=== PATIENT | male | born 1935 | race Caucasian/White ===

== ENCOUNTER 2019-04-28 13:01 | Emergency (ER) | payer OTHER, MEDICARE | END 2019-04-28 15:03 | disposition home or self-care (01) | LOC: FER 13:01 ==

== ENCOUNTER 2019-04-29 14:42 | Inpatient (IN) | payer OTHER, MEDICARE ==
--- NOTE | 2019-04-29 15:05 | PDOC ---
History of Present Illness - General Chief Complaint: Pain Stated Complaint: LEFT BACK PAIN POSSIBLE KIDNEY STONE Time Seen by Provider: 04/29/19 14:56 History Source: Patient, Family - History of Present Illness Travel History: Yes Initial Comments: 04/29/19 16:42 The patient is an 83 year old male with a significant PMH of CAD (s/p CABG x3), HTN, CVA, hyperlipidemia, dementia, and chronic back pain who presents to the emergency department with left flank pain and hematuria x 2 days, associated with nausea. Pain described as sharp and stabbing, associated with some left groin pain; worse with movement. Pt was seen yesterday in the [facility] ED with bilateral flank pain and 2 episodes of hematuria, a/w nausea. His symptoms improved, and he was dcd with urology followup. However last night he continued to have flank pain, worse on the left. Appt is later next week to see Dr Roy, but called today due to pain and referred to the ED for further evaluation. Denies fever, chills, vomiting, diarrhea and constipation. No bloody stools. Denies dysuria, frequency, urgency. +hematuria. Allergies: Penicillins Past surgical history: CABG Social history: Former smoker. No reported alcohol or drug use. PCP: Dr. Brendan Brantley 04/29/19 16:52 Past History - Past Medical History Allergies/Adverse Reactions: Allergies Allergy/AdvReac Type Severity Reaction Status Date / Time Penicillins Allergy Unknown Swelling Verified 04/29/19 14:50 Home Medications: Ambulatory Orders Amlodipine Besylate 10 mg PO DAILY 04/29/19 Aspirin [Aspirin EC] 81 mg PO DAILY 04/29/19 Atorvastatin Ca [Lipitor] 80 mg PO HS 04/29/19 Donepezil HCl 1 tab PO HS 04/29/19 Memantine HCl 10 mg PO BID 04/29/19 Metformin HCl [Glucophage] 500 mg PO DAILY 04/29/19 Sertraline HCl 50 mg PO TID 04/29/19 Vitamin B Complex [B Complex] 1 each PO DAILY 04/29/19 Anemia: No Asthma: No Cancer: Yes (PROSTATE) Cardiac Disorders: Yes (CABG x 3, CAD) CVA: Yes COPD: No CHF: No Dementia: Yes Diabetes: No GI Disorders: No Disorders: No HTN: Yes Hypercholesterolemia: Yes Liver Disease: No Psychiatric Problems: Yes (DEPRESSION) Seizures: No Thyroid Disease: No - Surgical History Abdominal Surgery: No Appendectomy: No Cardiac Surgery: (TRIPLE BYPASS) Cholecystectomy: No Lung Surgery: No Neurologic Surgery: No Orthopedic Surgery: No - Immunization History Td Vaccination: Yes TDAP Vaccination: No Immunization Up to Date: (UNSURE) - Suicide/Smoking/Psychosocial Hx Smoking Status: Yes Smoking History: Former smoker Have you smoked in the past 12 months: Yes Number of Cigarettes Smoked Daily: 0 If you are a former smoker, when did you quit?: JUN 2016 'Breaking Loose' booklet given: 06/22/15 Hx Alcohol Use: No Drug/Substance Use Hx: No Substance Use Type: None Hx Substance Use Treatment: No Review of Systems - Review of Systems Able to Perform ROS?: Yes Comments:: 04/29/19 15:02 Constitutional: no fevers or chills. +decreased appetite HEENT: no headache or dizziness. No congestion. CVS: no cp or syncope. Resp: no sob. No cough. Gastrointestinal: +flank and abdominal pain. +nausea. no vomiting or diarrhea. Genitourinary: +hematuria. +frequency. no dysuria, urgency MUSCULOSKELETAL: No joint pain and swelling. No neck pain. +back pain. SKIN: no redness or skin changes, no discharge, no rash. No wounds. Hematologic: no easy bruising/bleeding. NEUROLOGIC: No headache, dizziness, LOC or altered mental status. No weakness, numbness or tingling. Psych: no anxiety or depression Allergic/Immunologic: pcn allergy All other systems reviewed and negative, or as documented in HPI. 04/29/19 15:05 04/29/19 15:34 04/29/19 16:53 *Physical Exam - Physical Exam Comments: 04/29/19 15:03 General: Well appearing, awake and alert, NAD. HEENT: NCAT, PERRL, EOMI, clear conjunctiva, anicteric, moist mucus membranes, clear oropharynx, no oral lesions.. Neck: neck supple, FROM Resp: CTAB, normal and even respirations, no respiratory distress CVS: RRR, no murmurs, 2+ peripheral pulses throughout, no peripheral edema Abdomen: soft, nondistended, no peritoneal signs. +left flank TTP. : normal external genitalia, no lesions, normal testicular lie, +bilateral scrotal tenderness. No inguinal hernia. no scrotal sac erythema or discoloration Back: normal inspection; +left CVAT. MSK: no edema, ADEN x4, ROM intact. No clubbing or cyanosis. normal bulk and tone. Neuro: alert, no focal neuro deficits. 5/5 plantar and dorsiflexion. SILT in all extremities. Psych: calm and cooperative Skin: warm and well perfused, cap refill <2 sec, normal color 04/29/19 15:35 04/29/19 16:45 04/29/19 17:01 ED Treatment Course - LABORATORY CBC & Chemistry Diagram: 04/29/19 15:27 04/29/19 15:27 - RADIOLOGY Radiology Studies Ordered: Category Date Time Status SPIRAL- RENAL-STONE CT [CT] Stat CT Scan 04/29/19 14:54 Ordered Medical Decision Making - Medical Decision Making 04/29/19 15:02 See HPI for details. Prior notes reviewed, including admissions, discharges and consultations. Vital signs reviewed, soft BP Vital Signs Temp Pulse Resp BP Pulse Ox 97.5 F L 64 18 98/56 L 99 04/29/19 14:50 04/29/19 14:50 04/29/19 14:50 04/29/19 14:50 04/29/19 14:50 DDX. Renal colic, obstructed stone, biliary colic, metabolic/electrolyte derangements. GERD, PUD, esophageal spasm, pancreatitis, hepatitis, constipation , colitis, gastroenteritis, cholecystitis, UTI, pyelonephritis, ileus, SBO, medication side effect, hernia, appendicitis, diverticulitis, mesenteric ischemia. msk strain, mesenteric adenitis, psoas abscess. AAA. laboratory results and imaging reviewed, basic labs and lytes notable for +mild leukocytosis of 11K and HECTOR, Cr 1.9, when baseline is normal UA_neg for infection preliminary. f/u cultures and diff pending urine culture from yesterday as well CT sathish: left prox ureteral stone measuring 5mm, with associated hydro. renal cysts, nephrolithiasis unobstructing also seen, these unlikely to be the culprit. no other acute pathology noted scrotal sono with b/l varicoceles, no e/o hydrocele/torsion or testicular/ scrotal pathology ED course -interventions: analgesia, IVF, reassess - BP soft, 90/60s - has not eaten much today, so will hydrate. 04/29/19 16:31 - given additional zofran for nausea, getting hydration, pain improved with tylenol - repeat VS normalizing, mentating. no fever, nontoxic appearing - Urology cs with Dr Rangel online tutor, discussed care and admission for symptomatic ureteral stone with obstruction and HECTOR - Dr Brantley on vacation, unable to reach 04/29/19 17:01 - also spoke with Dr Malin- updated on case, give pt nontoxic/septic appearing, with unremarkable UA except for the HECTOR/mild leukocytosis from obstructed ureteral stone, stays at [facility] unless clinical course changes or needs operative management. IV abx x1 dose, IV ceftriaxone appropriate Admit for obstructed ureteral stone, hydronephrosis/ with HECTOR. Discussed results and management plan with pt and family member at bedside, agree with impression, treatment indications, recommendations and plan. s/o to Dr Godinez regarding admission at 04/29/19 17:04 *DC/Admit/Observation/Transfer Diagnosis at time of Disposition: Ureteral stone with hydronephrosis, HECTOR (acute kidney injury) - Discharge Dispostion Condition at time of disposition: Guarded Decision to Admit order: Yes Decision to Admit order Date/Time: 04/29/19 16:43 Decision to Admit Order Category Date Time Status Decision to Admit to Hospital Routine Admission 04/29/19 16:28 Ordered - Referrals Referrals: Brendan Brantley MD [Primary Care Provider] - - Patient Instructions - Post Discharge Activity
[2019-04-29] MEDS ORDERED: SODIUM CHLORIDE 0.9% 500 ML INFUS.BAG IV ONE (15:33)
[2019-04-29] MEDS ORDERED: ACETAMINOPHEN 1000 MG/100 ML VIAL (NON FORMULARY) IVPB ONE (15:33)
[2019-04-29] MEDS ORDERED: ACETAMINOPHEN INJECTION 100 ML IVPB ONE (15:38)
[2019-04-29 15:43] LABS: BASO % 2.2 % (0-2.0); EOS % 0.7 % (0-4.5); HEMATOCRIT 36.9 % (35.4-49); HEMOGLOBIN 12.2 GM/dl (11.7-16.9); LYMPH % 13.9 % (8-40); MCH 29.4 pg (25.7-33.7); MEAN CELL VOLUME 89.1 fl (80-96); MEAN PLT VOLUME 8.3 fl (7.5-11.1); MONO % 13.9 % (3.8-10.2); NEUT % 69.3 % (42.8-82.8); PLATELET COUNT 227 K/MM3 (134-434); RBC 4.15 M/mm3 (4.00-5.60); RDW 14.5 % (11.9-15.9); WHITE BLOOD COUNT 11.3 K/mm3 (4.0-10.8)
[2019-04-29 16:04] LABS: ALBUMIN 3.6 g/dl (3.4-5.0); BILIRUBIN,TOTAL 0.8 mg/dl (0.2-1); CREATININE 1.9 mg/dl (0.55-1.3); POTASSIUM 3.9 mmol/L (3.5-5.1)
[2019-04-29] MEDS ORDERED: ONDANSETRON 4 MG/2 ML VIAL IVPUSH ONE (16:42)
[2019-04-29] MEDS ORDERED: ONDANSETRON 4 MG/2 ML VIAL ONE (16:43)
[2019-04-29] MEDS ORDERED: CEFTRIAXONE 1,000 MG in DEXTROSE 5%-WATER - 50 ML IVPB ONE (17:04)
--- NOTE | 2019-04-29 17:27 | HP ---
Admitting History and Physical - Primary Care Physician PCP: Brendan Brantley - Admission Chief Complaint: flank pain History of Present Illness: 83 year old male with a significant PMH of CAD (s/p CABG x3 about 20 years ago) , HTN, CVA, hyperlipidemia, dementia, and chronic back pain who presents to the emergency department with left flank pain and hematuria x 2 days, associated with nausea. Pain described as sharp and stabbing, associated with some left groin pain; worse with movement. Pt was seen yesterday in the [facility] ED with bilateral flank pain and 2 episodes of hematuria, a/w nausea. His symptoms improved, and he was dcd with urology followup. However last night he continued to have flank pain, worse on the left. Appt is later next week to see Dr Roy, but called today due to pain and referred to the ED for further evaluation. 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), Dementia (mild) Cardiovascular: Yes: CAD, HTN, Hyperlipdemia Renal/: Yes: BPH, Other (prostate cancer 20 years ago) - Past Surgical History Past Surgical History: Yes: CABG (x 3) - Smoking History Smoking history: Former smoker Have you smoked in the past 12 months: No Aproximately how many cigarettes per day: 0 If you are a former smoker, when did you quit?: JUN 2016 - Alcohol/Substance Use Hx Alcohol Use: No - Social History Usual Living Arrangement: Yes: With Spouse ADL: Independent Occupation: retired History of Recent Travel: No Home Medications - Allergies Allergies/Adverse Reactions: Allergies Allergy/AdvReac Type Severity Reaction Status Date / Time Penicillins Allergy Unknown Swelling Verified 04/29/19 14:50 - Home Medications Home Medications: Ambulatory Orders Amlodipine Besylate 10 mg PO DAILY 04/29/19 Aspirin [Aspirin EC] 81 mg PO DAILY 04/29/19 Atorvastatin Ca [Lipitor] 80 mg PO HS 04/29/19 Donepezil HCl 1 tab PO HS 04/29/19 Memantine HCl 10 mg PO BID 04/29/19 Metformin HCl [Glucophage] 500 mg PO DAILY 04/29/19 Sertraline HCl 50 mg PO TID 04/29/19 Vitamin B Complex [B Complex] 1 each PO DAILY 04/29/19 Review of Systems - Review of Systems Constitutional: reports: Loss of Appetite (x 3 days) Eyes: reports: No Symptoms HENT: reports: No Symptoms Neck: reports: No Symptoms Cardiovascular: reports: No Symptoms Respiratory: reports: No Symptoms Gastrointestinal: reports: Nausea Genitourinary: reports: Flank Pain (left greater than right), Frequency Musculoskeletal: reports: Back Pain (lumbar area BL) Integumentary: reports: No Symptoms Neurological: reports: No Symptoms Endocrine: reports: No Symptoms Hematology/Lymphatic: reports: No Symptoms Psychiatric: reports: No Symptoms Physical Examination Vital Signs: Vital Signs Temperature 97.9 F 04/29/19 16:47 Pulse Rate 57 L 04/29/19 16:47 Respiratory Rate 16 04/29/19 16:47 Blood Pressure 121/65 04/29/19 16:47 O2 Sat by Pulse Oximetry (%) 99 04/29/19 16:47 Constitutional: Yes: Well Nourished, No Distress, Calm Eyes: Yes: WNL, Conjunctiva Clear, EOM Intact HENT: Yes: WNL, Atraumatic, Normocephalic Neck: Yes: WNL, Supple, Trachea Midline Cardiovascular: Yes: WNL, Regular Rate and Rhythm Respiratory: Yes: WNL, Regular, CTA Bilaterally Gastrointestinal: Yes: WNL, Normal Bowel Sounds, Soft, Tenderness (to LLQ) ...Rectal Exam: Yes: Deferred Renal/: Yes: CVA Tenderness - Left, CVA Tenderness - Right (L>R) Breast(s): Yes: WNL Musculoskeletal: Yes: Back Pain (lumbar BL) Extremities: Yes: WNL Edema: No Peripheral Pulses WNL: Yes Integumentary: Yes: Other (sternotomy scar) Neurological: Yes: WNL, Alert, Oriented ...Motor Strength: LLE (weakness, ambulated with walker), RLE Psychiatric: Yes: WNL, Alert, Oriented Labs: CBC, BMP 04/29/19 15:27 04/29/19 15:27 Imaging - Results Chest X-ray: Report Reviewed (no effusion or infiltartes, sternal wires), Image Reviewed Cat Scan: Report Reviewed (Left nonobstructing nephrolithiasis with a proximal ureter stone measuring 5 cm There is perinephric stranding. No other stones are seen. Gallstones with no CT evidence to suggest acute cholecystitis) EKG: Image Reviewed (HR 53, Qtc 459. No ST abnormalities) Problem List - Problems (1) CVA (cerebrovascular accident) Assessment/Plan: old CVA, residual LE weakness Fall precautions in place Use assistive devices-walker Code(s): I63.9 - CEREBRAL INFARCTION, UNSPECIFIED (2) BPH (benign prostatic hyperplasia) Code(s): N40.0 - BENIGN PROSTATIC HYPERPLASIA WITHOUT LOWER URINRY TRACT SYMP (3) S/P CABG x 3 Code(s): Z95.1 - PRESENCE OF AORTOCORONARY BYPASS GRAFT (4) Prostate CA Code(s): C61 - MALIGNANT NEOPLASM OF PROSTATE (5) Prophylactic measure Assessment/Plan: FEN IVF @ 100cc/hr monitor electrolytes diabetic diet DVT heparin sq Dispo admit to med surg floor full code discharge planning Code(s): Z29.9 - ENCOUNTER FOR PROPHYLACTIC MEASURES, UNSPECIFIED (6) HECTOR (acute kidney injury) Assessment/Plan: fluid bolus given in ED c/w IV hydration monitor Cr if creatinine continue to rise consider renal consult in am avoid nephrotoxic agents Code(s): N17.9 - ACUTE KIDNEY FAILURE, UNSPECIFIED (7) Ureteral stone with hydronephrosis Assessment/Plan: contacted by ED c/w IV hydration ceftriaxone given in ED as per strict I/Os Tylenol for mild to moderate pain, will try to avoid opiates given dementia. Can given Ofrimev if PO tylenol is not sufficient monitor temp and Wbc UA negative, Ucx pending Code(s): N13.2 - HYDRONEPHROSIS WITH RENAL AND URETERAL CALCULOUS OBSTRUCTION (8) CAD (coronary atherosclerotic disease) Assessment/Plan: low fat/cholesterol diet c/w asa Code(s): I25.10 - ATHSCL HEART DISEASE OF [place] CORONARY ARTERY W/O ANG PCTRS Qualifiers: Coronary Disease-Associated Artery/Lesion type: [place] artery [place] vs. transplanted heart: [place] heart Associated angina: angina presence unspecified Qualified Code(s): I25.10 - Atherosclerotic heart disease of [place] coronary artery without angina pectoris (9) Dementia Assessment/Plan: c/w home doses of namenda frequent re-orientation Code(s): F03.90 - UNSPECIFIED DEMENTIA WITHOUT BEHAVIORAL DISTURBANCE (10) HLD (hyperlipidemia) Assessment/Plan: c/w atorvastatin low fat/cholesterol diet Code(s): E78.5 - HYPERLIPIDEMIA, UNSPECIFIED Qualifiers: Hyperlipidemia type: other hyperlipidemia Qualified Code(s): E78.49 - Other hyperlipidemia; E78.4 - Other hyperlipidemia (11) Hypertension Assessment/Plan: c/w amlodopine with hold parameters Code(s): I10 - ESSENTIAL (PRIMARY) HYPERTENSION Qualifiers: Hypertension type: essential hypertension Qualified Code(s): I10 - Essential (primary) hypertension (12) Diabetes Assessment/Plan: c/w metformin BGM ac/HS with novolog sliding scale diabetic diet Code(s): E11.9 - TYPE 2 DIABETES MELLITUS WITHOUT COMPLICATIONS Visit type - Emergency Visit Emergency Visit: Yes ED Registration Date: 04/29/19 Care time: The patient presented to the Emergency Department on the above date and was hospitalized for further evaluation of their emergent condition. - New Patient This patient is new to me today: Yes Date on this admission: 04/29/19 - Critical Care Critical Care patient: No
[2019-04-29] MEDS ORDERED: cefTRIAXone SODIUM 1 GM VIAL ONE (17:35)
[2019-04-29] MEDS ORDERED: DONEPEZIL HCL 5 MG TABLET (FP) PO SCH (22:00)
[2019-04-29] MEDS ORDERED: SODIUM CHLORIDE 1,000 ML IV SCH (22:15)
[2019-04-29] MEDS: MEMANTINE HCL 10 MG TABLET (FP) PO SCH (22:22)
[2019-04-29] MEDS: INSULIN SLIDING SCALE (NOVOLOG) 1 VIAL SQ SCH (22:22)
[2019-04-29] MEDS: ATORVASTATIN CA 80 MG TABLET (FP) PO SCH (22:22)
[2019-04-29 22:39] VITALS: BMI 25.8
[2019-04-29] MEDS: ACETAMINOPHEN 325 MG TABLET (FP) PO PRN (22:45)
[2019-04-30] MEDS: morphine CARPU-JECT 2 MG/1 ML DISP.SYRIN IVPUSH PRN ×2 (03:00→08:42)
[2019-04-30] MEDS: ACETAMINOPHEN 325 MG TABLET (FP) PO PRN ×2 (05:15→15:39)
[2019-04-30] MEDS ORDERED: SERTRALINE HCL 50 MG TABLET (FP) PO SCH (06:00)
[2019-04-30] MEDS: INSULIN SLIDING SCALE (NOVOLOG) 1 VIAL SQ SCH ×3 (06:38→17:31)
[2019-04-30] MEDS ORDERED: metFORMIN HCL 500 MG TABLET (FP) PO SCH (07:00)
--- NOTE | 2019-04-30 09:23 | PN ---
Physical Exam: SUBJECTIVE: Patient seen and examined. OBJECTIVE: Vital Signs Period Temp Pulse Resp BP Sys/[place] Pulse Ox Last 24 Hr 97.5 F-99.7 F 57-64 16-19 98-149/49-65 93-99 GENERAL: The patient is awake, alert, and fully oriented, in no acute distress. HEAD: Normal with no signs of trauma. EYES: PERRL, extraocular movements intact, sclera anicteric, conjunctiva clear. No ptosis. ENT: Ears normal, nares patent, oropharynx clear without exudates, moist mucous membranes. NECK: Trachea midline, full range of motion, supple. LUNGS: Breath sounds equal, clear to auscultation bilaterally, no wheezes, no crackles, no accessory muscle use. HEART: Regular rate and rhythm, S1, S2 without murmur, rub or gallop. ABDOMEN: Soft, nontender, nondistended, normoactive bowel sounds, no guarding, no rebound, no hepatosplenomegaly, no masses. EXTREMITIES: 2+ pulses, warm, well-perfused, no edema. NEUROLOGICAL: Cranial nerves II through XII grossly intact. Normal speech, gait not observed. PSYCH: Normal mood, normal affect. SKIN: Warm, dry, normal turgor, no rashes or lesions noted Laboratory Results - last 24 hr 04/29/19 04/29/19 04/29/19 15:15 15:27 15:27 WBC 11.3 H RBC 4.15 Hgb 12.2 Hct 36.9 MCV 89.1 MCH 29.4 MCHC 33.0 RDW 14.5 Plt Count 227 MPV 8.3 Absolute Neuts (auto) 7.8 Neutrophils % 69.3 Lymphocytes % 13.9 D Monocytes % 13.9 H Eosinophils % 0.7 D Basophils % 2.2 H D Sodium 138 Potassium 3.9 Chloride 104 Carbon Dioxide 29 Anion Gap 5 L BUN 32.0 H Creatinine 1.9 H Est GFR (CKD-EPI)AfAm 37.48 Est GFR (CKD-EPI)NonAf 32.34 POC Glucometer Random Glucose 96 Calcium 9.0 Total Bilirubin 0.8 AST 17 ALT 17 Alkaline Phosphatase 67 Total Protein 7.0 Albumin 3.6 Urine Color Yellow Urine Appearance Clear Urine pH 5.0 Urine Protein Negative Urine Glucose (UA) Negative Urine Ketones Negative Urine Blood Negative Urine Nitrite Negative Urine Bilirubin Negative Urine Urobilinogen 0.2 Ur Leukocyte Esterase Negative 04/29/19 04/30/19 22:20 06:33 WBC RBC Hgb Hct MCV MCH MCHC RDW Plt Count MPV Absolute Neuts (auto) Neutrophils % Lymphocytes % Monocytes % Eosinophils % Basophils % Sodium Potassium Chloride Carbon Dioxide Anion Gap BUN Creatinine Est GFR (CKD-EPI)AfAm Est GFR (CKD-EPI)NonAf POC Glucometer 183 154 Random Glucose Calcium Total Bilirubin AST ALT Alkaline Phosphatase Total Protein Albumin Urine Color Urine Appearance Urine pH Urine Protein Urine Glucose (UA) Urine Ketones Urine Blood Urine Nitrite Urine Bilirubin Urine Urobilinogen Ur Leukocyte Esterase Active Medications Generic Name Dose Route Start Last Admin Trade Name Freq PRN Reason Stop Dose Admin Acetaminophen 650 mg 04/29/19 22:22 04/30/19 05:15 Tylenol - PO 650 mg Q6H PRN Administration Fever Or Pain Amlodipine Besylate 10 mg 04/30/19 10:00 Norvasc - PO DAILY RUTH Aspirin 81 mg 04/30/19 10:00 Ecotrin - PO DAILY RUTH Atorvastatin Calcium 80 mg 04/29/19 22:00 04/29/19 22:22 Lipitor - PO 80 mg HS RUTH Administration Donepezil HCl 5 mg 04/29/19 22:00 04/29/19 22:22 Aricept - PO 5 mg HS RUTH Administration Sodium Chloride 1,000 mls @ 100 mls/hr 04/29/19 22:15 04/29/19 22:48 Normal Saline - IV 100 mls/hr ASDIR RUTH Administration Insulin Aspart 1 vial 04/29/19 22:00 04/30/19 06:38 Novolog Vial Sliding Scale - SQ 4 units ACHS RUTH Administration Protocol Memantine 10 mg 04/29/19 22:00 04/29/19 22:22 Namenda - PO 10 mg BID RUTH Administration Metformin HCl 500 mg 04/30/19 07:00 04/30/19 06:34 Glucophage - PO 500 mg ACBK RUTH Administration Morphine Sulfate 2 mg 04/30/19 02:49 04/30/19 08:42 Morphine Injection - IVPUSH 2 mg Q4H PRN Administration PAIN LEVEL 6-10 Multivitamins 1 each 04/30/19 10:00 Total B With C - PO DAILY RUTH Sertraline HCl 50 mg 04/30/19 06:00 Zoloft - PO TID RUTH ASSESSMENT/PLAN
[2019-04-30] MEDS ORDERED: VITAMIN B COMPLEX W/C COMBO TABLET (FP) PO SCH (10:00)
[2019-04-30] MEDS ORDERED: VITAMIN B COMPLEX PO SCH (10:00)
--- NOTE | 2019-04-30 10:09 | EKG ---
Test Reason : Blood Pressure : / mmHG Vent. Rate : 053 BPM Atrial Rate : 053 BPM P-R Int : 158 ms QRS Dur : 082 ms QT Int : 490 ms P-R-T Axes : 054 045 060 degrees QTc Int : 459 ms SINUS BRADYCARDIA OTHERWISE NORMAL ECG WHEN COMPARED WITH ECG OF 14-DEC-2017 17:10, PREMATURE VENTRICULAR COMPLEXES ARE NO LONGER PRESENT Confirmed by IVAN ESPITIA MD ([id number]) on 04/30/2019 10:09:07 AM Referred By: DR ESCALONA Confirmed By:IVAN ESPITIA MD
[2019-04-30] MEDS: ASPIRIN COATED 81 MG TABLET.EC PO SCH (10:30)
[2019-04-30] MEDS: amLODIPine BESYLATE 10 MG TABLET (FP) PO SCH (10:30)
[2019-04-30] MEDS: MEMANTINE HCL 10 MG TABLET (FP) PO SCH ×2 (10:30→21:16)
[2019-04-30 10:49] LABS: BASO % 0.3 % (0-2.0); EOS % 0.1 % (0-4.5); HEMATOCRIT 35.9 % (35.4-49); HEMOGLOBIN 11.9 GM/dl (11.7-16.9); MCH 29.9 pg (25.7-33.7); MCHC 33.1 g/dl (32.0-35.9); MEAN CELL VOLUME 90.3 fl (80-96); MEAN PLT VOLUME 8.6 fl (7.5-11.1); MONO % 9.1 % (3.8-10.2); NEUT % 83.5 % (42.8-82.8); PLATELET COUNT 190 K/MM3 (134-434); RBC 3.98 M/mm3 (4.00-5.60); RDW 14.4 % (11.9-15.9); WHITE BLOOD COUNT 13.3 K/mm3 (4.0-10.8)
[2019-04-30 11:05] LABS: ALBUMIN 2.9 g/dl (3.4-5.0); CALCIUM 8.4 mg/dl (8.5-10); CREATININE 1.4 mg/dl (0.55-1.3); MAGNESIUM 1.8 mg/dL (1.8-2.4); PHOSPHOROUS 3.1 mg/dl (2.5-4.9); POTASSIUM 3.8 mmol/L (3.5-5.1); TOT PROT 6.2 g/dl (6.4-8.2)
[2019-04-30] MEDS ORDERED: NALOXONE HCL 0.4 MG/ML VIAL IVPUSH ONE ×2 (11:45→12:03)
[2019-04-30] MEDS: SERTRALINE HCL 50 MG TABLET (FP) PO SCH (12:17)
--- NOTE | 2019-04-30 13:29 | RAPID ---
Physical Examination Vital Signs: Entered patient's room for routine exam. Found patient lethargic, somnolent. A& Ox 1. Slow verbal responses. Complained of pain, pointing to lower mid abdomen. present, states patient is not at baseline mentation. Received 2mg morphine at 3:00am, 2mg morphine at 8:42am VS: T 97.9; BP 155/56 p 60 RR 13 Physical exam General/Neuro: A&Ox1; lethargic; pinpoint 1mm pupils CV: S1, S2 Lungs: shallow, slow breathing, poor inspiratory effort Abdomen: diffuse abdominal tenderness; no CVA tenderness Ext: no edema ECG: sinus linda @ 53bm, no significant change from yesterday Assessment & Plan Possible opiate or related narcotic overdose Hypoxic respiratory failure --placed on NRB and sat improved to 100% --first dose narcan given with slight improvement in mental status, A&Ox 3 but still lethargic, slow verbal responses, and pupils remained miotic; second dose narcan given; --IV fluids running --sent for stat CT imaging Labs: CBC, BMP 04/30/19 10:19 04/30/19 10:19
--- NOTE | 2019-04-30 13:34 | PN ---
Physical Exam: SUBJECTIVE: Patient seen and examined. Still sleepy but easily arousable. Denies pain at this time. OBJECTIVE: GENERAL: The patient is awake, sleepy but arousable. Oriented x 3. EYES: PERRL, 2mm; extraocular movements intact, sclera anicteric, conjunctiva clear. No ptosis. LUNGS: CTA HEART: Regular rate and rhythm, S1, S2 ABDOMEN: Soft, diffuse abdominal tenderness EXTREMITIES: 2+ pulses, warm, well-perfused, no edema. Laboratory Results - last 24 hr 04/29/19 04/29/19 04/29/19 15:15 15:27 15:27 WBC 11.3 H RBC 4.15 Hgb 12.2 Hct 36.9 MCV 89.1 MCH 29.4 MCHC 33.0 RDW 14.5 Plt Count 227 MPV 8.3 Absolute Neuts (auto) 7.8 Neutrophils % 69.3 Lymphocytes % 13.9 D Monocytes % 13.9 H Eosinophils % 0.7 D Basophils % 2.2 H D Sodium 138 Potassium 3.9 Chloride 104 Carbon Dioxide 29 Anion Gap 5 L BUN 32.0 H Creatinine 1.9 H Est GFR (CKD-EPI)AfAm 37.48 Est GFR (CKD-EPI)NonAf 32.34 POC Glucometer Random Glucose 96 Calcium 9.0 Phosphorus Magnesium Total Bilirubin 0.8 AST 17 ALT 17 Alkaline Phosphatase 67 Total Protein 7.0 Albumin 3.6 Urine Color Yellow Urine Appearance Clear Urine pH 5.0 Urine Protein Negative Urine Glucose (UA) Negative Urine Ketones Negative Urine Blood Negative Urine Nitrite Negative Urine Bilirubin Negative Urine Urobilinogen 0.2 Ur Leukocyte Esterase Negative 04/29/19 04/30/19 04/30/19 22:20 06:33 10:19 WBC 13.3 H RBC 3.98 L Hgb 11.9 Hct 35.9 MCV 90.3 MCH 29.9 MCHC 33.1 RDW 14.4 Plt Count 190 MPV 8.6 Absolute Neuts (auto) 11.2 Neutrophils % 83.5 H D Lymphocytes % 7.0 L D Monocytes % 9.1 Eosinophils % 0.1 D Basophils % 0.3 Sodium Potassium Chloride Carbon Dioxide Anion Gap BUN Creatinine Est GFR (CKD-EPI)AfAm Est GFR (CKD-EPI)NonAf POC Glucometer 183 154 Random Glucose Calcium Phosphorus Magnesium Total Bilirubin AST ALT Alkaline Phosphatase Total Protein Albumin Urine Color Urine Appearance Urine pH Urine Protein Urine Glucose (UA) Urine Ketones Urine Blood Urine Nitrite Urine Bilirubin Urine Urobilinogen Ur Leukocyte Esterase 04/30/19 04/30/19 10:19 11:30 WBC RBC Hgb Hct MCV MCH MCHC RDW Plt Count MPV Absolute Neuts (auto) Neutrophils % Lymphocytes % Monocytes % Eosinophils % Basophils % Sodium 137 Potassium 3.8 Chloride 106 Carbon Dioxide 26 Anion Gap 5 L BUN 24.0 H Creatinine 1.4 H Est GFR (CKD-EPI)AfAm 54.22 Est GFR (CKD-EPI)NonAf 46.79 POC Glucometer 136 Random Glucose 154 H Calcium 8.4 L Phosphorus 3.1 Magnesium 1.8 Total Bilirubin 1.0 AST 15 ALT 16 Alkaline Phosphatase 62 Total Protein 6.2 L Albumin 2.9 L Urine Color Urine Appearance Urine pH Urine Protein Urine Glucose (UA) Urine Ketones Urine Blood Urine Nitrite Urine Bilirubin Urine Urobilinogen Ur Leukocyte Esterase Active Medications Generic Name Dose Route Start Last Admin Trade Name Freq PRN Reason Stop Dose Admin Acetaminophen 650 mg 04/29/19 22:22 04/30/19 05:15 Tylenol - PO 650 mg Q6H PRN Administration Fever Or Pain Amlodipine Besylate 10 mg 04/30/19 10:00 04/30/19 10:30 Norvasc - PO 10 mg DAILY RUTH Administration Aspirin 81 mg 04/30/19 10:00 04/30/19 10:30 Ecotrin - PO 81 mg DAILY RUTH Administration Atorvastatin Calcium 80 mg 04/29/19 22:00 04/29/19 22:22 Lipitor - PO 80 mg HS RUTH Administration Donepezil HCl 5 mg 04/29/19 22:00 04/29/19 22:22 Aricept - PO 5 mg HS RUTH Administration Sodium Chloride 1,000 mls @ 100 mls/hr 04/29/19 22:15 04/29/19 22:48 Normal Saline - IV 100 mls/hr ASDIR RUTH Administration Metronidazole 500 mg in 100 mls @ 100 mls/hr 04/30/19 13:00 04/30/19 13:21 Flagyl 500mg Premixed Ivpb - IVPB 100 mls/hr Q8H-IV RUTH Administration Insulin Aspart 1 vial 04/29/19 22:00 04/30/19 11:31 Novolog Vial Sliding Scale - SQ Not Given ACHS RUTH Protocol Memantine 10 mg 04/29/19 22:00 04/30/19 10:30 Namenda - PO 10 mg BID RUTH Administration Sertraline HCl 50 mg 04/30/19 12:15 04/30/19 12:17 Zoloft - PO Not Given DAILY [facility] PCP: Dr. Brantley Imaging 04/30 CT head: no acute pathology 04/30 CT chest, abd, pelvis: small bilateral pleural effusions L>R; 3mm left UVJ calculus with moderate hydronephrosis ASSESSMENT/PLAN: 83 year-old male with a PMH significant for HTN, HLD, CAD s/p 3vCABG, CVA 2015, Type II NIDDM, prostate cancer, and dementia. Admitted for partially obstructing ureter stone and HECTOR. Hospital course complicated this morning by altered mental status possibly due to opiod overdose. Partially obstructing ureter stone Left hydronephrosis --3mm left UVJ calculus with moderate hydro --afebrile, WBC trending up; UA negative; cultures pending; observe off antibiotics --IV fluids running --strain urine --strict I&Os --urology following Acute kidney injury --Cr 1.9 on admission, 1.4 today, 1.0 baseline --continue to trend Hypertension --BP stable --continue amlodipine Hyperlipidemia --continue Lipitor Coronary artery disease s/p 3vCABG --continue ASA, statin CVA --continue ASA, statin Prostate cancer --stable Dementia --continue Namenda, Aricept Type II NIDDM --stop metformin --Novolog sliding scale coverage Metabolic encephalopathy --likely secondary to effects of opioids --narcan x 2 with improvement in mental status --CT head unremarkable FEN Fluids: NS@75mL/hr Electrolytes: replete as indicated Nutrition: low sodium DVT prophylaxis: SCDs, oob, ambulation; no chemical prophylaxis due to possible surgical intervention Physical therapy Dispo: continues to require inpatient care. Full code. Transfer to [facility] as there are no OR services at [facility] over the weekend. Visit type - Emergency Visit Emergency Visit: Yes ED Registration Date: 04/29/19 Care time: The patient presented to the Emergency Department on the above date and was hospitalized for further evaluation of their emergent condition. - New Patient This patient is new to me today: Yes Date on this admission: 04/30/19 - Critical Care Critical Care patient: No
--- NOTE | 2019-04-30 14:24 | EKG ---
Test Reason : Blood Pressure : / mmHG Vent. Rate : 057 BPM Atrial Rate : 057 BPM P-R Int : 146 ms QRS Dur : 076 ms QT Int : 454 ms P-R-T Axes : 043 034 048 degrees QTc Int : 441 ms SINUS BRADYCARDIA WITH FREQUENT PREMATURE VENTRICULAR COMPLEXES IN A PATTERN OF BIGEMINY NONSPECIFIC ST ABNORMALITY ABNORMAL ECG WHEN COMPARED WITH ECG OF 29-APR-2019 16:54, PREMATURE VENTRICULAR COMPLEXES ARE NOW PRESENT Confirmed by IVAN ESPITIA MD ([id number]) on 04/30/2019 2:23:29 PM Referred By: LEOBARDO BLANCA Confirmed By:IVAN ESPITIA MD
[2019-04-30] MEDS ORDERED: CEFTRIAXONE 1 GM in DEXTROSE 5%-WATER - 100 ML IVPB SCH (15:30)
[2019-04-30] MEDS: SODIUM CHLORIDE 1,000 ML IV SCH (15:38)
[2019-04-30] MEDS ORDERED: ACETAMINOPHEN 1000 MG/100 ML VIAL (NON FORMULARY) IVPB ONE (16:11)
--- NOTE | 2019-04-30 18:09 | CON.GU ---
Consult Consult Specialty:: Referred by:: Buddy Reason for Consultation:: left ureteral stone - History of Present Illness Chief Complaint: left ureteral stone History of Present Illness: 83 year old male with his first kidney stone. He was admitted yesterday and CAT scan showed a 3-5mm upper left ureteral stone with hydro. A repeat CT today showed a 3mm stone at the distal left ureter. He denies any current pain. No fever., urine is clean. no evidence of sepsis. 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 No: Renal Calculi - Past Surgical History Past Surgical History: Yes: CABG (x 3) - Alcohol/Substance Use Hx Alcohol Use: No - Smoking History Smoking history: Former smoker Have you smoked in the past 12 months: No Aproximately how many cigarettes per day: 0 If you are a former smoker, when did you quit?: JUN 2016 - Social History ADL: Independent Occupation: retired History of Recent Travel: No Home Medications - Allergies Allergies/Adverse Reactions: Allergies Allergy/AdvReac Type Severity Reaction Status Date / Time Penicillins Allergy Unknown Swelling Verified 04/29/19 14:50 - Home Medications Home Medications: Ambulatory Orders Amlodipine Besylate 10 mg PO DAILY 04/29/19 Aspirin [Aspirin EC] 81 mg PO DAILY 04/29/19 Atorvastatin Ca [Lipitor] 80 mg PO HS 04/29/19 Donepezil HCl 1 tab PO HS 04/29/19 Memantine HCl 10 mg PO BID 04/29/19 Metformin HCl [Glucophage] 500 mg PO DAILY 04/29/19 Sertraline HCl 50 mg PO TID 04/29/19 Vitamin B Complex [B Complex] 1 each PO DAILY 04/29/19 Review of Systems - Review of Systems Genitourinary: reports: Flank Pain Physical Exam- Vital Signs: Vital Signs Temperature 97.9 F 04/30/19 12:47 Pulse Rate 50 L 04/30/19 12:47 Respiratory Rate 16 04/30/19 12:47 Blood Pressure 159/48 L 04/30/19 12:47 O2 Sat by Pulse Oximetry (%) 100 04/30/19 12:47 Renal/: Yes: CVA Tenderness - Left. No: CVA Tenderness - Right, Young Present Labs: CBC, BMP 04/30/19 10:19 04/30/19 10:19 Imaging - Results Cat Scan: Report Reviewed Problem List - Problems (1) Ureteral stone with hydronephrosis Assessment/Plan: left ureteral stone which is progressing with medical expulsive therapy. It is of a size and position that should pass. continue fluids and flomax and strain all urine Code(s): N13.2 - HYDRONEPHROSIS WITH RENAL AND URETERAL CALCULOUS OBSTRUCTION
[2019-04-30] MEDS: ACETAMINOPHEN 1000 MG/100 ML VIAL (NON FORMULARY) IVPB SCH (21:15)
[2019-04-30] MEDS: ATORVASTATIN CA 80 MG TABLET (FP) PO SCH (21:16)
[2019-05-01] MEDS: INSULIN SLIDING SCALE (NOVOLOG) 1 VIAL SQ SCH ×5 (00:23→21:26)
[2019-05-01] MEDS: ACETAMINOPHEN 1000 MG/100 ML VIAL (NON FORMULARY) IVPB SCH ×3 (03:20→15:30)
[2019-05-01] MEDS ORDERED: traMADol HCL 50 MG TABLET PO ONE (06:42)
[2019-05-01] MEDS ORDERED: ONDANSETRON 4 MG TABLET PO ONE (06:42)
[2019-05-01] MEDS: TAMSULOSIN HCL 0.4 MG CAP PO SCH (08:30)
[2019-05-01 08:35] LABS: BASO % 0.3 % (0-2.0); EOS % 1.4 % (0-4.5); HEMATOCRIT 34.6 % (35.4-49); HEMOGLOBIN 11.5 GM/dl (11.7-16.9); LYMPH % 11.8 % (8-40); MCH 29.9 pg (25.7-33.7); MCHC 33.1 g/dl (32.0-35.9); MEAN CELL VOLUME 90.4 fl (80-96); MEAN PLT VOLUME 8.7 fl (7.5-11.1); MONO % 9.5 % (3.8-10.2); PLATELET COUNT 170 K/MM3 (134-434); RBC 3.83 M/mm3 (4.00-5.60); RDW 14.3 % (11.9-15.9); WHITE BLOOD COUNT 9.5 K/mm3 (4.0-10.8)
--- NOTE | 2019-05-01 09:34 | PN ---
Physical Exam: SUBJECTIVE: Patient seen and examined, pt received IV tylenol for pain, pt tired , c/o pain, but improving. seen by Urology started on flomax WBC wnl today OBJECTIVE: Vital Signs Period Temp Pulse Resp BP Sys/Guadalupe Pulse Ox Last 24 Hr 97.4 F-98.4 F 32-62 16-19 142-172/47-69 88-100 GENERAL: The patient is awake, alert, and fully oriented, in no acute distress. HEAD: Normal with no signs of trauma. EYES: PERRL, extraocular movements intact, sclera anicteric, conjunctiva clear. No ptosis. ENT: Ears normal, nares patent, oropharynx clear without exudates, moist mucous membranes. NECK: Trachea midline, full range of motion, supple. LUNGS: Breath sounds equal, clear to auscultation bilaterally, no wheezes, no crackles, no accessory muscle use. HEART: Regular rate and rhythm, S1, S2 without murmur, rub or gallop. ABDOMEN: Soft, nontender, nondistended, normoactive bowel sounds, no guarding, no rebound, no hepatosplenomegaly, no masses. EXTREMITIES: 2+ pulses, warm, well-perfused, no edema. NEUROLOGICAL: Cranial nerves II through XII grossly intact. Normal speech, gait not observed. PSYCH: Normal mood, normal affect. SKIN: Warm, dry, normal turgor, no rashes or lesions noted Laboratory Results - last 24 hr 04/30/19 04/30/19 04/30/19 10:19 10:19 11:30 WBC 13.3 H RBC 3.98 L Hgb 11.9 Hct 35.9 MCV 90.3 MCH 29.9 MCHC 33.1 RDW 14.4 Plt Count 190 MPV 8.6 Absolute Neuts (auto) 11.2 Neutrophils % 83.5 H D Lymphocytes % 7.0 L D Monocytes % 9.1 Eosinophils % 0.1 D Basophils % 0.3 Sodium 137 Potassium 3.8 Chloride 106 Carbon Dioxide 26 Anion Gap 5 L BUN 24.0 H Creatinine 1.4 H Est GFR (CKD-EPI)AfAm 54.22 Est GFR (CKD-EPI)NonAf 46.79 POC Glucometer 136 Random Glucose 154 H Lactic Acid Calcium 8.4 L Phosphorus 3.1 Magnesium 1.8 Total Bilirubin 1.0 AST 15 ALT 16 Alkaline Phosphatase 62 Total Protein 6.2 L Albumin 2.9 L 04/30/19 04/30/19 04/30/19 13:21 17:02 22:23 WBC RBC Hgb Hct MCV MCH MCHC RDW Plt Count MPV Absolute Neuts (auto) Neutrophils % Lymphocytes % Monocytes % Eosinophils % Basophils % Sodium Potassium Chloride Carbon Dioxide Anion Gap BUN Creatinine Est GFR (CKD-EPI)AfAm Est GFR (CKD-EPI)NonAf POC Glucometer 116 107 Random Glucose Lactic Acid 0.6 Calcium Phosphorus Magnesium Total Bilirubin AST ALT Alkaline Phosphatase Total Protein Albumin 05/01/19 05/01/19 05/01/19 06:50 07:44 07:44 WBC 9.5 RBC 3.83 L Hgb 11.5 L Hct 34.6 L MCV 90.4 MCH 29.9 MCHC 33.1 RDW 14.3 Plt Count 170 MPV 8.7 Absolute Neuts (auto) 7.4 Neutrophils % 77.0 Lymphocytes % 11.8 D Monocytes % 9.5 Eosinophils % 1.4 D Basophils % 0.3 Sodium Potassium Chloride Carbon Dioxide Anion Gap BUN Creatinine Est GFR (CKD-EPI)AfAm Est GFR (CKD-EPI)NonAf POC Glucometer 108 Random Glucose Lactic Acid Calcium Phosphorus Magnesium 1.9 Total Bilirubin AST ALT Alkaline Phosphatase Total Protein Albumin Active Medications Generic Name Dose Route Start Last Admin Trade Name Freq PRN Reason Stop Dose Admin Acetaminophen 1,000 mg 04/30/19 21:00 05/01/19 03:20 Ofirmev Injection - IVPB 05/01/19 15:01 1,000 mg Q6H RUTH Administration Amlodipine Besylate 10 mg 04/30/19 10:00 04/30/19 10:30 Norvasc - PO 10 mg DAILY RUTH Administration Aspirin 81 mg 04/30/19 10:00 04/30/19 10:30 Ecotrin - PO 81 mg DAILY RUTH Administration Atorvastatin Calcium 80 mg 04/29/19 22:00 04/30/19 21:16 Lipitor - PO 80 mg HS RUTH Administration Donepezil HCl 5 mg 04/29/19 22:00 04/29/19 22:22 Aricept - PO 5 mg HS RUTH Administration Sodium Chloride 1,000 mls @ 75 mls/hr 04/30/19 15:07 04/30/19 15:38 Normal Saline - IV 75 mls/hr ASDIR RUTH Administration Insulin Aspart 1 vial 04/29/19 22:00 05/01/19 06:53 Novolog Vial Sliding Scale - SQ Not Given ACHS [facility] Protocol Memantine 10 mg 04/29/19 22:00 04/30/19 21:16 Namenda - PO 10 mg BID RUTH Administration Sertraline HCl 50 mg 04/30/19 12:15 04/30/19 12:17 Zoloft - PO Not Given DAILY [facility] Tamsulosin HCl 0.4 mg 05/01/19 08:30 Flomax - PO DAILY@0830 [facility] ASSESSMENT/PLAN: 83 year-old male with a PMH significant for HTN, HLD, CAD s/p 3vCABG, CVA 2015, Type II NIDDM, prostate cancer, and dementia. Admitted for partially obstructing ureter stone and HECTOR. Hospital course complicated this morning by altered mental status possibly due to opiod overdose. Partially obstructing ureter stone Left hydronephrosis --3mm left UVJ calculus with moderate hydro --started on empiric Levofloxacin, --WBC 9.5 --urine cx no growth --IV fluids running --strain urine --strict I&Os --urology following Acute kidney injury --Cr 1.9 on admission, 1.4 today, 1.0 baseline --continue to trend Hypertension --BP stable --continue amlodipine Hyperlipidemia --continue Lipitor Coronary artery disease s/p 3vCABG --continue ASA, statin CVA --continue ASA, statin Prostate cancer --stable Dementia --continue Namenda, Aricept Type II NIDDM --stop metformin --Novolog sliding scale coverage Metabolic encephalopathy --likely secondary to effects of opioids --narcan x 2 with improvement in mental status --CT head unremarkable FEN Fluids: NS@75mL/hr Electrolytes: replete as indicated Nutrition: low sodium DVT prophylaxis: SCDs, oob, ambulation; no chemical prophylaxis due to possible surgical intervention Physical therapy Visit type - Emergency Visit Emergency Visit: Yes ED Registration Date: 04/29/19 Care time: The patient presented to the Emergency Department on the above date and was hospitalized for further evaluation of their emergent condition. - New Patient This patient is new to me today: Yes Date on this admission: 05/01/19 - Critical Care Critical Care patient: No
[2019-05-01] MEDS: ASPIRIN COATED 81 MG TABLET.EC PO SCH (09:45)
[2019-05-01] MEDS: amLODIPine BESYLATE 10 MG TABLET (FP) PO SCH (10:00)
[2019-05-01] MEDS: MEMANTINE HCL 10 MG TABLET (FP) PO SCH ×2 (10:00→21:26)
[2019-05-01] MEDS: SERTRALINE HCL 50 MG TABLET (FP) PO SCH (10:20)
[2019-05-01] MEDS: SODIUM CHLORIDE 1,000 ML IV SCH (15:00)
[2019-05-01] MEDS ORDERED: INSULIN (NOVOLOG) ASPART 100 UNITS/ML 10ML VIAL ONE (21:22)
[2019-05-01] MEDS: ATORVASTATIN CA 80 MG TABLET (FP) PO SCH (21:26)
[2019-05-02] MEDS: INSULIN SLIDING SCALE (NOVOLOG) 1 VIAL SQ SCH ×4 (06:29→21:21)
[2019-05-02] MEDS: MEMANTINE HCL 10 MG TABLET (FP) PO SCH ×2 (09:17→21:17)
[2019-05-02] MEDS: amLODIPine BESYLATE 10 MG TABLET (FP) PO SCH (09:17)
[2019-05-02] MEDS: TAMSULOSIN HCL 0.4 MG CAP PO SCH (09:17)
[2019-05-02] MEDS: SERTRALINE HCL 50 MG TABLET (FP) PO SCH (09:17)
[2019-05-02] MEDS: ASPIRIN COATED 81 MG TABLET.EC PO SCH (09:17)
[2019-05-02 09:29] LABS: HEMATOCRIT 33.3 % (35.4-49); HEMOGLOBIN 10.9 GM/dl (11.7-16.9); MCH 29.8 pg (25.7-33.7); MCHC 32.6 g/dl (32.0-35.9); MEAN CELL VOLUME 91.3 fl (80-96); MEAN PLT VOLUME 9.4 fl (7.5-11.1); PLATELET COUNT 177 K/MM3 (134-434); RBC 3.65 M/mm3 (4.00-5.60); RDW 14.2 % (11.9-15.9); WHITE BLOOD COUNT 11.8 K/mm3 (4.0-10.8)
[2019-05-02 09:32] LABS: ALBUMIN 2.4 g/dl (3.4-5.0); CALCIUM 8.3 mg/dl (8.5-10); CREATININE 1.4 mg/dl (0.55-1.3); POTASSIUM 3.7 mmol/L (3.5-5.1); TOT PROT 5.7 g/dl (6.4-8.2)
[2019-05-02 10:52] LABS: PLATELET ESTIMATE ADEQUATE
--- NOTE | 2019-05-02 11:33 | PN ---
Physical Exam: SUBJECTIVE: Patient seen and examined pt oob in chair, pt ate better than yesterday, feels tired OBJECTIVE: Vital Signs Period Temp Pulse Resp BP Sys/Guadalupe Pulse Ox Last 24 Hr 97.6 F-98.5 F 64-70 16-20 139-158/56-69 92-100 GENERAL: The patient is awake, alert, and fully oriented, in no acute distress. HEAD: Normal with no signs of trauma. EYES: PERRL, extraocular movements intact, sclera anicteric, conjunctiva clear. No ptosis. ENT: Ears normal, nares patent, oropharynx clear without exudates, moist mucous membranes. NECK: Trachea midline, full range of motion, supple. LUNGS: Breath sounds equal, clear to auscultation bilaterally, no wheezes, no crackles, no accessory muscle use. HEART: Regular rate and rhythm, S1, S2 without murmur, rub or gallop. ABDOMEN: Soft, nontender, nondistended, normoactive bowel sounds, no guarding, no rebound, no hepatosplenomegaly, no masses. EXTREMITIES: 2+ pulses, warm, well-perfused, no edema. NEUROLOGICAL: Cranial nerves II through XII grossly intact. Normal speech, gait not observed. PSYCH: Normal mood, normal affect. SKIN: Warm, dry, normal turgor, no rashes or lesions noted Laboratory Results - last 24 hr 05/01/19 05/01/19 05/02/19 16:58 21:25 06:24 WBC RBC Hgb Hct MCV MCH MCHC RDW Plt Count MPV Absolute Neuts (auto) Neutrophils % Neutrophils % (Manual) Lymphocytes % Lymphocytes % (Manual) Monocytes % (Manual) Eosinophils % (Manual) Basophils % (Manual) Platelet Estimate Sodium Potassium Chloride Carbon Dioxide Anion Gap BUN Creatinine Est GFR (CKD-EPI)AfAm Est GFR (CKD-EPI)NonAf POC Glucometer 134 119 120 Random Glucose Calcium Total Bilirubin AST ALT Alkaline Phosphatase Total Protein Albumin 05/02/19 05/02/19 06:30 06:30 WBC 11.8 H RBC 3.65 L Hgb 10.9 L Hct 33.3 L MCV 91.3 MCH 29.8 MCHC 32.6 RDW 14.2 Plt Count 177 MPV 9.4 Absolute Neuts (auto) 9.6 Neutrophils % No Result Required. Neutrophils % (Manual) 83.0 H Lymphocytes % No Result Required. Lymphocytes % (Manual) 8.0 Monocytes % (Manual) 7 Eosinophils % (Manual) 1.0 Basophils % (Manual) 1.0 Platelet Estimate Adequate Sodium 138 Potassium 3.7 Chloride 107 Carbon Dioxide 23 Anion Gap 8 BUN 22.0 H Creatinine 1.4 H Est GFR (CKD-EPI)AfAm 54.22 Est GFR (CKD-EPI)NonAf 46.79 POC Glucometer Random Glucose 122 H Calcium 8.3 L Total Bilirubin 1.0 AST 13 L ALT 14 Alkaline Phosphatase 53 Total Protein 5.7 L Albumin 2.4 L Active Medications Generic Name Dose Route Start Last Admin Trade Name Freq PRN Reason Stop Dose Admin Amlodipine Besylate 10 mg 04/30/19 10:00 05/02/19 09:17 Norvasc - PO 10 mg DAILY RUTH Administration Aspirin 81 mg 04/30/19 10:00 05/02/19 09:17 Ecotrin - PO 81 mg DAILY RUTH Administration Atorvastatin Calcium 80 mg 04/29/19 22:00 05/01/19 21:26 Lipitor - PO 80 mg HS RUTH Administration Donepezil HCl 5 mg 04/29/19 22:00 04/29/19 22:22 Aricept - PO 5 mg HS RUTH Administration Sodium Chloride 1,000 mls @ 75 mls/hr 04/30/19 15:07 05/01/19 15:00 Normal Saline - IV 75 mls/hr ASDIR RUTH Administration Insulin Aspart 1 vial 04/29/19 22:00 05/02/19 06:29 Novolog Vial Sliding Scale - SQ Not Given ACHS [facility] Protocol Memantine 10 mg 04/29/19 22:00 05/02/19 09:17 Namenda - PO 10 mg BID RUTH Administration Sertraline HCl 50 mg 04/30/19 12:15 05/02/19 09:17 Zoloft - PO 50 mg DAILY RUTH Administration Tamsulosin HCl 0.4 mg 05/01/19 08:30 05/02/19 09:17 Flomax - PO 0.4 mg DAILY@0830 RUTH Administration ASSESSMENT/PLAN: 83 year-old male with a PMH significant for HTN, HLD, CAD s/p 3vCABG, CVA 2016, Type II NIDDM, prostate cancer, and dementia. Admitted for partially obstructing ureter stone and HECTOR. Hospital course complicated this morning by altered mental status possibly due to opiod overdose. Partially obstructing ureter stone Left hydronephrosis --3mm left UVJ calculus with moderate hydro --started on empiric Levofloxacin, --WBC trending up --urine,blood cx no growth --IV fluids infusing --strain urine --strict I&Os --urology following Acute kidney injury --Cr 1.9 on admission, 1.4 today, 1.0 baseline --continue to trend --monitor bmp Hypertension --BP stable --continue amlodipine Hyperlipidemia --continue Lipitor Coronary artery disease s/p 3vCABG --continue ASA, statin CVA --continue ASA, statin Prostate cancer --stable Dementia --continue Namenda, Aricept Type II NIDDM --stop metformin --Novolog sliding scale coverage Metabolic encephalopathy --likely secondary to effects of opioids --narcan x 2 with improvement in mental status --CT head unremarkable FEN Fluids: NS@75mL/hr Electrolytes: replete as indicated Nutrition: low sodium DVT prophylaxis: SCDs, oob, ambulation; no chemical prophylaxis due to possible surgical intervention Physical therapy Visit type - Emergency Visit Emergency Visit: Yes ED Registration Date: 04/29/19 Care time: The patient presented to the Emergency Department on the above date and was hospitalized for further evaluation of their emergent condition. - New Patient This patient is new to me today: No - Critical Care Critical Care patient: No
[2019-05-02] MEDS: SODIUM CHLORIDE 1,000 ML IV SCH (15:00)
[2019-05-02] MEDS ORDERED: KETOROLAC TROMETHAMINE 30 MG/1 ML VIAL IVPUSH ONE (15:04)
[2019-05-02] MEDS: ATORVASTATIN CA 80 MG TABLET (FP) PO SCH (21:17)
[2019-05-03] MEDS: ACETAMINOPHEN 1000 MG/100 ML VIAL (NON FORMULARY) IVPB PRN (01:28)
[2019-05-03] MEDS: INSULIN SLIDING SCALE (NOVOLOG) 1 VIAL SQ SCH ×4 (06:54→21:35)
[2019-05-03] MEDS: TAMSULOSIN HCL 0.4 MG CAP PO SCH (08:20)
[2019-05-03 08:48] LABS: ALBUMIN 2.2 g/dl (3.4-5.0); BILIRUBIN,TOTAL 0.9 mg/dl (0.2-1); CALCIUM 8.3 mg/dl (8.5-10); CREATININE 1.3 mg/dl (0.55-1.3); MAGNESIUM 1.9 mg/dL (1.8-2.4); POTASSIUM 3.5 mmol/L (3.5-5.1); TOT PROT 5.4 g/dl (6.4-8.2)
[2019-05-03 08:49] LABS: BASO % 0.2 % (0-2.0); EOS % 1.3 % (0-4.5); HEMATOCRIT 32.1 % (35.4-49); HEMOGLOBIN 10.7 GM/dl (11.7-16.9); LYMPH % 8.7 % (8-40); MCH 30.2 pg (25.7-33.7); MCHC 33.4 g/dl (32.0-35.9); MEAN CELL VOLUME 90.2 fl (80-96); MEAN PLT VOLUME 8.8 fl (7.5-11.1); MONO % 9.5 % (3.8-10.2); NEUT % 80.3 % (42.8-82.8); PLATELET COUNT 176 K/MM3 (134-434); RBC 3.56 M/mm3 (4.00-5.60); RDW 14.1 % (11.9-15.9); WHITE BLOOD COUNT 10.1 K/mm3 (4.0-10.8)
--- NOTE | 2019-05-03 09:11 | PN ---
Progress Note, Physician Chief Complaint: flank/lower back pain History of Present Illness: 83 year old male with a significant PMH of CAD, HTN, CVA, hyperlipidemia, dementia, and chronic back pain who presents to the emergency department with left flank pain and hematuria x 2 days, associated with nausea. Pain described as sharp and stabbing, associated with some left groin pain; worse with movement. Pt was seen in the [place] ED on 04/27 with bilateral flank pain and 2 episodes of hematuria, a/w nausea. His symptoms improved, and he was dcd with urology followup. Pain worsened and he presented to ED - Current Medication List Current Medications: Active Medications Acetaminophen (Ofirmev Injection -) 1,000 mg IVPB Q6H PRN PRN Reason: PAIN LEVEL 6-10 Last Admin: 05/03/19 01:28 Dose: 1,000 mg Amlodipine Besylate (Norvasc -) 10 mg PO DAILY [facility] Last Admin: 05/02/19 09:17 Dose: 10 mg Aspirin (Ecotrin -) 81 mg PO DAILY [facility] Last Admin: 05/02/19 09:17 Dose: 81 mg Atorvastatin Calcium (Lipitor -) 80 mg PO HS [facility] Last Admin: 05/02/19 21:17 Dose: 80 mg Donepezil HCl (Aricept -) 5 mg PO HS [facility] Last Admin: 04/29/19 22:22 Dose: 5 mg Sodium Chloride (Normal Saline -) 1,000 mls @ 75 mls/hr IV ASDIR [facility] Last Admin: 05/02/19 15:00 Dose: 75 mls/hr Levofloxacin (Levaquin 500 Mg Premixed Ivpb -) 500 mg in 100 mls @ 100 mls/hr IVPB DAILY [facility]; Protocol Insulin Aspart (Novolog Vial Sliding Scale -) 1 vial SQ ACHS [facility]; Protocol Last Admin: 05/03/19 06:54 Dose: Not Given Memantine (Namenda -) 10 mg PO BID [facility] Last Admin: 05/02/19 21:17 Dose: 10 mg Potassium Chloride (K-Dur -) 40 meq PO ONCE ONE Stop: 05/03/19 09:16 Sertraline HCl (Zoloft -) 50 mg PO DAILY [facility] Last Admin: 05/02/19 09:17 Dose: 50 mg Tamsulosin HCl (Flomax -) 0.4 mg PO DAILY@0830 [facility] Last Admin: 05/03/19 08:20 Dose: 0.4 mg - Objective Vital Signs: Vital Signs Temperature 97.7 F 05/03/19 06:00 Pulse Rate 63 05/03/19 06:00 Respiratory Rate 18 05/03/19 06:00 Blood Pressure 146/48 L 05/03/19 06:00 O2 Sat by Pulse Oximetry (%) 94 L 05/03/19 06:00 Constitutional: Yes: Well Nourished, No Distress, Calm Eyes: Yes: WNL, Conjunctiva Clear, EOM Intact HENT: Yes: WNL, Atraumatic, Normocephalic Neck: Yes: WNL, Supple, Trachea Midline Cardiovascular: Yes: WNL, Regular Rate and Rhythm Respiratory: Yes: WNL, Regular, CTA Bilaterally Gastrointestinal: Yes: WNL, Normal Bowel Sounds, Soft ...Rectal Exam: Yes: Deferred Genitourinary: Yes: CVA Tenderness - Left, CVA Tenderness - Right Musculoskeletal: Yes: Back Pain Extremities: Yes: WNL Edema: No Peripheral Pulses WNL: Yes Integumentary: Yes: WNL (mild confusion to time) Neurological: Yes: Confusion ...Motor Strength: WNL Psychiatric: Yes: WNL, Alert (confused to time) Labs: CBC, BMP 05/03/19 07:09 05/03/19 07:09 - ....Imaging Cat Scan: Report Reviewed (Abd CT: 3mm patrially obstruction calculus to right with moderate hydronephrosis) Problem List - Problems (1) CVA (cerebrovascular accident) Assessment/Plan: old CVA, residual LE weakness Fall precautions in place c/w PT, assistive devices-walker Code(s): I63.9 - CEREBRAL INFARCTION, UNSPECIFIED (2) BPH (benign prostatic hyperplasia) Assessment/Plan: c/w flomax Code(s): N40.0 - BENIGN PROSTATIC HYPERPLASIA WITHOUT LOWER URINRY TRACT SYMP (3) S/P CABG x 3 Code(s): Z95.1 - PRESENCE OF AORTOCORONARY BYPASS GRAFT (4) Prostate CA Code(s): C61 - MALIGNANT NEOPLASM OF PROSTATE (5) Prophylactic measure Assessment/Plan: FEN c/w IVF @ 100cc/hr monitor electrolytes diabetic diet DVT heparin sq Dispo maintain as in patient full code discharge planning Code(s): Z29.9 - ENCOUNTER FOR PROPHYLACTIC MEASURES, UNSPECIFIED (6) HECTOR (acute kidney injury) Assessment/Plan: c/w IV hydration monitor Cr, trending down, baseline 1.0 if creatinine continue to rise consider renal consult in am avoid nephrotoxic agents Code(s): N17.9 - ACUTE KIDNEY FAILURE, UNSPECIFIED (7) Ureteral stone with hydronephrosis Assessment/Plan: appreciate consultatiom c/w IV hydration c/w levaquin daily EKG while leaquin, combo with aricept can prolong QT interval strict I/Os, straining all urime Tylenol for mild to moderate pain,, no narcotics monitor temp and Wbc UA negative, Ucx NGTD Code(s): N13.2 - HYDRONEPHROSIS WITH RENAL AND URETERAL CALCULOUS OBSTRUCTION (8) CAD (coronary atherosclerotic disease) Assessment/Plan: low fat/cholesterol diet c/w asa Code(s): I25.10 - ATHSCL HEART DISEASE OF [place] CORONARY ARTERY W/O ANG PCTRS Qualifiers: Coronary Disease-Associated Artery/Lesion type: [place] artery [place] vs. transplanted heart: [place] heart Associated angina: angina presence unspecified Qualified Code(s): I25.10 - Atherosclerotic heart disease of [place] coronary artery without angina pectoris (9) Dementia Assessment/Plan: c/w home doses of namenda frequent re-orientation Code(s): F03.90 - UNSPECIFIED DEMENTIA WITHOUT BEHAVIORAL DISTURBANCE (10) HLD (hyperlipidemia) Assessment/Plan: c/w atorvastatin low fat/cholesterol diet Code(s): E78.5 - HYPERLIPIDEMIA, UNSPECIFIED Qualifiers: Hyperlipidemia type: other hyperlipidemia Qualified Code(s): E78.49 - Other hyperlipidemia; E78.4 - Other hyperlipidemia (11) Hypertension Assessment/Plan: c/w amlodopine with hold parameters Code(s): I10 - ESSENTIAL (PRIMARY) HYPERTENSION Qualifiers: Hypertension type: essential hypertension Qualified Code(s): I10 - Essential (primary) hypertension (12) Diabetes Assessment/Plan: continue to hold metformin BGM ac/HS with novolog sliding scale diabetic diet Code(s): E11.9 - TYPE 2 DIABETES MELLITUS WITHOUT COMPLICATIONS Visit type - Emergency Visit Emergency Visit: Yes ED Registration Date: 04/29/19 Care time: The patient presented to the Emergency Department on the above date and was hospitalized for further evaluation of their emergent condition. - New Patient This patient is new to me today: No - Critical Care Critical Care patient: No - Discharge Referral Referred to [facility] No
[2019-05-03] MEDS ORDERED: POTASSIUM CHLORIDE TABS 20 MEQ TABLET.ER (FP) PO ONE (09:15)
[2019-05-03] MEDS: MEMANTINE HCL 10 MG TABLET (FP) PO SCH ×2 (09:35→21:31)
[2019-05-03] MEDS: ASPIRIN COATED 81 MG TABLET.EC PO SCH (09:35)
[2019-05-03] MEDS: amLODIPine BESYLATE 10 MG TABLET (FP) PO SCH (09:35)
[2019-05-03] MEDS: SERTRALINE HCL 50 MG TABLET (FP) PO SCH (09:35)
[2019-05-03] MEDS: SODIUM CHLORIDE 1,000 ML IV SCH (16:44)
[2019-05-03] MEDS: ATORVASTATIN CA 80 MG TABLET (FP) PO SCH (21:31)
[2019-05-04] MEDS: INSULIN SLIDING SCALE (NOVOLOG) 1 VIAL SQ SCH ×3 (07:11→16:09)
[2019-05-04] MEDS: TAMSULOSIN HCL 0.4 MG CAP PO SCH (08:16)
[2019-05-04 08:49] LABS: BASO % 0.2 % (0-2.0); EOS % 0.9 % (0-4.5); HEMATOCRIT 34.5 % (35.4-49); HEMOGLOBIN 11.4 GM/dl (11.7-16.9); LYMPH % 9.6 % (8-40); MCH 29.9 pg (25.7-33.7); MCHC 33.1 g/dl (32.0-35.9); MEAN CELL VOLUME 90.2 fl (80-96); MEAN PLT VOLUME 9.1 fl (7.5-11.1); MONO % 7.8 % (3.8-10.2); NEUT % 81.5 % (42.8-82.8); PLATELET COUNT 255 K/MM3 (134-434); RBC 3.83 M/mm3 (4.00-5.60); RDW 14.3 % (11.9-15.9); WHITE BLOOD COUNT 11.2 K/mm3 (4.0-10.8)
[2019-05-04 09:07] LABS: ALBUMIN 2.6 g/dl (3.4-5.0); BILIRUBIN,TOTAL 0.6 mg/dl (0.2-1); CALCIUM 8.3 mg/dl (8.5-10); CREATININE 1.3 mg/dl (0.55-1.3); MAGNESIUM 1.9 mg/dL (1.8-2.4); POTASSIUM 3.4 mmol/L (3.5-5.1); TOT PROT 6.1 g/dl (6.4-8.2)
[2019-05-04 10:28] VITALS: PULSE 74
[2019-05-04] MEDS: SERTRALINE HCL 50 MG TABLET (FP) PO SCH (10:28)
[2019-05-04] MEDS: amLODIPine BESYLATE 10 MG TABLET (FP) PO SCH (10:28)
[2019-05-04] MEDS: MEMANTINE HCL 10 MG TABLET (FP) PO SCH (10:28)
[2019-05-04] MEDS: ASPIRIN COATED 81 MG TABLET.EC PO SCH (10:28)
[2019-05-04] MEDS: ACETAMINOPHEN 1000 MG/100 ML VIAL (NON FORMULARY) IVPB PRN (10:29)
[2019-05-04] MEDS ORDERED: POTASSIUM CHLORIDE ORAL LIQUID 20 MEQ/15 ML PO ONE ×2 (12:00→16:00)
--- NOTE | 2019-05-04 13:29 | EKG ---
Test Reason : Blood Pressure : / mmHG Vent. Rate : 069 BPM Atrial Rate : 069 BPM P-R Int : 124 ms QRS Dur : 088 ms QT Int : 442 ms P-R-T Axes : 050 026 053 degrees QTc Int : 473 ms SINUS RHYTHM WITH FREQUENT PREMATURE VENTRICULAR COMPLEXES CANNOT RULE OUT INFERIOR INFARCT , AGE UNDETERMINED ABNORMAL ECG WHEN COMPARED WITH ECG OF 30-APR-2019 11:52, NO SIGNIFICANT CHANGE WAS FOUND Confirmed by MD ROXI, KRISSY ([id number]) on 05/04/2019 1:29:03 PM Referred By: VANI HANNA Confirmed By:KRISSY DIANE MD
--- NOTE | 2019-05-04 14:51 | DS ---
Physical Examination Vital Signs: Vital Signs Temperature 98.0 F 05/04/19 10:19 Pulse Rate 74 05/04/19 10:19 Respiratory Rate 19 05/04/19 10:19 Blood Pressure 148/65 05/04/19 10:19 O2 Sat by Pulse Oximetry (%) 96 05/04/19 10:19 Constitutional: Yes: No Distress, Calm, Anxious (mild) Eyes: Yes: Conjunctiva Clear, PERRL HENT: Yes: Atraumatic, Normocephalic Neck: Yes: Supple, Trachea Midline Cardiovascular: Yes: Regular Rate and Rhythm Respiratory: Yes: Regular, CTA Bilaterally, Diminished (at the bases) Gastrointestinal: Yes: Normal Bowel Sounds, Soft ...Rectal Exam: Yes: Deferred Renal/: Yes: WNL Musculoskeletal: Yes: Joint Stiffness, Muscle Weakness Extremities: Yes: WNL Edema: No Peripheral Pulses WNL: Yes Peripheral Pulses: Left Radial: 2+, Right Radial: 2+ Integumentary: Yes: WNL Neurological: Yes: Alert, Confusion, Unsteady Gait, Weakness Psychiatric: Yes: Agitated (at times) Labs: CBC, BMP 05/04/19 07:13 05/04/19 07:13 Discharge Summary Reason For Visit: HYDRONEPHROSIS WITH URIN OBSTRUCTION DUE TO URETER Current Active Problems HECTOR (acute kidney injury) (Acute) BPH (benign prostatic hyperplasia) (Acute) CVA (cerebrovascular accident) (Acute) Diabetes (Acute) Prophylactic measure (Acute) Prostate CA (Acute) S/P CABG x 3 (Acute) Ureteral stone with hydronephrosis (Acute) Procedures: Principal: CT/SPIRAL- RENAL-STONE CT. IMPRESSION: Left nonobstructing nephrolithiasis with a proximal ureter stone measuring 5 cm as discussed above. There is perinephric stranding. No other stones are seen. Gallstones with no CT evidence to suggest acute cholecystitis, seen previously. Additional comments noted above. Reported By: Wai Ray MD. . US/SCROTUM AND CONTENTS US. IMPRESSION: 1. Small bilateral varicoceles. 2. No evidence of torsion or acute testicular pathology. Reported By: Kurtis Grant MD. . CXR 04/29/2019. IMPRESSION: No acute disease. . Head CT 04/29/2019. IMPRESSION: No evidence of acute intracranial pathology. Reported By: Kurtis Grant MD 04/30/[address]/CHEST CT WITHOUT CONTRAST. IMPRESSION: 1. Small bilateral pleural effusions, left greater than right, with mild bibasilar atelectasis. 2. Otherwise no acute pathology within the chest. 3. 3 mm left UVJ calculus with moderate hydronephrosis. 4. No additional evidence of acute pathology within the abdomen or pelvis. Please see above discussion. Reported By: Kurtis Grant MD 04/[address]/ABDOMEN PELVIS CT W/O CONTR. IMPRESSION: 1. Small bilateral pleural effusions, left greater than right, with mild bibasilar atelectasis. 2. Otherwise no acute pathology within the chest. 3. 3 mm left UVJ calculus with moderate hydronephrosis. 4. No additional evidence of acute pathology within the abdomen or pelvis. Please see above discussion. Reported By: Kurtis Grant MD 04/30/19 1318. Other Procedures: Renal sono 05/04/2019. IMPRESSION: Moderate left-sided hydronephrosis that has not significantly changed since a CT scan dated 2018. Please see above discussion. Reported By: Kurtis Grant MD 05/04/19 [id number] Hospital Course: 83 year old male with a significant PMH of CAD (s/p CABG x3 about 20 years ago) , HTN, CVA, hyperlipidemia, dementia, and chronic back pain who presents to the emergency department with left flank pain and hematuria x 2 days, associated with nausea. Pain described as sharp and stabbing, associated with some left groin pain; worse with movement. Pt was seen yesterday in the [place] ED with bilateral flank pain and 2 episodes of hematuria, a/w nausea. His symptoms improved, and he was dcd with urology followup. However last night he continued to have flank pain, worse on the left. Pt was admitted and hydrated IVF and closely monitored. His renal function improved and his flank pain resolved. Repeat sono on the day of discharge displayed no change in his moderate left hydronephrosis. As discussed with covering Urologist, Dr. Rangel, pt will be discharged and follow up with Dr. Roy for further management Condition: Guarded - Instructions Diet, Activity, Other Instructions: Follow up appointment with Dr. Roy on May 06 @ 11:30am Address: [address] [place] [address] Referrals: Jimmy Roy MD., [Staff Physician] - Disposition: HOME - Home Medications Comprehensive Discharge Medication List: Ambulatory Orders Amlodipine Besylate 10 mg PO DAILY 04/29/19 Aspirin [Aspirin EC] 81 mg PO DAILY 04/29/19 Atorvastatin Ca [Lipitor] 80 mg PO HS 04/29/19 Donepezil HCl 1 tab PO HS 04/29/19 Memantine HCl 10 mg PO BID 04/29/19 Metformin HCl [Glucophage] 500 mg PO DAILY 04/29/19 Sertraline HCl 50 mg PO TID 04/29/19 Vitamin B Complex [B Complex] 1 each PO DAILY 04/29/19 Tamsulosin HCl [Flomax -] 0.4 mg PO DAILY@0830 30 Days #30 cap.er.24h 05/04/19 levoFLOXacin [Levaquin] 500 mg PO DAILY 2 Days #2 tab 05/04/19 This patient is new to me today: Yes Date on this admission: 05/04/19 Emergency Visit: Yes ED Registration Date: 04/29/19 Care time: The patient presented to the Emergency Department on the above date and was hospitalized for further evaluation of their emergent condition. Critical Care patient: No - Discharge Referral Referred to [facility] No
[2019-05-04] MEDS: SODIUM CHLORIDE 1,000 ML IV SCH (15:09)
[2019-05-04 15:56] VITALS: BP 140/61; TEMP 98.5
== END 2019-05-04 16:08 | disposition home or self-care (01) | DRG 693 ==
LOC: FER 14:42 → FM/S 18:02
PROVIDERS: ADMIT Internal Medicine; ATTEND Nurse Practitioner Family
DX: N13.2 Hydronephrosis with renal and ureteral calculous obstruction (principal); G92 Toxic encephalopathy; I69.359 Hemiplegia and hemiparesis following cerebral infarction affecting unspecified side; I25.10 Atherosclerotic heart disease of native coronary artery without angina pectoris; T40.0X1A Poisoning by opium, accidental (unintentional), initial encounter; N17.9 Acute kidney failure, unspecified; Z95.1 Presence of aortocoronary bypass graft; I10 Essential (primary) hypertension; E78.5 Hyperlipidemia, unspecified; F03.90 Unspecified dementia, unspecified severity, without behavioral disturbance, psychotic disturbance, mood disturbance, and anxiety; Z88.0 Allergy status to penicillin; Z79.84 Long term (current) use of oral hypoglycemic drugs; N40.0 Benign prostatic hyperplasia without lower urinary tract symptoms; C61 Malignant neoplasm of prostate; Y92.230 Patient room in hospital as the place of occurrence of the external cause
CPT/HCPCS: 36415; 70450-TC; 71045-TC-FY; 71250-TC; 74176-TC; 76775-TC; 76870-TC; 80053; 81003; 81015; 82962; 83605; 83735; 84100; 85025; 85027; 87040; 87086; 93005; 97116-GP; 97162-GP; 99283-25; 99284-25; J0131; J7030

== ENCOUNTER 2019-05-05 11:41 | Inpatient (IN) | payer OTHER, MEDICARE ==
[2019-05-05 11:53] VITALS: BMI 26.6
[2019-05-05 13:25] LABS: BASO % 0.2 % (0-2.0); EOS % 1.3 % (0-4.5); HEMATOCRIT 30.5 % (35.4-49); HEMOGLOBIN 10.5 GM/dl (11.7-16.9); LYMPH % 9.9 % (8-40); MCH 30.4 pg (25.7-33.7); MCHC 34.3 g/dl (32.0-35.9); MEAN CELL VOLUME 88.5 fl (80-96); MEAN PLT VOLUME 8.8 fl (7.5-11.1); MONO % 11.4 % (3.8-10.2); NEUT % 77.2 % (42.8-82.8); PLATELET COUNT 241 K/MM3 (134-434); RBC 3.45 M/mm3 (4.00-5.60); RDW 14.2 % (11.9-15.9); WHITE BLOOD COUNT 10.4 K/mm3 (4.0-10.8)
[2019-05-05 13:28] LABS: ALBUMIN 2.4 g/dl (3.4-5.0); BILIRUBIN,TOTAL 0.4 mg/dl (0.2-1); CALCIUM 8.4 mg/dl (8.5-10); CREATININE 1.4 mg/dl (0.55-1.3); POTASSIUM 3.5 mmol/L (3.5-5.1); TOT PROT 5.7 g/dl (6.4-8.2)
[2019-05-05 14:21] LABS: EPITHELIAL CELLS FEW /hpf
--- NOTE | 2019-05-05 14:33 | PDOC ---
History of Present Illness - General Chief Complaint: Pain, Acute Stated Complaint: PAIN, FALL Time Seen by Provider: 05/05/19 12:13 History Source: Patient, Family (83 y/o male brought in by ambulance because of near fall in slow motion complaining of worsening of his back pain for which he was recently discharged from [facility] , non obstructing kidney stone, dementia i) Exam Limitations: Clinical Condition, Dementia - History of Present Illness Timing/Duration: unsure, getting worse Severity: moderate, severe Associated Symptoms: reports: weakness Past History - Travel Traveled outside of the country in the last 30 days: No Close contact w/someone who was outside of country & ill: No - Past Medical History Allergies/Adverse Reactions: Allergies Allergy/AdvReac Type Severity Reaction Status Date / Time Penicillins Allergy Unknown Swelling Verified 05/05/19 11:46 Home Medications: Ambulatory Orders Amlodipine Besylate 10 mg PO DAILY 04/29/19 Aspirin [Aspirin EC] 81 mg PO DAILY 04/29/19 Atorvastatin Ca [Lipitor] 80 mg PO HS 04/29/19 Donepezil HCl 1 tab PO HS 04/29/19 Memantine HCl 10 mg PO BID 04/29/19 Metformin HCl [Glucophage] 500 mg PO DAILY 04/29/19 Sertraline HCl 50 mg PO TID 04/29/19 Vitamin B Complex [B Complex] 1 each PO DAILY 04/29/19 Tamsulosin HCl [Flomax -] 0.4 mg PO DAILY@0830 30 Days #30 cap.er.24h 05/04/19 levoFLOXacin [Levaquin] 500 mg PO DAILY 2 Days #2 tab 05/04/19 Anemia: No Asthma: Yes Cancer: Yes (PROSTATE) Cardiac Disorders: Yes (CABG x 3, CAD) CVA: Yes COPD: No CHF: No Dementia: Yes Diabetes: Yes GI Disorders: No Disorders: No HTN: Yes Hypercholesterolemia: Yes Liver Disease: No Psychiatric Problems: Yes (DEPRESSION) Seizures: No Thyroid Disease: No - Surgical History Abdominal Surgery: No Appendectomy: No Cardiac Surgery: (TRIPLE BYPASS) Cholecystectomy: No Lung Surgery: No Neurologic Surgery: No Orthopedic Surgery: No - Immunization History Td Vaccination: Yes TDAP Vaccination: No Immunization Up to Date: (UNSURE) - Suicide/Smoking/Psychosocial Hx Smoking Status: Yes Smoking History: Former smoker Have you smoked in the past 12 months: No Number of Cigarettes Smoked Daily: 0 If you are a former smoker, when did you quit?: 5yrs Information on smoking cessation initiated: No 'Breaking Loose' booklet given: 06/22/15 Hx Alcohol Use: No Drug/Substance Use Hx: No Substance Use Type: None Hx Substance Use Treatment: No Review of Systems - Review of Systems Able to Perform ROS?: No (poor interaction, ) Comments:: Informations provided by mainly 05/05/19 15:35 Is the patient limited German proficient: Yes Constitutional: Yes: Malaise, Weakness HEENTM: No: Symptoms Reported, See HPI, Eye Pain, Blurred Vision, Tearing, Recent change in vision, Double Vision, Cataracts, Ear Pain, Ocular Prothesis, Ear Discharge, Nose Pain, Nose Congestion, Tinnitus, Nose Bleeding, Hearing Loss , Throat Pain, Throat Swelling, Mouth Pain, Dental Problems, Difficulty Swallowing, Mouth Swelling, Other Respiratory: No: Symptoms reported, See HPI, Cough, Orthopnea, Shortness of Breath, SOB with Exertion, SOB at Rest, Stridor, Wheezing, Productive cough, Hemoptysis, Other Cardiac (ROS): No: Symptoms Reported, See HPI, Chest Pain, Edema, Irregular Heart Rate, Lightheadedness, Palpitations, Syncope, Chest Tightness, Other ABD/GI: No: Symptoms Reported, See HPI, Abdominal Distended, Abd. Pain w/ defecation, Blood Streaked Bowels, Constipated, Diarrhea, Difficulty Swallowing , Nausea, Poor Appetite, Poor Fluid Intake, Rectal Bleeding, Vomiting, Indigestion, Abdominal cramping, Tarry Stools, Other Musculoskeletal: Yes: Symptoms Reported, Muscle Pain, Other (right shoulder pain ) Integumentary: No: Symptoms Reported, See HPI, Bruising, Change in Color, Change in Hair/Nails, Dryness, Erythema, Flushing, Lesions, Lumps, Pallor, Pruritus, Rash, Sweating, Other Neurological: Yes: Pre-Existing Deficit, Weakness Psychiatric: Yes: Anxiety, Other (dementia) All Other Systems: Reviewed and Negative *Physical Exam - Vital Signs Last Vital Signs Temp Pulse Resp BP Pulse Ox 98.2 F 65 19 130/50 L 96 05/05/19 11:42 05/05/19 11:42 05/05/19 11:42 05/05/19 11:42 05/05/19 11:42 - Physical Exam General Appearance: Yes: Nourished, Appropriately Dressed, Moderate Distress HEENT: positive: DANDRE Neck: positive: Supple, Decreased range of motion Respiratory/Chest: positive: Lungs Clear, Normal Breath Sounds Cardiovascular: positive: S1, S2, Other (regular with ectopic beats) Gastrointestinal/Abdominal: positive: Normal Bowel Sounds, Flat, Soft. negative : Organomegaly Male Genitalia: positive: other (CVVA tenderness at percution) Musculoskeletal: positive: Decreased Range of Motion, Muscle Spasm Extremity: positive: Normal Capillary Refill, Normal Inspection. negative: Normal Range of Motion Integumentary: positive: Normal Color Neurologic: negative: Fully Oriented ED Treatment Course - LABORATORY CBC & Chemistry Diagram: 05/05/19 12:56 05/05/19 12:56 - ADDITIONAL ORDERS Additional order review: Laboratory Results 05/05/19 05/05/19 13:43 12:56 Sodium 138 Potassium 3.5 Chloride 108 H Carbon Dioxide 26 Anion Gap 4 L BUN 28.0 H Creatinine 1.4 H Est GFR (CKD-EPI)AfAm 54.22 Est GFR (CKD-EPI)NonAf 46.79 Random Glucose 147 H Calcium 8.4 L Total Bilirubin 0.4 AST 30 ALT 34 Alkaline Phosphatase 49 Total Protein 5.7 L Albumin 2.4 L Urine Color Yellow Urine Appearance Clear Urine pH 5.5 Urine Protein Trace Urine Glucose (UA) Trace Urine Ketones Negative Urine Blood Trace-intact Urine Nitrite Negative Urine Bilirubin Negative Urine Urobilinogen 0.2 Ur Leukocyte Esterase Negative Urine RBC 0-2 Urine WBC None seen Ur Transition Epith Cell Few Urine Bacteria Rare 05/05/19 12:56 RBC 3.45 L MCV 88.5 MCHC 34.3 RDW 14.2 MPV 8.8 Neutrophils % 77.2 Lymphocytes % 9.9 Monocytes % 11.4 H Eosinophils % 1.3 Basophils % 0.2 - RADIOLOGY Radiology Studies Ordered: Category Date Time Status ABDOMEN & PELVIS CT W/O CONTR [CT] Stat CT Scan 05/05/19 13:15 Completed *DC/Admit/Observation/Transfer Diagnosis at time of Disposition: Urinary tract obstruction due to kidney stone - Discharge Dispostion Condition at time of disposition: Guarded Decision to Admit order: Yes - Referrals Referrals: Brendan Brantley MD [Primary Care Provider] - - Patient Instructions - Post Discharge Activity
[2019-05-05] MEDS ORDERED: ACETAMINOPHEN 325 MG TABLET (FP) PO PRN (14:46)
--- NOTE | 2019-05-05 14:46 | HP ---
Admitting History and Physical - Primary Care Physician PCP: Brendan Brantley - Admission Chief Complaint: back pain, s/p fall from chair History of Present Illness: 83 year old male with a significant PMH of CAD (s/p CABG x3 about 20 years ago) , HTN, CVA, hyperlipidemia, dementia, and chronic back pain who presents to the emergency department with c/o lower back pain and slipping from sofa @ 2:30pm without being able to get up from floor. His called neighbors who assisted the patient up from the floor, after which she proceeded to activate EMS. Pt was transported back to ED for further management. Of note, Pt was discharged from [facility] less than 24hrs ago after being treated for left flank pain r/t non-obstructing renal stones associated with moderate hydronephrosis. he was hydrated with IVF and closely monitored. His renal function improved and his flank pain resolved. Repeat sono on the day of discharge displayed no change in his moderate left hydronephrosis. As discussed with covering Urologist, Dr. Rangel, pt discharged with outpt follow up with Dr. Roy within 48hrs. In ED: vitals were: BP 130/50, HR 65, T 98.2, RR 19, O2 sat 96% CT scan revealed migration of left mid ureteral calculus to the UVJ with increasing obstruction since 04/29/2019. 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 No: Renal Calculi Psych: Yes: Anxiety, Depression Musculoskeletal: Yes: Osteoarthritis Endocrine: Yes: Diabetes Mellitus - Past Surgical History Past Surgical History: Yes: Arthrosocopy (b/l knees), CABG (x 3), Prostatectomy - Advance Directives Advance Directives: Yes: Health Care Proxy (Consuelo Cheryl) - Smoking History Smoking history: Former smoker Have you smoked in the past 12 months: No Aproximately how many cigarettes per day: 0 If you are a former smoker, when did you quit?: 5yrs - Alcohol/Substance Use Hx Alcohol Use: No History of Substance Use: reports: None - Social History Usual Living Arrangement: Yes: With Spouse ADL: Family Assistance Occupation: retired History of Recent Travel: No Home Medications - Allergies Allergies/Adverse Reactions: Allergies Allergy/AdvReac Type Severity Reaction Status Date / Time Penicillins Allergy Unknown Swelling Verified 05/05/19 11:46 - Home Medications Home Medications: Ambulatory Orders Amlodipine Besylate 10 mg PO DAILY 04/29/19 Aspirin [Aspirin EC] 81 mg PO DAILY 04/29/19 Atorvastatin Ca [Lipitor] 80 mg PO HS 04/29/19 Donepezil HCl 1 tab PO HS 04/29/19 Memantine HCl 10 mg PO BID 04/29/19 Metformin HCl [Glucophage] 500 mg PO DAILY 04/29/19 Sertraline HCl 50 mg PO TID 04/29/19 Vitamin B Complex [B Complex] 1 each PO DAILY 04/29/19 Tamsulosin HCl [Flomax -] 0.4 mg PO DAILY@829 30 Days #30 cap.er.24h 05/04/19 levoFLOXacin [Levaquin] 500 mg PO DAILY 2 Days #2 tab 05/04/19 Family Disease History - Family Disease History Family History: Unable to Obtain (pt is forgetful) Review of Systems - Review of Systems Constitutional: reports: No Symptoms Eyes: reports: No Symptoms HENT: reports: No Symptoms Neck: reports: No Symptoms Cardiovascular: reports: No Symptoms Respiratory: reports: No Symptoms Gastrointestinal: reports: No Symptoms Genitourinary: reports: Flank Pain Breasts: reports: No Symptoms Reported Musculoskeletal: reports: Back Pain, Joint Pain, Muscle Weakness Integumentary: reports: No Symptoms Neurological: reports: Confusion, Unsteady Gait, Weakness Endocrine: reports: No Symptoms Hematology/Lymphatic: reports: No Symptoms Psychiatric: reports: Altered Sleep Pattern, Anxiety, Depression Physical Examination Vital Signs: Vital Signs Temperature 98.2 F 05/05/19 11:42 Pulse Rate 65 05/05/19 11:42 Respiratory Rate 05/05/19 11:42 Blood Pressure 130/50 L 05/05/19 11:42 O2 Sat by Pulse Oximetry (%) 96 05/05/19 11:42 Constitutional: Yes: Well Nourished Eyes: Yes: Conjunctiva Clear HENT: Yes: Atraumatic, Normocephalic Neck: Yes: Supple, Trachea Midline Cardiovascular: Yes: Regular Rate and Rhythm Respiratory: Yes: Regular, CTA Bilaterally Gastrointestinal: Yes: Normal Bowel Sounds, Soft, Abdomen, Obese ...Rectal Exam: Yes: Deferred Musculoskeletal: Yes: WNL Extremities: Yes: WNL Edema: No Peripheral Pulses WNL: Yes Peripheral Pulses: Left Radial: 2+, Right Radial: 2+, Left Doralis Pedis: 2+, Right Dorsalis Pedis: 2+ Integumentary: Yes: WNL Neurological: Yes: Alert, Oriented ...Motor Strength: WNL Psychiatric: Yes: Alert, Agitated Labs: CBC, BMP 05/05/19 12:56 05/05/19 12:56 Imaging - Results Cat Scan: Report Reviewed ( CT abd/pelvis 05/05/2019 IMPRESSION: Migration of left mid ureteral calculus to the UVJ with increasing obstruction since 2018. Please see above discussion. Reported By: Kurtis Grant MD 05/05/19 0196) Problem List - Problems (1) Urinary tract obstruction due to kidney stone Assessment/Plan: Urology reconsulted intensify pain regimen: APAP PRN moderate pain, oxycodone severe pain monitor urine outpt attempt to collect stone for analysis gentle fluid hydration Code(s): N20.0 - CALCULUS OF KIDNEY; N13.8 - OTHER OBSTRUCTIVE AND REFLUX UROPATHY (2) BPH (benign prostatic hyperplasia) Assessment/Plan: continue flomax Code(s): N40.0 - BENIGN PROSTATIC HYPERPLASIA WITHOUT LOWER URINRY TRACT SYMP (3) CAD (coronary atherosclerotic disease) Assessment/Plan: continue ASA and statin cardiac diabetic diet Code(s): I25.10 - ATHSCL HEART DISEASE OF [place] CORONARY ARTERY W/O ANG PCTRS Qualifiers: Coronary Disease-Associated Artery/Lesion type: [place] artery [place] vs. transplanted heart: [place] heart Associated angina: angina presence unspecified Qualified Code(s): I25.10 - Atherosclerotic heart disease of [place] coronary artery without angina pectoris (4) Constipation Assessment/Plan: bowel regimen with senna/colace Code(s): K59.00 - CONSTIPATION, UNSPECIFIED Qualifiers: Constipation type: other constipation type Qualified Code(s): K59.09 - Other constipation (5) DVT prophylaxis Assessment/Plan: TEDs SC heparin OOB to chair Code(s): MMD9354 - (6) Dementia Assessment/Plan: c/w home doses of namenda frequent re-orientation Code(s): F03.90 - UNSPECIFIED DEMENTIA WITHOUT BEHAVIORAL DISTURBANCE (7) Diabetes Assessment/Plan: hold metformin BGM ac/HS with novolog sliding scale diabetic diet Code(s): E11.9 - TYPE 2 DIABETES MELLITUS WITHOUT COMPLICATIONS (8) HLD (hyperlipidemia) Assessment/Plan: statin therapy Code(s): E78.5 - HYPERLIPIDEMIA, UNSPECIFIED Qualifiers: Hyperlipidemia type: other hyperlipidemia Qualified Code(s): E78.49 - Other hyperlipidemia; E78.4 - Other hyperlipidemia (9) Prophylactic measure Assessment/Plan: fall precautions Code(s): Z29.9 - ENCOUNTER FOR PROPHYLACTIC MEASURES, UNSPECIFIED (10) Depression Assessment/Plan: continue zoloft BID (home dose TID) Code(s): F32.9 - MAJOR DEPRESSIVE DISORDER, SINGLE EPISODE, UNSPECIFIED Qualifiers: Depression Type: unspecified Qualified Code(s): F32.9 - Major depressive disorder, single episode, unspecified (11) Hypertension Assessment/Plan: c/w amlodopine with hold parameters Code(s): I10 - ESSENTIAL (PRIMARY) HYPERTENSION Qualifiers: Hypertension type: essential hypertension Qualified Code(s): I10 - Essential (primary) hypertension (12) Unsteady gait Assessment/Plan: PT evaluation pt will most likely need subacute rehab at time of d/c ambulate as tolerated with rolling walker Code(s): R26.81 - UNSTEADINESS ON FEET Assessment/Plan DISPO: consider rehab Code status: Full code Visit type - Emergency Visit Emergency Visit: Yes ED Registration Date: 05/05/19 Care time: The patient presented to the Emergency Department on the above date and was hospitalized for further evaluation of their emergent condition. - New Patient This patient is new to me today: No - Critical Care Critical Care patient: No
[2019-05-05] MEDS ORDERED: SODIUM CHLORIDE 1,000 ML IV SCH (15:00)
[2019-05-05] MEDS ORDERED: ONDANSETRON 4 MG/2 ML VIAL IVPUSH PRN (15:00)
[2019-05-05] MEDS ORDERED: POTASSIUM CHLORIDE ORAL LIQUID 20 MEQ/15 ML PO ONE (15:33)
[2019-05-05] MEDS: INSULIN SLIDING SCALE (NOVOLOG) 1 VIAL SQ SCH ×2 (16:08→21:59)
[2019-05-05] MEDS: HEPARIN NA (PORCINE) 5,000 UNITS/ML 1ML VIAL SQ SCH (17:49)
[2019-05-05] MEDS: DOCUSATE SODIUM 100 MG CAPSULE (FP) PO SCH (21:59)
[2019-05-05] MEDS: MEMANTINE HCL 10 MG TABLET (FP) PO SCH (21:59)
[2019-05-05] MEDS: ATORVASTATIN CA 80 MG TABLET (FP) PO SCH (21:59)
[2019-05-05] MEDS: SENNOSIDES 8.6MG TABLET (FP) PO SCH (22:00)
[2019-05-05] MEDS: SERTRALINE HCL 50 MG TABLET (FP) PO SCH (22:00)
[2019-05-06] MEDS: HEPARIN NA (PORCINE) 5,000 UNITS/ML 1ML VIAL SQ SCH ×2 (02:16→09:11)
[2019-05-06 07:32] LABS: BASO % 0.3 % (0-2.0); EOS % 2.2 % (0-4.5); HEMATOCRIT 30.8 % (35.4-49); HEMOGLOBIN 10.3 GM/dl (11.7-16.9); LYMPH % 10.6 % (8-40); MCH 30.3 pg (25.7-33.7); MCHC 33.6 g/dl (32.0-35.9); MEAN CELL VOLUME 90.3 fl (80-96); MEAN PLT VOLUME 8.2 fl (7.5-11.1); NEUT % 75.9 % (42.8-82.8); PLATELET COUNT 240 K/MM3 (134-434); RBC 3.41 M/mm3 (4.00-5.60); RDW 14.4 % (11.9-15.9); WHITE BLOOD COUNT 8.6 K/mm3 (4.0-10.8)
[2019-05-06 07:36] LABS: INR 1.36 (0.82-1.09); PROTHROMBIN TIME (PATIENT) 15.1 SEC (10.2-13.0)
[2019-05-06 07:41] LABS: ALBUMIN 2.2 g/dl (3.4-5.0); BILIRUBIN,TOTAL 0.5 mg/dl (0.2-1); CALCIUM 8.2 mg/dl (8.5-10); CREATININE 1.3 mg/dl (0.55-1.3); MAGNESIUM 1.8 mg/dL (1.8-2.4); PHOSPHOROUS 3.2 mg/dl (2.5-4.9); POTASSIUM 3.7 mmol/L (3.5-5.1); TOT PROT 5.5 g/dl (6.4-8.2)
[2019-05-06] MEDS: TAMSULOSIN HCL 0.4 MG CAP PO SCH (09:11)
[2019-05-06] MEDS: DOCUSATE SODIUM 100 MG CAPSULE (FP) PO SCH ×2 (09:11→21:48)
[2019-05-06] MEDS: VITAMIN B COMPLEX W/C COMBO TABLET (FP) PO SCH (09:12)
[2019-05-06] MEDS: amLODIPine BESYLATE 10 MG TABLET (FP) PO SCH (09:12)
[2019-05-06] MEDS: SERTRALINE HCL 50 MG TABLET (FP) PO SCH ×2 (09:12→21:48)
[2019-05-06] MEDS: MEMANTINE HCL 10 MG TABLET (FP) PO SCH ×2 (09:12→21:48)
[2019-05-06] MEDS ORDERED: ASPIRIN COATED 81 MG TABLET.EC PO SCH (10:00)
--- NOTE | 2019-05-06 12:27 | PN ---
Progress Note (short form) - Note Progress Note: patient has been readmitted with stone which has migated to the UVJ still with hydro Patient needs to be transferred to [facility] for possible ureteral stent placement
--- NOTE | 2019-05-06 13:54 | PN ---
Physical Exam: SUBJECTIVE: Patient seen and examined oob to chair. Denies fever, sweats, chills. +left flank and left groin pain. OBJECTIVE: Vital Signs Period Temp Pulse Resp BP Sys/Guadalupe Pulse Ox Last 24 Hr 97.8 F-99.2 F 65-71 16-20 140-159/51-71 93-97 GENERAL: The patient is awake, alert, and fully oriented, in no acute distress. LUNGS: Breath sounds equal, clear to auscultation bilaterally, no wheezes, no crackles, no accessory muscle use. HEART: Regular rate and rhythm, S1, S2 ABDOMEN: Soft, nontender, nondistended, normoactive bowel sounds, no guarding, no rebound tenderness; no CVA tenderness EXTREMITIES: 2+ pulses, warm, well-perfused, no edema. NEUROLOGICAL: Cranial nerves II through XII grossly intact. Normal speech, gait not observed. Laboratory Results - last 24 hr 05/05/19 05/05/19 05/05/19 13:43 16:07 21:56 WBC RBC Hgb Hct MCV MCH MCHC RDW Plt Count MPV Absolute Neuts (auto) Neutrophils % Lymphocytes % Monocytes % Eosinophils % Basophils % PT with INR INR Sodium Potassium Chloride Carbon Dioxide Anion Gap BUN Creatinine Est GFR (CKD-EPI)AfAm Est GFR (CKD-EPI)NonAf POC Glucometer 95 128 Random Glucose Calcium Phosphorus Magnesium Total Bilirubin AST ALT Alkaline Phosphatase Total Protein Albumin Urine Color Yellow Urine Appearance Clear Urine pH 5.5 Urine Protein Trace Urine Glucose (UA) Trace Urine Ketones Negative Urine Blood Trace-intact Urine Nitrite Negative Urine Bilirubin Negative Urine Urobilinogen 0.2 Ur Leukocyte Esterase Negative Urine RBC 0-2 Urine WBC None seen Ur Transition Epith Cell Few Urine Bacteria Rare 05/06/19 05/06/19 05/06/19 06:07 07:15 07:15 WBC 8.6 RBC 3.41 L Hgb 10.3 L Hct 30.8 L MCV 90.3 MCH 30.3 MCHC 33.6 RDW 14.4 Plt Count 240 MPV 8.2 Absolute Neuts (auto) 6.5 Neutrophils % 75.9 Lymphocytes % 10.6 Monocytes % 11.0 H Eosinophils % 2.2 Basophils % 0.3 PT with INR 15.1 H INR 1.36 H D Sodium Potassium Chloride Carbon Dioxide Anion Gap BUN Creatinine Est GFR (CKD-EPI)AfAm Est GFR (CKD-EPI)NonAf POC Glucometer 119 Random Glucose Calcium Phosphorus Magnesium Total Bilirubin AST ALT Alkaline Phosphatase Total Protein Albumin Urine Color Urine Appearance Urine pH Urine Protein Urine Glucose (UA) Urine Ketones Urine Blood Urine Nitrite Urine Bilirubin Urine Urobilinogen Ur Leukocyte Esterase Urine RBC Urine WBC Ur Transition Epith Cell Urine Bacteria 05/06/19 07:15 WBC RBC Hgb Hct MCV MCH MCHC RDW Plt Count MPV Absolute Neuts (auto) Neutrophils % Lymphocytes % Monocytes % Eosinophils % Basophils % PT with INR INR Sodium 140 Potassium 3.7 Chloride 109 H Carbon Dioxide 25 Anion Gap 6 L BUN 22.0 H Creatinine 1.3 Est GFR (CKD-EPI)AfAm 59.31 Est GFR (CKD-EPI)NonAf 51.17 POC Glucometer Random Glucose 131 H Calcium 8.2 L Phosphorus 3.2 Magnesium 1.8 Total Bilirubin 0.5 AST 30 ALT 36 Alkaline Phosphatase 48 Total Protein 5.5 L Albumin 2.2 L Urine Color Urine Appearance Urine pH Urine Protein Urine Glucose (UA) Urine Ketones Urine Blood Urine Nitrite Urine Bilirubin Urine Urobilinogen Ur Leukocyte Esterase Urine RBC Urine WBC Ur Transition Epith Cell Urine Bacteria Active Medications Generic Name Dose Route Start Last Admin Trade Name Freq PRN Reason Stop Dose Admin Acetaminophen 650 mg 05/05/19 14:46 Tylenol - PO Q6H PRN PAIN LEVEL 4 - 6 Amlodipine Besylate 10 mg 05/06/19 10:00 05/06/19 09:12 Norvasc - PO 10 mg DAILY RUTH Administration Aspirin 81 mg 05/06/19 10:00 05/06/19 09:11 Ecotrin - PO 81 mg DAILY RUTH Administration Atorvastatin Calcium 80 mg 05/05/19 22:00 05/05/19 21:59 Lipitor - PO 80 mg HS RUTH Administration Docusate Sodium 100 mg 05/05/19 22:00 05/06/19 09:11 Colace - PO 100 mg BID RUTH Administration Heparin Sodium (Porcine) 5,000 unit 05/05/19 18:00 05/06/19 09:11 Heparin - SQ 5,000 unit Q8H-IV RUTH Administration Sodium Chloride 1,000 mls @ 50 mls/hr 05/05/19 15:00 05/05/19 15:25 Normal Saline - IV 05/06/19 14:48 50 mls/hr ASDIR RUTH Administration Insulin Aspart 1 vial 05/05/19 16:30 05/05/19 21:59 Novolog Vial Sliding Scale - SQ Not Given ACHS [facility] Protocol Levofloxacin 500 mg 05/06/19 06:00 05/06/19 06:57 Levaquin - PO 500 mg DAILY@0600 RUTH Administration Memantine 10 mg 05/05/19 22:00 05/06/19 09:12 Namenda - PO 10 mg BID RUTH Administration Multivitamins 1 each 05/06/19 10:00 05/06/19 09:12 Total B With C - PO 1 each DAILY RUTH Administration Ondansetron HCl 4 mg 05/05/19 15:00 Zofran Injection IVPUSH Q8H PRN NAUSEA Oxycodone HCl 5 mg 05/05/19 14:46 Roxicodone - PO Q8H PRN PAIN LEVEL 7 - 10 Senna 2 tab 05/05/19 22:00 05/05/19 22:00 Senna - PO 2 tab HS RUTH Administration Sertraline HCl 50 mg 05/05/19 22:00 05/06/19 09:12 Zoloft - PO 50 mg BID RUTH Administration Tamsulosin HCl 0.4 mg 05/06/19 08:30 05/06/19 09:11 Flomax - PO 0.4 mg DAILY@0830 RUTH Administration PCP: Dr. Brantley Imaging 04/29 CTAP: 5mm left ureter stone with hydronephrosis 05/05 CTAP: 5mm left ureteral stone migrated to UVJ, increased hydro, perinephric stranding ASSESSMENT/PLAN: 83 year-old male with a PMH significant for HTN, HLD, CAD s/p 3vCABG, CVA 2016, Type II NIDDM, prostate cancer, and dementia. Hospitalized 04/28-05/04 for partially obstructing left ureter stone. Readmitted 05/05 for same problem Obstructing left ureter stone Left hydronephrosis --05/05 imaging: stone has migrated to UVJ, worsening hydro --levofloxacin started empirically on previous admission, will continue --IV fluids running --strain urine --urology following; plan is to OR tomorrow for cystoscopy/stent Acute kidney injury, resolved --Cr 1.9 on initial admission on 04/28, now 1.3 --continue to monitor Hypertension --BP stable --continue amlodipine Hyperlipidemia --continue Lipitor Coronary artery disease s/p 3vCABG --hold ASA for surgery; continue statin CVA --hold ASA for surgery; continue statin Prostate cancer --stable Dementia --continue Namenda; aricept on hold due to prolonged QT interval reaction with levofloxacin Type II NIDDM --Novolog sliding scale coverage FEN Fluids: NS@50mL/hr Electrolytes: replete as indicated Nutrition: low sodium DVT prophylaxis: SCDs, oob, ambulation; subq heparin on hold Physical therapy Dispo: continues to require inpatient care. Transfer to [facility] in am for OR. Full code. --was started on empiric levofloxacin during previous admission --afebrile, WBC trending up; UA negative; cultures pending; observe off antibiotics --IV fluids running --strain urine --strict I&Os --urology following Acute kidney injury --Cr 1.9 on admission, 1.4 today, 1.0 baseline --continue to trend Hypertension --BP stable --continue amlodipine Hyperlipidemia --continue Lipitor Coronary artery disease s/p 3vCABG --continue ASA, statin CVA --continue ASA, statin Prostate cancer --stable Dementia --continue Namenda, Aricept Type II NIDDM --stop metformin --Novolog sliding scale coverage Metabolic encephalopathy --likely secondary to effects of opioids --narcan x 2 with improvement in mental status --CT head unremarkable FEN Fluids: NS@75mL/hr Electrolytes: replete as indicated Nutrition: low sodium DVT prophylaxis: SCDs, oob, ambulation; no chemical prophylaxis due to possible surgical intervention Physical therapy Dispo: continues to require inpatient care. Full code. Transfer to [facility] as there are no OR services at [facility] over the weekend. Visit type - Emergency Visit Emergency Visit: Yes ED Registration Date: 05/05/19 Care time: The patient presented to the Emergency Department on the above date and was hospitalized for further evaluation of their emergent condition. - New Patient This patient is new to me today: Yes Date on this admission: 05/06/19 - Critical Care Critical Care patient: No
--- NOTE | 2019-05-06 14:07 | EKG ---
Test Reason : Blood Pressure : / mmHG Vent. Rate : 069 BPM Atrial Rate : 069 BPM P-R Int : 114 ms QRS Dur : 070 ms QT Int : 448 ms P-R-T Axes : 050 055 049 degrees QTc Int : 480 ms POOR DATA QUALITY, INTERPRETATION MAY BE ADVERSELY AFFECTED SINUS RHYTHM WITH FREQUENT PREMATURE VENTRICULAR COMPLEXES IN A PATTERN OF BIGEMINY NONSPECIFIC ST ABNORMALITY ABNORMAL ECG WHEN COMPARED WITH ECG OF 03-MAY-2019 09:26, NO SIGNIFICANT CHANGE WAS FOUND Confirmed by JUDITH CAMARILLO MD ([id number]) on 05/06/2019 2:07:16 PM Referred By: AMEE MONTOYA Confirmed By:JUDITH CAMARILLO MD
[2019-05-06] MEDS ORDERED: SODIUM CHLORIDE 1,000 ML IV SCH (16:15)
[2019-05-06] MEDS: SENNOSIDES 8.6MG TABLET (FP) PO SCH (21:48)
[2019-05-06] MEDS: ATORVASTATIN CA 80 MG TABLET (FP) PO SCH (21:48)
[2019-05-06] MEDS: INSULIN SLIDING SCALE (NOVOLOG) 1 VIAL SQ SCH (23:13)
[2019-05-06] MEDS: oxyCODONE HCL 5 MG TABLET PO PRN (23:15)
[2019-05-07] MEDS: INSULIN SLIDING SCALE (NOVOLOG) 1 VIAL SQ SCH ×3 (07:53→22:07)
--- NOTE | 2019-05-07 08:06 | PN ---
Progress Note (short form) - Note Progress Note: folr ureteroscopic laser lithotripsy and stent placement today.
[2019-05-07] MEDS: TAMSULOSIN HCL 0.4 MG CAP PO SCH (08:53)
--- NOTE | 2019-05-07 09:50 | PN ---
Physical Exam: SUBJECTIVE: Patient seen and examined. Feeling anxious about procedure today. OBJECTIVE: Vital Signs Period Temp Pulse Resp BP Sys/Gu[place]upe Pulse Ox Last 24 Hr 97.9 F-99.5 F 64-72 18-20 140-165/45-70 93-95 GENERAL: The patient is awake, alert, and fully oriented, in no acute distress. LUNGS: Breath sounds equal, clear to auscultation bilaterally, no wheezes, no crackles, no accessory muscle use. HEART: Regular rate and rhythm, S1, S2 ABDOMEN: Soft, nontender, nondistended, normoactive bowel sounds, no guarding, no rebound tenderness; no CVA tenderness EXTREMITIES: 2+ pulses, warm, well-perfused, no edema. NEUROLOGICAL: Cranial nerves II through XII grossly intact. Normal speech, gait not observed. Laboratory Results - last 24 hr 05/07/19 07:05 POC Glucometer 124 Active Medications Generic Name Dose Route Start Last Admin Trade Name Freq PRN Reason Stop Dose Admin Acetaminophen 650 mg 05/05/19 14:46 Tylenol - PO Q6H PRN PAIN LEVEL 4 - 6 Amlodipine Besylate 10 mg 05/06/19 10:00 05/06/19 09:12 Norvasc - PO 10 mg DAILY RUTH Administration Atorvastatin Calcium 80 mg 05/05/19 22:00 05/06/19 21:48 Lipitor - PO 80 mg HS RUTH Administration Docusate Sodium 100 mg 05/05/19 22:00 05/06/19 21:48 Colace - PO 100 mg BID RUTH Administration Heparin Sodium (Porcine) 5,000 unit 05/05/19 18:00 05/06/19 09:11 Heparin - SQ 5,000 unit Q8H-IV RUTH Administration Sodium Chloride 1,000 mls @ 50 mls/hr 05/06/19 16:15 Normal Saline - IV 05/07/19 16:08 ASDIR RUTH Insulin Aspart 1 vial 05/05/19 16:30 05/07/19 07:53 Novolog Vial Sliding Scale - SQ Not Given ACHS [facility] Protocol Levofloxacin 500 mg 05/06/19 06:00 05/07/19 06:36 Levaquin - PO 500 mg DAILY@0600 RUTH Administration Memantine 10 mg 05/05/19 22:00 05/06/19 21:48 Namenda - PO 10 mg BID RUTH Administration Multivitamins 1 each 05/06/19 10:00 05/06/19 09:12 Total B With C - PO 1 each DAILY RUTH Administration Ondansetron HCl 4 mg 05/05/19 15:00 Zofran Injection IVPUSH Q8H PRN NAUSEA Oxycodone HCl 5 mg 05/05/19 14:46 05/06/19 23:15 Roxicodone - PO 5 mg Q8H PRN Administration PAIN LEVEL 7 - 10 Senna 2 tab 05/05/19 22:00 05/06/19 21:48 Senna - PO 2 tab HS RUTH Administration Sertraline HCl 50 mg 05/05/19 22:00 05/06/19 21:48 Zoloft - PO 50 mg BID RUTH Administration Tamsulosin HCl 0.4 mg 05/06/19 08:30 05/07/19 08:53 Flomax - PO 0.4 mg DAILY@0830 RUTH Administration ASSESSMENT/PLAN: 83 year-old male with a PMH significant for HTN, HLD, CAD s/p 3vCABG, CVA 2015, Type II NIDDM, prostate cancer, and dementia. Hospitalized 04/28-05/04 for partially obstructing left ureter stone. Readmitted 05/05 for worsening symptoms. Obstructing left ureter stone Left hydronephrosis --05/05 imaging: stone has migrated to UVJ, worsening hydro --levofloxacin started empirically on previous admission, will continue --IV fluids running --strain urine --to OR today for lithotripsy and stenting Acute kidney injury, resolved --Cr 1.9 on initial admission on 04/28, now 1.2 --continue to monitor Hypertension --BP stable --continue amlodipine Hyperlipidemia --continue Lipitor Coronary artery disease s/p 3vCABG --hold ASA for surgery; continue statin CVA --hold ASA for surgery; continue statin Prostate cancer --stable Dementia --continue Namenda; aricept on hold due to prolonged QT interval reaction with levofloxacin Type II NIDDM --Novolog sliding scale coverage FEN Fluids: NS@42mL/hr Electrolytes: replete as indicated Nutrition: low sodium DVT prophylaxis: SCDs, oob, ambulation; subq heparin on hold for surgery today Physical therapy Dispo: continues to require inpatient care. Transfer to [facility] for OR. Full code. Visit type - Emergency Visit Emergency Visit: Yes ED Registration Date: 05/05/19 Care time: The patient presented to the Emergency Department on the above date and was hospitalized for further evaluation of their emergent condition. - New Patient This patient is new to me today: No - Critical Care Critical Care patient: No
[2019-05-07] MEDS: DOCUSATE SODIUM 100 MG CAPSULE (FP) PO SCH ×2 (10:26→22:08)
[2019-05-07] MEDS: MEMANTINE HCL 10 MG TABLET (FP) PO SCH ×2 (10:26→21:57)
[2019-05-07] MEDS: SERTRALINE HCL 50 MG TABLET (FP) PO SCH ×2 (10:27→22:07)
[2019-05-07] MEDS: VITAMIN B COMPLEX W/C COMBO TABLET (FP) PO SCH (10:27)
[2019-05-07] MEDS: amLODIPine BESYLATE 10 MG TABLET (FP) PO SCH ×2 (10:27→14:51)
[2019-05-07 13:52] LABS: BASO % 0.5 % (0-2.0); EOS % 1.1 % (0-4.5); HEMATOCRIT 30.4 % (35.4-49); HEMOGLOBIN 10.3 GM/dL (11.7-16.9); LYMPH % 9.8 % (8-40); MCHC 33.9 g/dl (32.0-35.9); MEAN CELL VOLUME 88.4 fl (80-96); MEAN PLT VOLUME 8.4 fl (7.5-11.1); MONO % 10.8 % (3.8-10.2); NEUT % 77.8 % (42.8-82.8); PLATELET COUNT 250 K/MM3 (134-434); RBC 3.43 M/mm3 (4.00-5.60); WHITE BLOOD COUNT 9.1 K/mm3 (4.0-10.0)
--- NOTE | 2019-05-07 13:58 | EKG ---
Test Reason : Blood Pressure : / mmHG Vent. Rate : 062 BPM Atrial Rate : 062 BPM P-R Int : 128 ms QRS Dur : 086 ms QT Int : 470 ms P-R-T Axes : 045 043 055 degrees QTc Int : 477 ms NORMAL SINUS RHYTHM NORMAL ECG WHEN COMPARED WITH ECG OF 05-MAY-2019 11:58, PREMATURE VENTRICULAR COMPLEXES ARE NO LONGER PRESENT Confirmed by IVAN ESPITIA MD ([id number]) on 05/07/2019 1:58:34 PM Referred By: Confirmed By:IVAN ESPITIA MD
[2019-05-07 14:18] LABS: ALBUMIN 2.1 g/dl (3.4-5.0); ALK PHOS 62 U/L (45-117); ANION GAP 10 MMOL/L (8-16); BILIRUBIN,TOTAL 0.3 mg/dL (0.2-1); BLOOD UREA NITROGEN 20.9 mg/dL (7-18); CALCIUM 8.2 mg/dL (8.5-10.1); CHLORIDE 108 mmol/L (98-107); CO2 26 mmol/L (21-32); CREATININE 1.2 mg/dL (0.55-1.3); GLUCOSE,RANDOM 98 mg/dL (74-106); POTASSIUM 3.6 mmol/L (3.5-5.1); SGOT/AST 26 U/L (15-37); SGPT/ALT 46 U/L (13-61); SODIUM 144 mmol/L (136-145); TOT PROT 5.6 g/dl (6.4-8.2)
--- NOTE | 2019-05-07 15:06 | CON.CARD ---
Cardiology Consult (text) - Consultation Consultation Note: cc: abd pain hpi: 83 m hx dementia, cad s/p remote cabg, htn, hld, here with abd pain. Pt had abd pain, found to have kidney stone. Planned for procedure today but before procedure had bradycardia so cancelled. Pt reports he was being transferred from stretcher to bed and had a lot of abd pain and then per report had hr in 30s and hypotension. He felt a little dizzy and nausea as well. RR called and pts hr and bp soon improved. ECG then showed nsr. Pt denies cp sob palps dizzy loc pnd orthopnea le edema. Sees dr davidson for cardio. pmh: per hpi psh: cabg social: +tob hx fam: no premature cad ros: per hpi; all others nl meds: Home Medications Medication Instructions Recorded Amlodipine Besylate 10 mg PO DAILY 04/29/19 Aspirin [Aspirin EC] 81 mg PO DAILY 04/29/19 Atorvastatin Ca [Lipitor] 80 mg PO HS 04/29/19 Donepezil HCl 1 tab PO HS 04/29/19 Memantine HCl 10 mg PO BID 04/29/19 Metformin HCl [Glucophage] 500 mg PO DAILY 04/29/19 Sertraline HCl 50 mg PO TID 04/29/19 Vitamin B Complex [B Complex] 1 each PO DAILY 04/29/19 Tamsulosin HCl [Flomax -] 0.4 mg PO DAILY@0830 30 Days #30 05/04/19 cap.er.24h levoFLOXacin [Levaquin] 500 mg PO DAILY 2 Days #2 tab 05/04/19 pe: Vital Signs Period Temp Pulse Resp BP Sys/Guadalupe Pulse Ox Last 24 Hr 98.2 F-99.5 F 64-72 18-18 152-189/54-80 93-95 nad no jvd rrr s1s2 no mrg cta bl nl eff aao3 no le e/c/c abd nt nd pos bs no jaundice diaphoresis pos dp pt no carotid bruits Laboratory Last Values WBC 9.1 K/mm3 (4.0-10.0) 05/07/19 13:32 RBC 3.43 M/mm3 (4.00-5.60) L 05/07/19 13:32 Hgb 10.3 GM/dL (11.7-16.9) L 05/07/19 13:32 Hct 30.4 % (35.4-49) L D 05/07/19 13:32 MCV 88.4 fl (80-96) 05/07/19 13:32 MCH 30.0 pg (25.7-33.7) 05/07/19 13:32 MCHC 33.9 g/dl (32.0-35.9) 05/07/19 13:32 RDW 15.0 % (11.9-15.9) 05/07/19 13:32 Plt Count 250 K/MM3 (134-434) D 05/07/19 13:32 MPV 8.4 fl (7.5-11.1) 05/07/19 13:32 Absolute Neuts (auto) 7.1 K/mm3 (1.5-8.0) 05/07/19 13:32 Neutrophils % 77.8 % (42.8-82.8) 05/07/19 13:32 Lymphocytes % 9.8 % (8-40) D 05/07/19 13:32 Monocytes % 10.8 % (3.8-10.2) H 05/07/19 13:32 Eosinophils % 1.1 % (0-4.5) 05/07/19 13:32 Basophils % 0.5 % (0-2.0) 05/07/19 13:32 Nucleated RBC % 0 % (0-0) 05/07/19 13:32 PT with INR 15.1 SEC (10.2-13.0) H 05/06/19 07:15 INR 1.36 (0.82-1.09) H D 05/06/19 07:15 Sodium 144 mmol/L (136-145) 05/07/19 13:32 Potassium 3.6 mmol/L (3.5-5.1) 05/07/19 13:32 Chloride 108 mmol/L (98-107) H 05/07/19 13:32 Carbon Dioxide 26 mmol/L (21-32) 05/07/19 13:32 Anion Gap 10 MMOL/L (8-16) 05/07/19 13:32 BUN 20.9 mg/dL (7-18) H 05/07/19 13:32 Creatinine 1.2 mg/dL (0.55-1.3) 05/07/19 13:32 Est GFR (CKD-EPI)AfAm 65.33 05/07/19 13:32 Est GFR (CKD-EPI)NonAf 56.37 05/07/19 13:32 POC Glucometer 124 UNITS (80-120) 05/07/19 07:05 Random Glucose 98 mg/dL (74-106) 05/07/19 13:32 Calcium 8.2 mg/dL (8.5-10.1) L 05/07/19 13:32 Phosphorus 3.2 mg/dl (2.5-4.9) 05/06/19 07:15 Magnesium 1.8 mg/dL (1.8-2.4) 05/06/19 07:15 Total Bilirubin 0.3 mg/dL (0.2-1) 05/07/19 13:32 AST 26 U/L (15-37) 05/07/19 13:32 ALT 46 U/L (13-61) 05/07/19 13:32 Alkaline Phosphatase 62 U/L (45-117) 05/07/19 13:32 Creatine Kinase 57 U/L (26-308) 05/07/19 13:32 Troponin I < 0.02 ng/ml (0.00-0.05) 05/07/19 13:32 Total Protein 5.6 g/dl (6.4-8.2) L 05/07/19 13:32 Albumin 2.1 g/dl (3.4-5.0) L 05/07/19 13:32 Urine Color Yellow 05/05/19 13:43 Urine Appearance Clear 05/05/19 13:43 Urine pH 5.5 (4.5-8) 05/05/19 13:43 Urine Protein Trace (NEGATIVE) 05/05/19 13:43 Urine Glucose (UA) Trace (NEGATIVE) 05/05/19 13:43 Urine Ketones Negative (NEGATIVE) 05/05/19 13:43 Urine Blood Trace-intact (NEGATIVE) 05/05/19 13:43 Urine Nitrite Negative (NEGATIVE) 05/05/19 13:43 Urine Bilirubin Negative (NEGATIVE) 05/05/19 13:43 Urine Urobilinogen 0.2 (0.2-1.0) 05/05/19 13:43 Ur Leukocyte Esterase Negative (NEGATIVE) 05/05/19 13:43 Urine RBC 0-2 /hpf (0-4) 05/05/19 13:43 Urine WBC None seen (NEGATIVE) 05/05/19 13:43 Ur Transition Epith Cell Few /hpf 05/05/19 13:43 Urine Bacteria Rare /hpf (NEGATIVE) 05/05/19 13:43 tele: sr, pvcs, bigeminy ecg: sr, pvcs bigeminy, nl intervals, no ischemic changes. repeat ecg: nsr, no ischemic changes echo 05/2016: nl lv/rv, lae, mild mr, mild tr a/p: 83 m hx dementia, cad s/p remote cabg, htn, hld, here with abd pain. bradycardia, hypotension: -resolved now. seems to be a vasovagal episode 2/2 abd pain from kidney stone. -no linda on tele and bp no longer low -monitor tele, check echo, pain management cad, remote cabg: -stable, no signs acs -cont statin. resume asa after procedure. htn: -cont norvasc hld: -cont statin
[2019-05-07] MEDS: oxyCODONE HCL 5 MG TABLET PO PRN ×2 (15:54→22:10)
--- NOTE | 2019-05-07 15:56 | ECHO ---
Name: ARIANE DEAL Exam:Adult Echocardiogram Study Date: 05/07/2019 03:07 PM Age: 83 yrs Reason For Study: cad Height: 69 in Weight: 180 lb BSA: 2.0 m2 MMode/2D Measurements & Calculations LVLd ap4: 7.2 cm SV(MOD-sp4): 63.3 ml EDV(MOD-sp4): 113.0 ml LVLs ap4: 7.4 cm ESV(MOD-sp4): 49.7 ml TAPSE: 2.3 cm RV S Arthur: 13.9 cm/sec Doppler Measurements & Calculations MV E max arthur: 77.1 cm/sec Ao V2 max: 198.6 cm/sec MV A max arthur: 95.1 cm/sec Ao max P.8 mmHg MV E/A: 0.81 Ao V2 mean: 137.2 cm/sec MV dec time: 0.30 sec Ao mean P.4 mmHg Ao V2 VTI: 46.7 cm LV V1 max P.0 mmHg Med Peak E' Arthur: 7.9 cm/sec LV V1 mean P.9 mmHg Med E/e': 9.7 LV V1 max: 131.9 cm/sec Lat Peak E' Arthur: 9.7 cm/sec LV V1 mean: 91.3 cm/sec Lat E/e': 8.0 LV V1 VTI: 30.2 cm Procedure The study was technically difficult with many images being suboptimal in quality. There was technical limitations during this study due to patient positioning. Left Ventricle Left ventricular systolic function is normal. Ejection Fraction = 55-60%. The transmitral spectral Do ppler flow pattern is normal for age. Right Ventricle The right ventricle is normal in size and function. Atria Normal left and right atrial size and function. The interatrial septum is intact with no evidence for an atrial septal defect. Mitral Valve There is mild mitral valve thickening. There is no mitral valve stenosis. There is mild mitral regurg itation. Tricuspid Valve The tricuspid valve is normal in structure and function. There is mild tricuspid regurgitation. Aortic Valve The aortic valve opens well. No hemodynamically significant valvular aortic stenosis. No aortic regur gitation is present. Pulmonic Valve The pulmonic valve is not well seen, but is grossly normal. There is no pulmonic valvular stenosis. Great Vessels The aortic root is not well visualized. Pericardium/Pleura There is no pericardial effusion. Interpretation Summary The study was technically difficult with many images being suboptimal in quality. Left ventricular systolic function is normal. Ejection Fraction = 55-60%. The right ventricle is normal in size and function. There is mild tricuspid regurgitation. There is mild mitral valve thickening. There is mild mitral regurgitation. There is no pericardial effusion. MD Alba *Saran 05/07/2019 03:56 PM
[2019-05-07] MEDS ORDERED: ONDANSETRON 4 MG/2 ML VIAL IVPUSH PRN (17:34)
[2019-05-07 17:54] LABS: ALBUMIN 2.2 g/dl (3.4-5.0); BILIRUBIN,TOTAL 0.5 mg/dL (0.2-1); CALCIUM 8.7 mg/dL (8.5-10.1); CREATININE 1.1 mg/dL (0.55-1.3); POTASSIUM 3.9 mmol/L (3.5-5.1); TOT PROT 6.3 g/dl (6.4-8.2)
[2019-05-07] MEDS: SODIUM CHLORIDE 1,000 ML IV SCH (20:56)
[2019-05-07 21:40] LABS: BASO % 0.3 % (0-2.0); EOS % 1.8 % (0-4.5); HEMATOCRIT 32.8 % (35.4-49); LYMPH % 12.3 % (8-40); MCH 29.6 pg (25.7-33.7); MCHC 33.5 g/dl (32.0-35.9); MEAN CELL VOLUME 88.4 fl (80-96); MEAN PLT VOLUME 8.6 fl (7.5-11.1); NEUT % 75.6 % (42.8-82.8); PLATELET COUNT 299 K/MM3 (134-434); RBC 3.71 M/mm3 (4.00-5.60); RDW 15.1 % (11.9-15.9); WHITE BLOOD COUNT 10.4 K/mm3 (4.0-10.0)
[2019-05-07] MEDS: HEPARIN NA (PORCINE) 5,000 UNITS/ML 1ML VIAL SQ SCH (21:49)
[2019-05-07] MEDS: SENNOSIDES 8.6MG TABLET (FP) PO SCH (21:53)
[2019-05-07] MEDS: ATORVASTATIN CA 80 MG TABLET (FP) PO SCH (21:56)
[2019-05-07] MEDS: ACETAMINOPHEN 325 MG TABLET (FP) PO PRN (22:08)
[2019-05-08] MEDS: INSULIN SLIDING SCALE (NOVOLOG) 1 VIAL SQ SCH ×4 (06:02→23:00)
[2019-05-08] MEDS: HEPARIN NA (PORCINE) 5,000 UNITS/ML 1ML VIAL SQ SCH ×3 (06:02→22:58)
[2019-05-08 07:58] LABS: MAGNESIUM 2.2 mg/dL (1.8-2.4)
[2019-05-08 08:11] LABS: ALBUMIN 2.1 g/dl (3.4-5.0); BILIRUBIN,TOTAL 0.3 mg/dL (0.2-1); BLOOD UREA NITROGEN 25.3 mg/dL (7-18); CALCIUM 8.4 mg/dL (8.5-10.1); CREATININE 1.3 mg/dL (0.55-1.3); POTASSIUM 3.6 mmol/L (3.5-5.1)
[2019-05-08 08:23] LABS: HEMATOCRIT 30.7 % (35.4-49); HEMOGLOBIN 10.3 GM/dL (11.7-16.9); MCH 29.7 pg (25.7-33.7); MCHC 33.6 g/dl (32.0-35.9); MEAN CELL VOLUME 88.2 fl (80-96); MEAN PLT VOLUME 8.5 fl (7.5-11.1); PLATELET COUNT 290 K/MM3 (134-434); RBC 3.47 M/mm3 (4.00-5.60); RDW 15.3 % (11.9-15.9); WHITE BLOOD COUNT 9.3 K/mm3 (4.0-10.0)
--- NOTE | 2019-05-08 09:18 | PN ---
Physical Exam: SUBJECTIVE: Patient seen and examined. Complaints of should "all over" body pain 5/10 Denies, CP, Fever, chills, N/V/D. OBJECTIVE: Vital Signs Period Temp Pulse Resp BP Sys/Guadalupe Pulse Ox Last 24 Hr 97.3 F-98.4 F 55-68 16-18 137-189/60-80 95-95 GENERAL: The patient is awake, alert, and fully oriented, in no acute distress. LUNGS: Breath sounds equal, clear to auscultation bilaterally, no wheezes, no crackles, no accessory muscle use. HEART: Regular rate and rhythm, S1, S2 ABDOMEN: Soft, nontender, nondistended, normoactive bowel sounds, no guarding, no rebound tenderness; no CVA tenderness EXTREMITIES: 2+ pulses, warm, well-perfused, no edema. NEUROLOGICAL:Normal speech, gait not observed. Laboratory Results - last 24 hr 05/07/19 05/07/19 05/07/19 13:32 13:32 16:25 WBC 9.1 RBC 3.43 L Hgb 10.3 L Hct 30.4 L D MCV 88.4 MCH 30.0 MCHC 33.9 RDW 15.0 Plt Count 250 D MPV 8.4 Absolute Neuts (auto) 7.1 Neutrophils % 77.8 Lymphocytes % 9.8 D Monocytes % 10.8 H Eosinophils % 1.1 Basophils % 0.5 Nucleated RBC % 0 Sodium 144 144 Potassium 3.6 3.9 Chloride 108 H 108 H Carbon Dioxide 26 26 Anion Gap 10 10 BUN 20.9 H 21.0 H Creatinine 1.2 1.1 Est GFR (CKD-EPI)AfAm 65.33 72.58 Est GFR (CKD-EPI)NonAf 56.37 62.62 POC Glucometer Random Glucose 98 83 Calcium 8.2 L 8.7 Magnesium Total Bilirubin 0.3 0.5 AST 26 46 H ALT 46 55 Alkaline Phosphatase 62 68 Creatine Kinase 57 Troponin I < 0.02 Total Protein 5.6 L 6.3 L Albumin 2.1 L 2.2 L 05/07/19 05/07/19 05/07/19 17:29 21:00 22:06 WBC 10.4 H RBC 3.71 L Hgb 11.0 L Hct 32.8 L MCV 88.4 MCH 29.6 MCHC 33.5 RDW 15.1 Plt Count 299 MPV 8.6 Absolute Neuts (auto) 7.8 Neutrophils % 75.6 Lymphocytes % 12.3 D Monocytes % 10.0 Eosinophils % 1.8 Basophils % 0.3 Nucleated RBC % 0 Sodium Potassium Chloride Carbon Dioxide Anion Gap BUN Creatinine Est GFR (CKD-EPI)AfAm Est GFR (CKD-EPI)NonAf POC Glucometer 136 132 Random Glucose Calcium Magnesium Total Bilirubin AST ALT Alkaline Phosphatase Creatine Kinase Troponin I Total Protein Albumin 05/08/19 05/08/19 05/08/19 06:00 06:00 06:55 WBC 9.3 RBC 3.47 L Hgb 10.3 L Hct 30.7 L MCV 88.2 MCH 29.7 MCHC 33.6 RDW 15.3 Plt Count 290 MPV 8.5 Absolute Neuts (auto) Neutrophils % Lymphocytes % Monocytes % Eosinophils % Basophils % Nucleated RBC % Sodium 143 Potassium 3.6 Chloride 108 H Carbon Dioxide 25 Anion Gap 10 BUN 25.3 H Creatinine 1.3 Est GFR (CKD-EPI)AfAm 59.31 Est GFR (CKD-EPI)NonAf 51.17 POC Glucometer 114 Random Glucose 121 H Calcium 8.4 L Magnesium 2.2 Total Bilirubin 0.3 AST 57 H ALT 70 H Alkaline Phosphatase 65 Creatine Kinase Troponin I Total Protein 6.0 L Albumin 2.1 L Active Medications Generic Name Dose Route Start Last Admin Trade Name Freq PRN Reason Stop Dose Admin Acetaminophen 650 mg 05/07/19 17:34 05/07/19 22:08 Tylenol - PO 650 mg Q6H PRN Administration PAIN LEVEL 4 - 6 Amlodipine Besylate 10 mg 05/08/19 10:00 Norvasc - PO DAILY RUTH Atorvastatin Calcium 80 mg 05/07/19 22:00 05/07/19 21:56 Lipitor - PO 80 mg HS RUTH Administration Docusate Sodium 100 mg 05/07/19 22:00 05/07/19 22:08 Colace - PO 100 mg BID RUTH Administration Heparin Sodium (Porcine) 5,000 unit 05/07/19 22:00 05/08/19 06:02 Heparin - SQ 5,000 unit TID RUTH Administration Sodium Chloride 1,000 mls @ 42 mls/hr 05/07/19 17:45 05/07/19 20:56 Normal Saline - IV 42 mls/hr ASDIR RUTH Administration Insulin Aspart 1 vial 05/07/19 22:00 05/08/19 06:02 Novolog Vial Sliding Scale - SQ Not Given [facility] Protocol Levofloxacin 500 mg 05/08/19 06:00 05/08/19 06:02 Levaquin - PO 500 mg DAILY@0600 RUTH Administration Memantine 10 mg 05/07/19 22:00 05/07/19 21:57 Namenda - PO 10 mg BID RUTH Administration Multivitamins 1 each 05/08/19 10:00 Total B With C - PO DAILY [facility] Ondansetron HCl 4 mg 05/07/19 17:34 Zofran Injection IVPUSH Q8H PRN NAUSEA Oxycodone HCl 5 mg 05/07/19 17:34 05/07/19 22:10 Roxicodone - PO 5 mg Q8H PRN Administration PAIN LEVEL 7 - 10 Senna 2 tab 05/07/19 22:00 05/07/19 21:53 Senna - PO 2 tab HS RUTH Administration Sertraline HCl 50 mg 05/07/19 22:00 05/07/19 22:07 Zoloft - PO 50 mg BID RUTH Administration Tamsulosin HCl 0.4 mg 05/08/19 08:30 Flomax - PO DAILY@0830 [facility] ASSESSMENT/PLAN: 83 year-old male with a PMH significant for HTN, HLD, CAD s/p 3vCABG, CVA 2016, Type II NIDDM, prostate cancer, and dementia. Hospitalized 04/28-05/04 for partially obstructing left ureter stone. Readmitted 05/05 for worsening symptoms. Transferred to [facility] on 05/07 for Stent placement and lithotripsy Obstructing left ureter stone Left hydronephrosis --05/05 imaging: stone has migrated to UVJ, worsening hydro --levofloxacin started empirically on previous admission, will continue --IV fluids running --strain urine --on hold for Lithotripsy and stent placement due to cardiac episode on 05/07 --Per Dr. Yuan, continue to medically manage patient and see if the patient is able to pass stone, obtain KUB to see if the stone has moved, continue Flomax, and reevaluate tomorrow Acute kidney injury, resolved --Cr 1.3 on initial admission on 05/08, now 1.3 --continue to monitor Hypertension --BP stable --continue amlodipine Hyperlipidemia --continue Lipitor Coronary artery disease s/p 3vCABG --hold ASA for surgery; continue statin CVA --hold ASA for surgery; continue statin Bradycardia/Hypotension -Per Cardiology-Dr. Odom -resolved now. seems to be a vasovagal episode 2/2 abd pain from kidney stone. -no linda on tele and bp no longer low -Informed that team wants to proceed with lithotripsy. -Looking at chart it seems he had frequent PVCs in 2013 with Holter done -Unable to obtain history of CAB from him as he is moderately oriented ( person, place, month October) -ECG done 05/05/2019 shows SR with ventricular bigeminy. -If teams feels this is is an urgent procedure, would proceed as planned given that his bradycardia and hypotension has resolved. Understanding without further risk stratification (via history or stress test) does place him at unknown risk. But in this case, the urgency of the circumstance seems to outweight the risk. cad, remote cabg: -stable, no signs acs -cont statin. resume asa after procedure. Prostate cancer --stable Dementia --continue Namenda; aricept on hold due to prolonged QT interval reaction with levofloxacin Type II NIDDM --Novolog sliding scale coverage FEN Fluids: NS@42mL/hr Electrolytes: replete as indicated Nutrition: Will resume low sodium diet until DVT prophylaxis SCDs, oob, ambulation; subq heparin on hold for surgery today Physical therapy Dispo -Full Code -Requires Inpatient Visit type - Emergency Visit Emergency Visit: Yes ED Registration Date: 05/05/19 Care time: The patient presented to the Emergency Department on the above date and was hospitalized for further evaluation of their emergent condition. - New Patient This patient is new to me today: Yes Date on this admission: 05/08/19 - Critical Care Critical Care patient: No
--- NOTE | 2019-05-08 09:46 | PN ---
Progress Note, Physician History of Present Illness: Complains of pain Feels "lousy" No chest pains Tele: V-bigemeny, current HR 59/min - Current Medication List Current Medications: Active Medications Acetaminophen (Tylenol -) 650 mg PO Q6H PRN PRN Reason: PAIN LEVEL 4 - 6 Last Admin: 05/07/19 22:08 Dose: 650 mg Amlodipine Besylate (Norvasc -) 10 mg PO DAILY [facility] Atorvastatin Calcium (Lipitor -) 80 mg PO HS [facility] Last Admin: 05/07/19 21:56 Dose: 80 mg Docusate Sodium (Colace -) 100 mg PO BID [facility] Last Admin: 05/07/19 22:08 Dose: 100 mg Heparin Sodium (Porcine) (Heparin -) 5,000 unit SQ TID [facility] Last Admin: 05/08/19 06:02 Dose: 5,000 unit Sodium Chloride (Normal Saline -) 1,000 mls @ 42 mls/hr IV ASDIR [facility] Last Admin: 05/07/19 20:56 Dose: 42 mls/hr Insulin Aspart (Novolog Vial Sliding Scale -) 1 vial SQ ACHS [facility]; Protocol Last Admin: 05/08/19 06:02 Dose: Not Given Levofloxacin (Levaquin -) 500 mg PO DAILY@0600 [facility] Last Admin: 05/08/19 06:02 Dose: 500 mg Memantine (Namenda -) 10 mg PO BID [facility] Last Admin: 05/07/19 21:57 Dose: 10 mg Multivitamins (Total B With C -) 1 each PO DAILY [facility] Ondansetron HCl (Zofran Injection) 4 mg IVPUSH Q8H PRN PRN Reason: NAUSEA Oxycodone HCl (Roxicodone -) 5 mg PO Q8H PRN PRN Reason: PAIN LEVEL 7 - 10 Last Admin: 05/07/19 22:10 Dose: 5 mg Senna (Senna -) 2 tab PO [facility] Last Admin: 05/07/19 21:53 Dose: 2 tab Sertraline HCl (Zoloft -) 50 mg PO BID [facility] Last Admin: 05/07/19 22:07 Dose: 50 mg Tamsulosin HCl (Flomax -) 0.4 mg PO DAILY@0830 [facility] - Objective Vital Signs: Vital Signs Temperature 98.1 F 05/08/19 06:00 Pulse Rate 55 L 05/08/19 06:00 Respiratory Rate 16 05/08/19 06:00 Blood Pressure 163/71 05/08/19 06:00 O2 Sat by Pulse Oximetry (%) 95 05/07/19 21:00 Constitutional: Yes: Mild Distress Neck: Yes: Supple Cardiovascular: Yes: Regular Rate and Rhythm Respiratory: Yes: CTA Bilaterally Gastrointestinal: Yes: Normal Bowel Sounds Edema: No Labs: CBC, BMP 05/08/19 06:55 05/08/19 06:00 INR, PTT INR 1.36 (0.82-1.09) H D 05/06/19 07:15 Assessment/Plan a/p: 83 m hx dementia, cad s/p remote cabg, htn, hld, here with abd pain and ureteral stone, now in need for lithotripsy. bradycardia, hypotension: -resolved now. seems to be a vasovagal episode 2/2 abd pain from kidney stone. -no linda on tele and bp no longer low -Informed that team wants to proceed with lithotripsy. -Looking at chart it seems he had frequent PVCs in 2013 with Holter done -Unable to obtain history of CAB from him as he is moderately oriented (person, place, month October) -ECG done 05/05/2019 shows SR with ventricular bigeminy. -If teams feels this is is an urgent procedure, would proceed as planned given that his bradycardia and hypotension has resolved. Understanding without further risk stratification (via history or stress test) does place him at unknown risk. But in this case, the urgency of the circumstance seems to outweight the risk. cad, remote cabg: -stable, no signs acs -cont statin. resume asa after procedure. htn: -cont norvasc, hold if SBP <100mmHg hld: -cont statin
[2019-05-08] MEDS ORDERED: PT OWN MED DRAWER 7, Y5N ONE (10:02)
[2019-05-08] MEDS: ACETAMINOPHEN 325 MG TABLET (FP) PO PRN ×2 (10:06→17:32)
[2019-05-08] MEDS: amLODIPine BESYLATE 10 MG TABLET (FP) PO SCH (10:06)
[2019-05-08] MEDS: TAMSULOSIN HCL 0.4 MG CAP PO SCH (10:06)
[2019-05-08] MEDS: DOCUSATE SODIUM 100 MG CAPSULE (FP) PO SCH ×2 (10:06→22:57)
[2019-05-08] MEDS: oxyCODONE HCL 5 MG TABLET PO PRN ×2 (10:07→17:31)
[2019-05-08] MEDS: MEMANTINE HCL 10 MG TABLET (FP) PO SCH ×2 (10:08→22:58)
[2019-05-08] MEDS: SERTRALINE HCL 50 MG TABLET (FP) PO SCH ×2 (10:09→22:57)
[2019-05-08] MEDS: VITAMIN B COMPLEX W/C COMBO TABLET (FP) PO SCH (10:09)
[2019-05-08] MEDS: POLYETHYLENE GLYCOL 3350 119 GM BTL PO SCH (14:58)
[2019-05-08 17:15] LABS: BASO % 0.7 % (0-2.0); EOS % 2.2 % (0-4.5); HEMATOCRIT 32.2 % (35.4-49); HEMOGLOBIN 10.6 GM/dL (11.7-16.9); MCH 29.3 pg (25.7-33.7); MCHC 32.8 g/dl (32.0-35.9); MEAN CELL VOLUME 89.3 fl (80-96); MEAN PLT VOLUME 8.4 fl (7.5-11.1); MONO % 9.7 % (3.8-10.2); NEUT % 77.4 % (42.8-82.8); PLATELET COUNT 294 K/MM3 (134-434); RBC 3.61 M/mm3 (4.00-5.60); WHITE BLOOD COUNT 10.3 K/mm3 (4.0-10.0)
[2019-05-08] MEDS: SODIUM CHLORIDE 1,000 ML IV SCH (17:45)
[2019-05-08] MEDS ORDERED: BISACODYL 10 MG SUPP.RECT PR ONE (17:46)
[2019-05-08] MEDS: SENNOSIDES 8.6MG TABLET (FP) PO SCH (22:57)
[2019-05-08] MEDS: ATORVASTATIN CA 80 MG TABLET (FP) PO SCH (22:57)
[2019-05-09] MEDS: INSULIN SLIDING SCALE (NOVOLOG) 1 VIAL SQ SCH ×4 (06:06→22:53)
[2019-05-09] MEDS: oxyCODONE HCL 5 MG TABLET PO PRN ×2 (06:16→22:51)
[2019-05-09] MEDS: ACETAMINOPHEN 325 MG TABLET (FP) PO PRN ×2 (06:17→22:52)
[2019-05-09] MEDS: HEPARIN NA (PORCINE) 5,000 UNITS/ML 1ML VIAL SQ SCH ×3 (06:18→22:52)
--- NOTE | 2019-05-09 07:43 | PN ---
Physical Exam: SUBJECTIVE: Patient seen and examined. Pt resting in bed. at bedside. States he feels ok, and no significant changes. Denies CP, SHOB, fever, chills, n/v/d. Complaints of generalized body pain /10. Spoke with patient and about the recommendations from Dr. Rangel and Dr. Odom detailed in A/P below. is afraid of patient being discharged home due to his non compliance with using his walker and his constant falls. She stated that she spoke with Dr. Brantley previously and he wanted him to go to [facility] when he left the hospital. The patient was very adamant about not wanting go back to [facility]. He states he had a bad experience with his previous roommate there and that he is not going back. He and his are in total disagreement about the continuation of his care. The patient wants to go home and the states he is not always in his right mind and cannot make decisions. Janneth with case management at bedside and explained options to the and patient. Psych will be consulted to determine patient's competence and PT eval will be ordered. OBJECTIVE: Vital Signs Period Temp Pulse Resp BP Sys/Guadalupe Pulse Ox Last 24 Hr 97.5 F-98.5 F 59-67 18-19 134-155/62-83 98-98 GENERAL: The patient is awake, alerted and Oriented to person and place and slow to orient to time. LUNGS: Breath sounds equal, clear to auscultation bilaterally, no wheezes, no crackles, no accessory muscle use. HEART: Regular rate and rhythm, S1, S2 ABDOMEN: Soft, nontender, nondistended, normoactive bowel sounds, no guarding, no rebound tenderness; no CVA tenderness EXTREMITIES: 2+ pulses, warm, well-perfused, no edema. NEUROLOGICAL: Normal gait not observed. Laboratory Results - last 24 hr 05/08/19 05/08/19 05/08/19 06:00 06:55 11:12 WBC 9.3 RBC 3.47 L Hgb 10.3 L Hct 30.7 L MCV 88.2 MCH 29.7 MCHC 33.6 RDW 15.3 Plt Count 290 MPV 8.5 Absolute Neuts (auto) Neutrophils % Lymphocytes % Monocytes % Eosinophils % Basophils % Nucleated RBC % Sodium 143 Potassium 3.6 Chloride 108 H Carbon Dioxide 25 Anion Gap 10 BUN 25.3 H Creatinine 1.3 Est GFR (CKD-EPI)AfAm 59.31 Est GFR (CKD-EPI)NonAf 51.17 POC Glucometer 115 Random Glucose 121 H Calcium 8.4 L Magnesium 2.2 Total Bilirubin 0.3 AST 57 H ALT 70 H Alkaline Phosphatase 65 Total Protein 6.0 L Albumin 2.1 L 05/08/19 05/08/19 05/08/19 16:43 17:00 22:59 WBC 10.3 H RBC 3.61 L Hgb 10.6 L Hct 32.2 L MCV 89.3 MCH 29.3 MCHC 32.8 RDW 15.0 Plt Count 294 MPV 8.4 Absolute Neuts (auto) 8.0 Neutrophils % 77.4 Lymphocytes % 10.0 Monocytes % 9.7 Eosinophils % 2.2 Basophils % 0.7 Nucleated RBC % 0 Sodium Potassium Chloride Carbon Dioxide Anion Gap BUN Creatinine Est GFR (CKD-EPI)AfAm Est GFR (CKD-EPI)NonAf POC Glucometer 142 118 Random Glucose Calcium Magnesium Total Bilirubin AST ALT Alkaline Phosphatase Total Protein Albumin 05/09/19 05:44 WBC RBC Hgb Hct MCV MCH MCHC RDW Plt Count MPV Absolute Neuts (auto) Neutrophils % Lymphocytes % Monocytes % Eosinophils % Basophils % Nucleated RBC % Sodium Potassium Chloride Carbon Dioxide Anion Gap BUN Creatinine Est GFR (CKD-EPI)AfAm Est GFR (CKD-EPI)NonAf POC Glucometer 114 Random Glucose Calcium Magnesium Total Bilirubin AST ALT Alkaline Phosphatase Total Protein Albumin Active Medications Generic Name Dose Route Start Last Admin Trade Name Freq PRN Reason Stop Dose Admin Acetaminophen 650 mg 05/07/19 17:34 05/09/19 06:17 Tylenol - PO 650 mg Q6H PRN Administration PAIN LEVEL 4 - 6 Amlodipine Besylate 10 mg 05/08/19 10:00 05/08/19 10:06 Norvasc - PO 10 mg DAILY [facility] Administration Atorvastatin Calcium 80 mg 05/07/19 22:00 05/08/19 22:57 Lipitor - PO 80 mg HS RUTH Administration Docusate Sodium 100 mg 05/07/19 22:00 05/08/19 22:57 Colace - PO 100 mg BID RUTH Administration Heparin Sodium (Porcine) 5,000 unit 05/07/19 22:00 05/09/19 06:18 Heparin - SQ 5,000 unit TID RUTH Administration Sodium Chloride 1,000 mls @ 42 mls/hr 05/07/19 17:45 05/08/19 17:45 Normal Saline - IV Not Given ASDIR [facility] Insulin Aspart 1 vial 05/07/19 22:00 05/09/19 06:06 Novolog Vial Sliding Scale - SQ Not Given ACHS [facility] Protocol Levofloxacin 500 mg 05/08/19 06:00 05/09/19 06:15 Levaquin - PO 500 mg DAILY@0600 R[facility] Administration Memantine 10 mg 05/07/19 22:00 05/08/19 22:58 Namenda - PO 10 mg BID RUTH Administration Multivitamins 1 each 05/08/19 10:00 05/08/19 10:09 Total B With C - PO 1 each DAILY [facility] Administration Ondansetron HCl 4 mg 05/07/19 17:34 Zofran Injection IVPUSH Q8H PRN NAUSEA Oxycodone HCl 5 mg 05/07/19 17:34 05/09/19 06:16 Roxicodone - PO 5 mg Q8H PRN Administration PAIN LEVEL 7 - 10 Polyethylene Glycol 17 gm 05/08/19 14:00 05/08/19 14:58 Miralax (For Daily Use) - PO 17 gm DAILY [facility] Administration Senna 2 tab 05/07/19 22:00 05/08/19 22:57 Senna - PO 2 tab HS [facility]UTH Administration Sertraline HCl 50 mg 05/07/19 22:00 05/08/19 22:57 Zoloft - PO 50 mg BID [facility] Administration Tamsulosin HCl 0.4 mg 05/08/19 08:30 05/08/19 10:06 Flomax - PO 0.4 mg DAILY@0830 [facility] Administration ASSESSMENT/PLAN: 83 year-old male with a PMH significant for HTN, HLD, CAD s/p 3vCABG, CVA 2016, Type II NIDDM, prostate cancer, and dementia. Hospitalized 04/28-05/04 for partially obstructing left ureter stone. Readmitted 05/05 for worsening symptoms. Transferred to [facility] on 05/07 for Stent placement and lithotripsy Obstructing left ureter stone Left hydronephrosis --05/05 imaging: stone has migrated to UVJ, worsening hydro --levofloxacin started empirically on previous admission, will continue --IV fluids running --strain urine --on hold for Lithotripsy and stent placement due to cardiac episode on 05/07 --KUB obtained evening of 05/08 resulted: No sign of a discrete renal, ureteral or bladder calculus --Results given to Urology-Dr. Yuan and stated if the patients pain can be medically managed at home, and he is cleared by cardiology, he can be discharged and follow up outpatient with Dr. Malin's office. Acute kidney injury, resolved --Cr 1.3 on initial admission on 05/08, now 1.2 --continue to monitor Hypertension --BP stable --continue amlodipine Hyperlipidemia --continue Lipitor Coronary artery disease s/p 3vCABG --hold ASA for surgery; continue statin CVA --will continue to hold ASA --continue statin Bradycardia/Hypotension -Cardiology-Dr. Odom-spoke with him over the phone and he cleared the patient to be discharge and to follow up with [facility] -resolved now. seems to be a vasovagal episode 2/2 abd pain from kidney stone. -no linda on tele and bp no longer low -Informed that team wants to proceed with lithotripsy. -Looking at chart it seems he had frequent PVCs in 2013 with Holter done -Unable to obtain history of CAB from him as he is moderately oriented ( person, place, month October) -ECG done 05/05/2019 shows SR with ventricular bigeminy. -If teams feels this is is an urgent procedure, would proceed as planned given that his bradycardia and hypotension has resolved. Understanding without further risk stratification (via history or stress test) does place him at unknown risk. But in this case, the urgency of the circumstance seems to outweight the risk. cad, remote cabg: -stable, no signs acs -cont statin. resume asa after procedure. Prostate cancer --stable Dementia --continue Namenda; aricept on hold due to prolonged QT interval reaction with levofloxacin --Psych Consulted to Assess competence -- PT Eval Placed Type II NIDDM --Novolog sliding scale coverage Constipation -Bowel regime in place -received enema on evening of 05/08 with large bowel movement noted FEN Fluids: NS@42mL/hr Electrolytes: replete as indicated Nutrition: Will resume low sodium diet until DVT prophylaxis SCDs, oob, ambulation; subq heparin on hold for surgery today Dispo -Full Code -Discharge planning Home or SNF? Visit type - Emergency Visit Emergency Visit: Yes ED Registration Date: 05/05/19 Care time: The patient presented to the Emergency Department on the above date and was hospitalized for further evaluation of their emergent condition. - New Patient This patient is new to me today: Yes Date on this admission: 05/09/19 - Critical Care Critical Care patient: No
[2019-05-09 08:56] LABS: BASO % 0.5 % (0-2.0); EOS % 2.4 % (0-4.5); HEMOGLOBIN 9.6 GM/dL (11.7-16.9); LYMPH % 10.1 % (8-40); MCHC 34.2 g/dl (32.0-35.9); MEAN CELL VOLUME 87.8 fl (80-96); MEAN PLT VOLUME 8.3 fl (7.5-11.1); MONO % 9.1 % (3.8-10.2); NEUT % 77.9 % (42.8-82.8); PLATELET COUNT 266 K/MM3 (134-434); RBC 3.18 M/mm3 (4.00-5.60); RDW 14.8 % (11.9-15.9); WHITE BLOOD COUNT 7.7 K/mm3 (4.0-10.0)
[2019-05-09 09:05] LABS: ALBUMIN 1.9 g/dl (3.4-5.0); BILIRUBIN,TOTAL 0.3 mg/dL (0.2-1); BLOOD UREA NITROGEN 20.7 mg/dL (7-18); CALCIUM 8.1 mg/dL (8.5-10.1); CREATININE 1.2 mg/dL (0.55-1.3); POTASSIUM 3.6 mmol/L (3.5-5.1); TOT PROT 5.4 g/dl (6.4-8.2)
[2019-05-09] MEDS: TAMSULOSIN HCL 0.4 MG CAP PO SCH (09:49)
[2019-05-09] MEDS: DOCUSATE SODIUM 100 MG CAPSULE (FP) PO SCH ×2 (09:49→22:51)
[2019-05-09] MEDS: SERTRALINE HCL 50 MG TABLET (FP) PO SCH ×2 (09:49→22:51)
[2019-05-09] MEDS: amLODIPine BESYLATE 10 MG TABLET (FP) PO SCH (09:49)
[2019-05-09] MEDS: MEMANTINE HCL 10 MG TABLET (FP) PO SCH ×2 (09:49→22:51)
[2019-05-09] MEDS: POLYETHYLENE GLYCOL 3350 119 GM BTL PO SCH (10:15)
--- NOTE | 2019-05-09 10:21 | PN ---
Progress Note, Physician History of Present Illness: No CV events overnight Still in discomfort in abdomen Tele: SB 50s - Current Medication List Current Medications: Active Medications Acetaminophen (Tylenol -) 650 mg PO Q6H PRN PRN Reason: PAIN LEVEL 4 - 6 Last Admin: 05/09/19 06:17 Dose: 650 mg Amlodipine Besylate (Norvasc -) 10 mg PO DAILY [facility] Last Admin: 05/09/19 09:49 Dose: 10 mg Atorvastatin Calcium (Lipitor -) 80 mg PO HS [facility] Last Admin: 05/08/19 22:57 Dose: 80 mg Docusate Sodium (Colace -) 100 mg PO BID [facility] Last Admin: 05/09/19 09:49 Dose: 100 mg Heparin Sodium (Porcine) (Heparin -) 5,000 unit SQ TID [facility] Last Admin: 05/09/19 06:18 Dose: 5,000 unit Sodium Chloride (Normal Saline -) 1,000 mls @ 42 mls/hr IV ASDIR [facility] Last Admin: 05/08/19 17:45 Dose: Not Given Insulin Aspart (Novolog Vial Sliding Scale -) 1 vial SQ ACHS [facility]; Protocol Last Admin: 05/09/19 06:06 Dose: Not Given Levofloxacin (Levaquin -) 500 mg PO DAILY@0600 [facility] Last Admin: 05/09/19 06:15 Dose: 500 mg Memantine (Namenda -) 10 mg PO BID [facility] Last Admin: 05/09/19 09:49 Dose: 10 mg Multivitamins (Total B With C -) 1 each PO DAILY [facility] Last Admin: 05/08/19 10:09 Dose: 1 each Ondansetron HCl (Zofran Injection) 4 mg IVPUSH Q8H PRN PRN Reason: NAUSEA Oxycodone HCl (Roxicodone -) 5 mg PO Q8H PRN PRN Reason: PAIN LEVEL 7 - 10 Last Admin: 05/09/19 06:16 Dose: 5 mg Polyethylene Glycol (Miralax (For Daily Use) -) 17 gm PO DAILY [facility] Last Admin: 05/08/19 14:58 Dose: 17 gm Senna (Senna -) 2 tab PO HS [facility] Last Admin: 05/08/19 22:57 Dose: 2 tab Sertraline HCl (Zoloft -) 50 mg PO BID [facility] Last Admin: 05/09/19 09:49 Dose: 50 mg Tamsulosin HCl (Flomax -) 0.4 mg PO DAILY@0830 [facility] Last Admin: 05/09/19 09:49 Dose: 0.4 mg - Objective Vital Signs: Vital Signs Temperature 98.1 F 05/09/19 06:00 Pulse Rate 58 L 05/09/19 09:59 Respiratory Rate 20 05/09/19 09:59 Blood Pressure 147/67 05/09/19 09:59 O2 Sat by Pulse Oximetry (%) 97 05/09/19 10:02 Constitutional: Yes: Mild Distress Cardiovascular: Yes: Regular Rate and Rhythm Respiratory: Yes: CTA Bilaterally Gastrointestinal: Yes: Tenderness Edema: No Labs: CBC, BMP 05/09/19 08:10 05/09/19 08:10 INR, PTT INR 1.36 (0.82-1.09) H D 05/06/19 07:15 Assessment/Plan a/p: 83 m hx dementia, cad s/p remote cabg, htn, hld, here with abd pain and ureteral stone, now in need for lithotripsy. bradycardia, hypotension: -resolved now. seems to be a vasovagal episode 2/2 abd pain from kidney stone. -Sinus linda on tele and bp no longer low -Informed that team wants to proceed with lithotripsy. -Looking at chart it seems he had frequent PVCs in 2013 with Holter done -Unable to obtain history of CAB from him as he is moderately oriented (person, place, month October) -ECG done 05/05/2019 shows SR with ventricular bigeminy. -If teams feels this is is an urgent procedure, would proceed as planned given that his bradycardia and hypotension have resolved. Understanding without further risk stratification (via history or stress test) does place him at unknown risk. But in this case, the urgency of the circumstance seems to outweight the risk. cad, remote cabg: -stable, no signs acs -cont statin. resume asa after procedure. htn: -cont norvasc, hold if SBP <100mmHg hld: -cont statin
[2019-05-09] MEDS ORDERED: PT OWN MED DRAWER 7, Y5N ONE (12:22)
[2019-05-09] MEDS: VITAMIN B COMPLEX W/C COMBO TABLET (FP) PO SCH (13:04)
[2019-05-09] MEDS: SODIUM CHLORIDE 1,000 ML IV SCH (19:00)
[2019-05-09] MEDS: SENNOSIDES 8.6MG TABLET (FP) PO SCH (22:51)
[2019-05-09] MEDS: ATORVASTATIN CA 80 MG TABLET (FP) PO SCH (22:51)
[2019-05-10] MEDS: HEPARIN NA (PORCINE) 5,000 UNITS/ML 1ML VIAL SQ SCH ×3 (05:54→22:36)
[2019-05-10] MEDS: SODIUM CHLORIDE 1,000 ML IV SCH ×2 (05:58→19:16)
[2019-05-10] MEDS: INSULIN SLIDING SCALE (NOVOLOG) 1 VIAL SQ SCH ×4 (06:00→22:40)
--- NOTE | 2019-05-10 07:36 | PN ---
Progress Note, Physician Chief Complaint: No complains over night. States he fells better and pain in back has resolved. Transfered from [place] for further management of kidney stones History of Present Illness: 83 male with PMH of dementia, cad s/p remote CAB, HTN, HLD initially admiitted with flank pain and found to have kidney stones. Planned for procedure and developed bradycardia and procedure was cancelled. Rapid response was called after transfering from bed to chair and pt had a syncopal epsiode with hypotension and bradycardia to 30s. No cardiac events overnight on telemetry - Current Medication List Current Medications: Active Medications Acetaminophen (Tylenol -) 650 mg PO Q6H PRN PRN Reason: PAIN LEVEL 4 - 6 Last Admin: 05/09/19 22:52 Dose: 650 mg Amlodipine Besylate (Norvasc -) 10 mg PO DAILY [facility] Last Admin: 05/09/19 09:49 Dose: 10 mg Atorvastatin Calcium (Lipitor -) 80 mg PO HS [facility] Last Admin: 05/09/19 22:51 Dose: 80 mg Docusate Sodium (Colace -) 100 mg PO BID [facility] Last Admin: 05/09/19 22:51 Dose: 100 mg Heparin Sodium (Porcine) (Heparin -) 5,000 unit SQ TID [facility] Last Admin: 05/10/19 05:54 Dose: 5,000 unit Sodium Chloride (Normal Saline -) 1,000 mls @ 42 mls/hr IV ASDIR [facility] Last Admin: 05/10/19 05:58 Dose: 42 mls/hr Insulin Aspart (Novolog Vial Sliding Scale -) 1 vial SQ ACHS [facility]; Protocol Last Admin: 05/10/19 06:00 Dose: Not Given Levofloxacin (Levaquin -) 500 mg PO DAILY@0600 [facility] Last Admin: 05/10/19 05:54 Dose: 500 mg Memantine (Namenda -) 10 mg PO BID [facility] Last Admin: 05/09/19 22:51 Dose: 10 mg Multivitamins (Total B With C -) 1 each PO DAILY [facility] Last Admin: 05/09/19 13:04 Dose: Not Given Ondansetron HCl (Zofran Injection) 4 mg IVPUSH Q8H PRN PRN Reason: NAUSEA Oxycodone HCl (Roxicodone -) 5 mg PO Q8H PRN PRN Reason: PAIN LEVEL 7 - 10 Last Admin: 05/09/19 22:51 Dose: 5 mg Polyethylene Glycol (Miralax (For Daily Use) -) 17 gm PO DAILY [facility] Last Admin: 05/09/19 10:15 Dose: 17 gm Senna (Senna -) 2 tab PO HS [facility] Last Admin: 05/09/19 22:51 Dose: 2 tab Sertraline HCl (Zoloft -) 50 mg PO BID [facility] Last Admin: 05/09/19 22:51 Dose: 50 mg Tamsulosin HCl (Flomax -) 0.4 mg PO DAILY@0830 [facility] Last Admin: 05/09/19 09:49 Dose: 0.4 mg - Objective Vital Signs: Vital Signs Temperature 97.6 F 05/10/19 02:00 Pulse Rate 57 L 05/10/19 02:00 Respiratory Rate 18 05/10/19 02:00 Blood Pressure 157/70 05/10/19 02:00 O2 Sat by Pulse Oximetry (%) 96 05/09/19 21:00 Constitutional: Yes: Well Nourished, No Distress, Calm Eyes: Yes: WNL, Conjunctiva Clear, EOM Intact HENT: Yes: WNL, Atraumatic, Normocephalic Neck: Yes: WNL, Supple, Trachea Midline Cardiovascular: Yes: WNL, Regular Rate and Rhythm Respiratory: Yes: WNL, Regular, CTA Bilaterally Gastrointestinal: Yes: WNL, Normal Bowel Sounds, Soft ...Rectal Exam: Yes: Deferred Genitourinary: Yes: WNL Breast(s): Yes: WNL Musculoskeletal: Yes: WNL Extremities: Yes: WNL Edema: No Peripheral Pulses WNL: Yes Integumentary: Yes: WNL Neurological: Yes: Alert, Confusion (periods of confusion.) ...Motor Strength: WNL Psychiatric: Yes: WNL, Alert, Oriented Labs: CBC, BMP 05/09/19 08:10 INR, PTT INR 1.36 (0.82-1.09) H D 05/06/19 07:15 - ....Imaging X-ray: Report Reviewed (AXR: resolution of left renal calculus) Other: Pending (TTE:[id number]%. Mild MR, TR) Problem List - Problems (1) Urinary tract obstruction due to kidney stone Assessment/Plan: recent KUB revealed resolution of left renal calculus no further c/o pain will c/w leavquin and IV hydration until dc to f/u with [facility] as outpatient Code(s): N20.0 - CALCULUS OF KIDNEY; N13.8 - OTHER OBSTRUCTIVE AND REFLUX UROPATHY (2) BPH (benign prostatic hyperplasia) Assessment/Plan: c/w flomax Code(s): N40.0 - BENIGN PROSTATIC HYPERPLASIA WITHOUT LOWER URINRY TRACT SYMP (3) CAD (coronary atherosclerotic disease) Assessment/Plan: c/w asa low fat/cholesterol diet Code(s): I25.10 - ATHSCL HEART DISEASE OF [place] CORONARY ARTERY W/O ANG PCTRS Qualifiers: Coronary Disease-Associated Artery/Lesion type: [place] artery [place] vs. transplanted heart: [place] heart Associated angina: angina presence unspecified Qualified Code(s): I25.10 - Atherosclerotic heart disease of [place] coronary artery without angina pectoris (4) CVA (cerebrovascular accident) Assessment/Plan: old CVA, residual LE weakness Fall precautions in place c/w PT, assistive devices-walker will benefit from further PT either at SNF or in patient rehab Code(s): I63.9 - CEREBRAL INFARCTION, UNSPECIFIED (5) Dementia Assessment/Plan: c/w home doses of namenda frequent re-orientation expressed concern about patient returning to home. Spoke with pt and he is agreeable to either in patient rehab or SNF. Previously was at [facility] and had bad encounter with another in patient, however now is aggreable to returning there if bed available Code(s): F03.90 - UNSPECIFIED DEMENTIA WITHOUT BEHAVIORAL DISTURBANCE (6) Diabetes Assessment/Plan: BGM AC/HS with novolog slide slide will resume metformin upon DC Code(s): E11.9 - TYPE 2 DIABETES MELLITUS WITHOUT COMPLICATIONS (7) HLD (hyperlipidemia) Assessment/Plan: low fat/cholesterol diet c/w atrovastatin Code(s): E78.5 - HYPERLIPIDEMIA, UNSPECIFIED Qualifiers: Hyperlipidemia type: other hyperlipidemia Qualified Code(s): E78.49 - Other hyperlipidemia; E78.4 - Other hyperlipidemia (8) Prophylactic measure Assessment/Plan: FEN c/w IVF @ 42cc/hr monitor electrolytes diabetic/low fat diet DVT heparin sq Dispo maintain as in patient full code discharge planning for placement to SNF/rehab Code(s): Z29.9 - ENCOUNTER FOR PROPHYLACTIC MEASURES, UNSPECIFIED (9) Prostate CA Code(s): C61 - MALIGNANT NEOPLASM OF PROSTATE (10) Ureteral stone with hydronephrosis Assessment/Plan: appreciate consultation c/w IV hydration c/w levaquin as per Dr. Yuan(coverage for Dr Malin)follow up outpatient with Dr. Malin's office. Will confirm Code(s): N13.2 - HYDRONEPHROSIS WITH RENAL AND URETERAL CALCULOUS OBSTRUCTION (11) S/P CABG x 3 Assessment/Plan: S/P CABG Code(s): Z95.1 - PRESENCE OF AORTOCORONARY BYPASS GRAFT (12) Hypertension Assessment/Plan: norvasc decreased to 5mg qd, no further episodes of hypotension on reduced dose Code(s): I10 - ESSENTIAL (PRIMARY) HYPERTENSION Qualifiers: Hypertension type: essential hypertension Qualified Code(s): I10 - Essential (primary) hypertension Visit type - Emergency Visit Emergency Visit: Yes ED Registration Date: 05/05/19 Care time: The patient presented to the Emergency Department on the above date and was hospitalized for further evaluation of their emergent condition. - New Patient This patient is new to me today: No - Critical Care Critical Care patient: No - Discharge Referral Referred to [facility] No
[2019-05-10 08:23] LABS: HEMATOCRIT 29.3 % (35.4-49); HEMOGLOBIN 9.9 GM/dL (11.7-16.9); MCH 29.8 pg (25.7-33.7); MCHC 33.6 g/dl (32.0-35.9); MEAN CELL VOLUME 88.7 fl (80-96); MEAN PLT VOLUME 8.5 fl (7.5-11.1); PLATELET COUNT 283 K/MM3 (134-434); RBC 3.31 M/mm3 (4.00-5.60); RDW 15.1 % (11.9-15.9); WHITE BLOOD COUNT 7.1 K/mm3 (4.0-10.0)
[2019-05-10] MEDS ORDERED: PT OWN MED DRAWER 7, Y5N ONE (09:02)
[2019-05-10] MEDS: amLODIPine BESYLATE 10 MG TABLET (FP) PO SCH (09:16)
[2019-05-10] MEDS: POLYETHYLENE GLYCOL 3350 119 GM BTL PO SCH (09:16)
[2019-05-10] MEDS: DOCUSATE SODIUM 100 MG CAPSULE (FP) PO SCH ×2 (09:16→22:36)
[2019-05-10] MEDS: MEMANTINE HCL 10 MG TABLET (FP) PO SCH ×2 (09:16→22:34)
[2019-05-10] MEDS: VITAMIN B COMPLEX W/C COMBO TABLET (FP) PO SCH (09:16)
[2019-05-10] MEDS: TAMSULOSIN HCL 0.4 MG CAP PO SCH (09:16)
[2019-05-10] MEDS: SERTRALINE HCL 50 MG TABLET (FP) PO SCH ×2 (09:16→22:40)
--- NOTE | 2019-05-10 10:08 | PN ---
Progress Note, Physician - Current Medication List Current Medications: Active Medications Acetaminophen (Tylenol -) 650 mg PO Q6H PRN PRN Reason: PAIN LEVEL 4 - 6 Last Admin: 05/09/19 22:52 Dose: 650 mg Amlodipine Besylate (Norvasc -) 10 mg PO DAILY [facility] Last Admin: 05/10/19 09:16 Dose: 10 mg Atorvastatin Calcium (Lipitor -) 80 mg PO HS [facility] Last Admin: 05/09/19 22:51 Dose: 80 mg Docusate Sodium (Colace -) 100 mg PO BID [facility] Last Admin: 05/10/19 09:16 Dose: 100 mg Heparin Sodium (Porcine) (Heparin -) 5,000 unit SQ TID [facility] Last Admin: 05/10/19 05:54 Dose: 5,000 unit Sodium Chloride (Normal Saline -) 1,000 mls @ 42 mls/hr IV ASDIR [facility] Last Admin: 05/10/19 05:58 Dose: 42 mls/hr Insulin Aspart (Novolog Vial Sliding Scale -) 1 vial SQ ACHS [facility]; Protocol Last Admin: 05/10/19 06:00 Dose: Not Given Levofloxacin (Levaquin -) 500 mg PO DAILY@0600 [facility] Last Admin: 05/10/19 05:54 Dose: 500 mg Memantine (Namenda -) 10 mg PO BID [facility] Last Admin: 05/10/19 09:16 Dose: 10 mg Multivitamins (Total B With C -) 1 each PO DAILY [facility] Last Admin: 05/10/19 09:16 Dose: 1 each Ondansetron HCl (Zofran Injection) 4 mg IVPUSH Q8H PRN PRN Reason: NAUSEA Polyethylene Glycol (Miralax (For Daily Use) -) 17 gm PO DAILY [facility] Last Admin: 05/10/19 09:16 Dose: 17 gm Senna (Senna -) 2 tab PO HS [facility] Last Admin: 05/09/19 22:51 Dose: 2 tab Sertraline HCl (Zoloft -) 50 mg PO BID [facility] Last Admin: 05/10/19 09:16 Dose: 50 mg Tamsulosin HCl (Flomax -) 0.4 mg PO DAILY@0830 [facility] Last Admin: 05/10/19 09:16 Dose: 0.4 mg Tramadol HCl (Ultram -) 50 mg PO Q8H PRN PRN Reason: PAIN LEVEL 7-10 - Objective Vital Signs: Vital Signs Temperature 98 F 05/10/19 08:20 Pulse Rate 57 L 05/10/19 08:20 Respiratory Rate 17 05/10/19 08:20 Blood Pressure 158/83 05/10/19 08:20 O2 Sat by Pulse Oximetry (%) 96 05/09/19 21:00 Labs: CBC, BMP 05/10/19 05:10 05/09/19 08:10 INR, PTT INR 1.36 (0.82-1.09) H D 05/06/19 07:15 Assessment/Plan ecg: sr, pvcs bigeminy, nl intervals, no ischemic changes. repeat ecg: nsr, no ischemic changes echo 05/2019: nl lv/rv, mild mr, mild tr a/p: 83 m hx dementia, cad s/p remote cabg, htn, hld, here with abd pain and ureteral stone, now in need for lithotripsy. bradycardia, hypotension: -resolved now. seems to be a vasovagal episode 2/2 abd pain from kidney stone. -Sinus linda on tele and bp no longer low -Informed that team wants to proceed with lithotripsy. -Looking at chart it seems he had frequent PVCs in 2013 with Holter done -Unable to obtain history of CAB from him as he is moderately oriented (person, place, month October) -ECG done 05/05/2019 shows SR with ventricular bigeminy. -LVEF is normal. -given pt cannot provide reliable history regarding functional capacity and presence or absence of CAD sx's, or cardio followup history (claims dr deal was last cardio--i.e. at time of his CABG), will risk stratify with nuclear stress test prior to planned procedure (d/w'd dr hernández who states procedure is not urgent and can wait for the testing to be completed) -defer BB given prior linda on tele cad, remote cabg: -stable, no signs acs -cont statin. resume asa after procedure. htn: -low bp's here initially, since resolved -bp running mildly elevated -reduce amlodipine 10 to 5 mg, observe bp trend hld: -cont statin
--- NOTE | 2019-05-10 19:21 | CON.PSY ---
Psychiatry Consult Chief Complaint: I am ok, I dont have any Psych problems. I am an EX [employer]. *I was in [facility] for 3v Months, they did not do much for me> I dont want to go to Rehab. Symptoms: reports: Memory Impairment - Previous Psychiatric Treatment Outpatient: None Inpatient: None - Previous Substance Abuse Treatment Outpatient: None Inpatient: None - Current Medications Current Medications: Active Medications Acetaminophen (Tylenol -) 650 mg PO Q6H PRN PRN Reason: PAIN LEVEL 4 - 6 Last Admin: 05/09/19 22:52 Dose: 650 mg Amlodipine Besylate (Norvasc -) 5 mg PO DAILY [facility] Atorvastatin Calcium (Lipitor -) 80 mg PO HS [facility] Last Admin: 05/09/19 22:51 Dose: 80 mg Docusate Sodium (Colace -) 100 mg PO BID [facility] Last Admin: 05/10/19 09:16 Dose: 100 mg Heparin Sodium (Porcine) (Heparin -) 5,000 unit SQ TID [facility] Last Admin: 05/10/19 13:23 Dose: 5,000 unit Sodium Chloride (Normal Saline -) 1,000 mls @ 42 mls/hr IV ASDIR [facility] Last Admin: 05/10/19 19:16 Dose: Not Given Insulin Aspart (Novolog Vial Sliding Scale -) 1 vial SQ ACHS [facility]; Protocol Last Admin: 05/10/19 17:25 Dose: Not Given Levofloxacin (Levaquin -) 500 mg PO DAILY@0600 [facility] Last Admin: 05/10/19 05:54 Dose: 500 mg Memantine (Namenda -) 10 mg PO BID [facility] Last Admin: 05/10/19 09:16 Dose: 10 mg Multivitamins (Total B With C -) 1 each PO DAILY [facility] Last Admin: 05/10/19 09:16 Dose: 1 each Ondansetron HCl (Zofran Injection) 4 mg IVPUSH Q8H PRN PRN Reason: NAUSEA Polyethylene Glycol (Miralax (For Daily Use) -) 17 gm PO DAILY [facility] Last Admin: 05/10/19 09:16 Dose: 17 gm Senna (Senna -) 2 tab PO HS [facility] Last Admin: 05/09/19 22:51 Dose: 2 tab Sertraline HCl (Zoloft -) 50 mg PO BID [facility] Last Admin: 05/10/19 09:16 Dose: 50 mg Tamsulosin HCl (Flomax -) 0.4 mg PO DAILY@0830 [facility] Last Admin: 05/10/19 09:16 Dose: 0.4 mg Tramadol HCl (Ultram -) 50 mg PO Q8H PRN PRN Reason: PAIN LEVEL 7-10 - Allergies Allergies: Allergies Allergy/AdvReac Type Severity Reaction Status Date / Time Penicillins Allergy Unknown Swelling Verified 05/05/19 11:46 - Current Living Status Usual Living Arrangement: With Spouse - Current Mental Status Evaluation Appearance: Well Groomed Attitude: Cooperative - Affect Affect: Constrictive Appropriateness: Appropriate to Content - Mood Mood: Irritable - Speech/Language Expressive: Coherent - Psychomotor Activity Psychomotor Activity: Normal - Thought Process Thought Process: Intact - Thought Content Hallucinations: Absent Delusions: Absent - Self Perception Self Perception: No Impairment - Cognition Attention: Alert Orientation: Time Memory, Short Term: 2/3 Memory, Remote with Promptin/3 - Concentration Serial Sevens Intact: Yes Simple Calculations Intact: Yes - Abstraction Proverb Interpretation: Intact Judgement: Minimally Impaired - Insight Insight: Intact - Impulse Control Impulse Control: Minimally Impaired - Suicidal Ideation Suicidal Ideation: No - Homicidal Ideation Homicidal Ideation: No Assessment/Plan 1) Patient has the functional capacity to make decisions at this time.
[2019-05-10] MEDS: traMADol HCL 50 MG TABLET PO PRN (22:34)
[2019-05-10] MEDS: ATORVASTATIN CA 80 MG TABLET (FP) PO SCH (22:34)
[2019-05-10] MEDS: SENNOSIDES 8.6MG TABLET (FP) PO SCH (22:35)
[2019-05-11] MEDS: traMADol HCL 50 MG TABLET PO PRN (06:21)
[2019-05-11] MEDS: INSULIN SLIDING SCALE (NOVOLOG) 1 VIAL SQ SCH ×4 (06:22→21:50)
[2019-05-11] MEDS: HEPARIN NA (PORCINE) 5,000 UNITS/ML 1ML VIAL SQ SCH ×3 (06:22→21:49)
[2019-05-11] MEDS ORDERED: REGADENOSON 0.4 MG/5 ML PRE-FILLED SYRINGE IVPUSH ONE (09:00)
[2019-05-11] MEDS ORDERED: AMINOPHYLLINE 250 MG/10 ML VIAL ONE (12:21)
[2019-05-11] MEDS ORDERED: AMINOPHYLLINE 250 MG/10 ML VIAL IVPUSH ONE (12:45)
[2019-05-11] MEDS ORDERED: PT OWN MED DRAWER 7, Y5N ONE (14:17)
--- NOTE | 2019-05-11 14:19 | PN ---
Progress Note, Physician History of Present Illness: Patient is an 83 male with PMH of dementia, CAD s/p remote CAB, HTN, HLD initially admitted with flank pain and found to have kidney stones. Planned for procedure and developed bradycardia and procedure was cancelled. Rapid response was called yesterday after patient transferred from bed to chair with hypotension and bradycardia to 30s. No cardiac events overnight on telemetry. ekg monitor: ekg: normal sinus rhythm, with frequent PVCS, patterns of bigeminy - Current Medication List Current Medications: Active Medications Acetaminophen (Tylenol -) 650 mg PO Q6H PRN PRN Reason: PAIN LEVEL 4 - 6 Last Admin: 05/09/19 22:52 Dose: 650 mg Amlodipine Besylate (Norvasc -) 5 mg PO DAILY [facility] Atorvastatin Calcium (Lipitor -) 80 mg PO HS [facility] Last Admin: 05/10/19 22:34 Dose: 80 mg Docusate Sodium (Colace -) 100 mg PO BID [facility] Last Admin: 05/10/19 22:36 Dose: 100 mg Heparin Sodium (Porcine) (Heparin -) 5,000 unit SQ TID [facility] Last Admin: 05/11/19 06:22 Dose: Not Given Sodium Chloride (Normal Saline -) 1,000 mls @ 42 mls/hr IV ASDIR [facility] Last Admin: 05/10/19 19:16 Dose: Not Given Insulin Aspart (Novolog Vial Sliding Scale -) 1 vial SQ ACHS [facility]; Protocol Last Admin: 05/11/19 06:22 Dose: Not Given Levofloxacin (Levaquin -) 500 mg PO DAILY@0600 [facility] Last Admin: 05/11/19 06:22 Dose: 500 mg Memantine (Namenda -) 10 mg PO BID [facility] Last Admin: 05/10/19 22:34 Dose: 10 mg Multivitamins (Total B With C -) 1 each PO DAILY [facility] Last Admin: 05/10/19 09:16 Dose: 1 each Ondansetron HCl (Zofran Injection) 4 mg IVPUSH Q8H PRN PRN Reason: NAUSEA Polyethylene Glycol (Miralax (For Daily Use) -) 17 gm PO DAILY [facility] Last Admin: 05/10/19 09:16 Dose: 17 gm Senna (Senna -) 2 tab PO HS [facility] Last Admin: 05/10/19 22:35 Dose: 2 tab Sertraline HCl (Zoloft -) 50 mg PO BID [facility] Last Admin: 05/10/19 22:40 Dose: 50 mg Tamsulosin HCl (Flomax -) 0.4 mg PO DAILY@0830 [facility] Last Admin: 05/10/19 09:16 Dose: 0.4 mg Tramadol HCl (Ultram -) 50 mg PO Q8H PRN PRN Reason: PAIN LEVEL 7-10 Last Admin: 05/11/19 06:21 Dose: 50 mg - Objective Vital Signs: Vital Signs Temperature 98.2 F 05/11/19 14:13 Pulse Rate 62 05/11/19 14:13 Respiratory Rate 17 05/11/19 14:13 Blood Pressure 151/67 05/11/19 14:13 O2 Sat by Pulse Oximetry (%) 95 05/10/19 21:00 Constitutional: Yes: Well Nourished, No Distress Eyes: Yes: WNL HENT: Yes: WNL, Atraumatic Neck: Yes: WNL, Supple Cardiovascular: Yes: WNL, Pulse Irregular Respiratory: Yes: WNL, Regular, CTA Bilaterally Gastrointestinal: Yes: Normal Bowel Sounds, Soft ...Rectal Exam: Yes: WNL Edema: No Peripheral Pulses WNL: No Labs: CBC, BMP 05/10/19 05:10 05/09/19 08:10 INR, PTT INR 1.36 (0.82-1.09) H D 05/06/19 07:15 Problem List - Problems (1) Urinary tract obstruction due to kidney stone Assessment/Plan: patient admitted for pain due to kidney stone, recent KUB revealed resolution of left renal calculus no further c/o pain. continue with levaquin and IV hydration seen by urology, patient to f/u with [facility] as outpatient Code(s): N20.0 - CALCULUS OF KIDNEY; N13.8 - OTHER OBSTRUCTIVE AND REFLUX UROPATHY (2) BPH (benign prostatic hyperplasia) Assessment/Plan: c/w flomax Code(s): N40.0 - BENIGN PROSTATIC HYPERPLASIA WITHOUT LOWER URINRY TRACT SYMP (3) CAD (coronary atherosclerotic disease) Assessment/Plan: c/w asa low fat/cholesterol diet Code(s): I25.10 - ATHSCL HEART DISEASE OF [place] CORONARY ARTERY W/O ANG PCTRS Qualifiers: Coronary Disease-Associated Artery/Lesion type: [place] artery [place] vs. transplanted heart: [place] heart Associated angina: angina presence unspecified Qualified Code(s): I25.10 - Atherosclerotic heart disease of [place] coronary artery without angina pectoris (4) Diabetes Assessment/Plan: on novolog ss, stable/controlled bgms Code(s): E11.9 - TYPE 2 DIABETES MELLITUS WITHOUT COMPLICATIONS (5) HLD (hyperlipidemia) Assessment/Plan: low fat diet. on statin therapy. Code(s): E78.5 - HYPERLIPIDEMIA, UNSPECIFIED Qualifiers: Hyperlipidemia type: other hyperlipidemia Qualified Code(s): E78.49 - Other hyperlipidemia; E78.4 - Other hyperlipidemia (6) Renal colic Code(s): N23 - UNSPECIFIED RENAL COLIC (7) S/P CABG x 3 Code(s): Z95.1 - PRESENCE OF AORTOCORONARY BYPASS GRAFT (8) Hypertension Assessment/Plan: on norvasc 5. monitor bp. 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, residual LE weakness Fall precautions in place c/w PT, assistive devices-walker will benefit from further PT either at SNF or in patient rehab Code(s): I63.9 - CEREBRAL INFARCTION, UNSPECIFIED (10) Prophylactic measure Assessment/Plan: FEN c/w IVF @ 42cc/hr monitor electrolytes diabetic/low fat diet DVT heparin sq Dispo maintain as in patient full code discharge planning for placement to SNF/rehab Code(s): Z29.9 - ENCOUNTER FOR PROPHYLACTIC MEASURES, UNSPECIFIED Visit type - Emergency Visit Emergency Visit: Yes ED Registration Date: 05/05/19 Care time: The patient presented to the Emergency Department on the above date and was hospitalized for further evaluation of their emergent condition. - New Patient This patient is new to me today: Yes Date on this admission: 05/11/19 - Critical Care Critical Care patient: No - Discharge Referral Referred to [facility] Med P.C.: No
[2019-05-11] MEDS: TAMSULOSIN HCL 0.4 MG CAP PO SCH (14:25)
[2019-05-11] MEDS: amLODIPine BESYLATE 5 MG TABLET (FP) PO SCH (14:26)
[2019-05-11] MEDS: POLYETHYLENE GLYCOL 3350 119 GM BTL PO SCH (14:27)
[2019-05-11] MEDS: VITAMIN B COMPLEX W/C COMBO TABLET (FP) PO SCH (14:28)
[2019-05-11] MEDS: SERTRALINE HCL 50 MG TABLET (FP) PO SCH ×2 (14:33→21:18)
[2019-05-11] MEDS: MEMANTINE HCL 10 MG TABLET (FP) PO SCH ×2 (14:33→21:18)
[2019-05-11] MEDS: DOCUSATE SODIUM 100 MG CAPSULE (FP) PO SCH ×2 (14:33→21:18)
[2019-05-11] MEDS: ACETAMINOPHEN 325 MG TABLET (FP) PO PRN ×2 (14:38→21:19)
--- NOTE | 2019-05-11 14:56 | PN ---
Progress Note, Physician Chief Complaint: c/o neck pain TELE: NSR, w frequent PVCS, occasionally in pattern of bigeminy - Current Medication List Current Medications: Active Medications Acetaminophen (Tylenol -) 650 mg PO Q6H PRN PRN Reason: PAIN LEVEL 4 - 6 Last Admin: 05/11/19 14:38 Dose: 650 mg Amlodipine Besylate (Norvasc -) 5 mg PO DAILY [facility] Last Admin: 05/11/19 14:26 Dose: 5 mg Atorvastatin Calcium (Lipitor -) 80 mg PO HS [facility] Last Admin: 05/10/19 22:34 Dose: 80 mg Docusate Sodium (Colace -) 100 mg PO BID [facility] Last Admin: 05/11/19 14:33 Dose: 100 mg Heparin Sodium (Porcine) (Heparin -) 5,000 unit SQ TID [facility] Last Admin: 05/11/19 14:27 Dose: 5,000 unit Sodium Chloride (Normal Saline -) 1,000 mls @ 42 mls/hr IV ASDIR [facility] Last Admin: 05/10/19 19:16 Dose: Not Given Insulin Aspart (Novolog Vial Sliding Scale -) 1 vial SQ ACHS [facility]; Protocol Last Admin: 05/11/19 14:28 Dose: Not Given Levofloxacin (Levaquin -) 500 mg PO DAILY@0600 [facility] Last Admin: 05/11/19 06:22 Dose: 500 mg Memantine (Namenda -) 10 mg PO BID [facility] Last Admin: 05/11/19 14:33 Dose: 10 mg Multivitamins (Total B With C -) 1 each PO DAILY [facility] Last Admin: 05/11/19 14:28 Dose: 1 each Ondansetron HCl (Zofran Injection) 4 mg IVPUSH Q8H PRN PRN Reason: NAUSEA Polyethylene Glycol (Miralax (For Daily Use) -) 17 gm PO DAILY [facility] Last Admin: 05/11/19 14:27 Dose: 17 gm Senna (Senna -) 2 tab PO [facility] Last Admin: 05/10/19 22:35 Dose: 2 tab Sertraline HCl (Zoloft -) 50 mg PO BID [facility] Last Admin: 05/11/19 14:33 Dose: 50 mg Tamsulosin HCl (Flomax -) 0.4 mg PO DAILY@0830 [facility] Last Admin: 05/11/19 14:25 Dose: 0.4 mg Tramadol HCl (Ultram -) 50 mg PO Q8H PRN PRN Reason: PAIN LEVEL 7-10 Last Admin: 05/11/19 06:21 Dose: 50 mg - Objective Vital Signs: Vital Signs Temperature 98.2 F 05/11/19 14:13 Pulse Rate 62 05/11/19 14:13 Respiratory Rate 17 05/11/19 14:13 Blood Pressure 151/67 05/11/19 14:13 O2 Sat by Pulse Oximetry (%) 95 05/10/19 21:00 Constitutional: Yes: Calm Eyes: Yes: Conjunctiva Clear Cardiovascular: Yes: Pulse Irregular Respiratory: Yes: CTA Bilaterally (no rales, no wheezing.) Gastrointestinal: Yes: Soft (NT) Edema: No Neurological: Yes: Alert, Oriented Labs: CBC, BMP 05/10/19 05:10 05/09/19 08:10 INR, PTT INR 1.36 (0.82-1.09) H D 05/06/19 07:15 - ....Imaging EKG: Image Reviewed Assessment/Plan Assessment/Plan ecg: sr, pvcs bigeminy, nl intervals, no ischemic changes. repeat ecg: nsr, no ischemic changes echo 05/2019: nl lv/rv, mild mr, mild tr a/p: 83 m hx dementia, cad s/p remote cabg, htn, hld, here with abd pain and ureteral stone, now in need for lithotripsy. Bradycardia, hypotension: -resolved now. seems to be a vasovagal episode 2/2 abd pain from kidney stone. -Sinus linda on tele and bp no longer low -Looking at chart it seems he had frequent PVCs in 2013 with Holter done -ECG done 05/05/2019 shows SR with ventricular bigeminy, which persists, LVEF normal -LVEF is normal. -given pt cannot provide reliable history regarding functional capacity and presence or absence of CAD sx's, or cardio followup history (claims dr deal was last cardio--i.e. at time of his CABG), will risk stratify with nuclear stress test prior to planned procedure, results pending. (d/w'd dr hernández who states procedure is not urgent and can wait for the testing to be completed) -defer BB given prior linda on tele -check K+ and Mg2+ to assure that lytes are stable. CAD, remote cabg: -stable, no signs acs -cont statin. resume asa after procedure. htn: -BP goal< 150/90 hld: -cont statin
[2019-05-11 16:24] LABS: BASO % 0.5 % (0-2.0); EOS % 0.8 % (0-4.5); HEMATOCRIT 30.9 % (35.4-49); HEMOGLOBIN 10.2 GM/dL (11.7-16.9); LYMPH % 9.7 % (8-40); MCH 29.4 pg (25.7-33.7); MCHC 33.1 g/dl (32.0-35.9); MEAN CELL VOLUME 88.8 fl (80-96); MEAN PLT VOLUME 8.2 fl (7.5-11.1); MONO % 9.2 % (3.8-10.2); NEUT % 79.8 % (42.8-82.8); PLATELET COUNT 305 K/MM3 (134-434); RBC 3.48 M/mm3 (4.00-5.60); RDW 14.8 % (11.9-15.9); WHITE BLOOD COUNT 8.9 K/mm3 (4.0-10.0)
[2019-05-11 17:00] LABS: BILIRUBIN,TOTAL 0.4 mg/dL (0.2-1); BLOOD UREA NITROGEN 18.8 mg/dL (7-18); CALCIUM 8.6 mg/dL (8.5-10.1); CREATININE 1.2 mg/dL (0.55-1.3); MAGNESIUM 2.2 mg/dL (1.8-2.4); POTASSIUM 4.2 mmol/L (3.5-5.1); TOT PROT 5.8 g/dl (6.4-8.2)
[2019-05-11] MEDS ORDERED: DEXTROSE 50%-WATER - 25 GM/50 ML VIAL IVPUSH ONE (17:25)
[2019-05-11] MEDS: SODIUM CHLORIDE 1,000 ML IV SCH (19:20)
[2019-05-11] MEDS: ATORVASTATIN CA 80 MG TABLET (FP) PO SCH (21:18)
[2019-05-11] MEDS: SENNOSIDES 8.6MG TABLET (FP) PO SCH (21:19)
[2019-05-12] MEDS: HEPARIN NA (PORCINE) 5,000 UNITS/ML 1ML VIAL SQ SCH ×3 (06:18→23:05)
[2019-05-12 06:20] LABS: BASO % 0.6 % (0-2.0); EOS % 1.8 % (0-4.5); HEMATOCRIT 31.2 % (35.4-49); HEMOGLOBIN 10.5 GM/dL (11.7-16.9); LYMPH % 16.2 % (8-40); MCH 29.9 pg (25.7-33.7); MCHC 33.6 g/dl (32.0-35.9); MEAN PLT VOLUME 8.5 fl (7.5-11.1); MONO % 10.9 % (3.8-10.2); NEUT % 70.5 % (42.8-82.8); PLATELET COUNT 297 K/MM3 (134-434); RDW 14.9 % (11.9-15.9); WHITE BLOOD COUNT 6.9 K/mm3 (4.0-10.0)
[2019-05-12] MEDS: INSULIN SLIDING SCALE (NOVOLOG) 1 VIAL SQ SCH ×4 (06:22→23:03)
[2019-05-12] MEDS: ACETAMINOPHEN 325 MG TABLET (FP) PO PRN (06:45)
[2019-05-12 06:49] LABS: ALBUMIN 2.1 g/dl (3.4-5.0); BILIRUBIN,TOTAL 0.4 mg/dL (0.2-1); BLOOD UREA NITROGEN 18.2 mg/dL (7-18); CALCIUM 8.6 mg/dL (8.5-10.1); CREATININE 1.1 mg/dL (0.55-1.3); MAGNESIUM 2.2 mg/dL (1.8-2.4); POTASSIUM 4.3 mmol/L (3.5-5.1); TOT PROT 6.1 g/dl (6.4-8.2)
[2019-05-12] MEDS: TAMSULOSIN HCL 0.4 MG CAP PO SCH (08:29)
[2019-05-12] MEDS ORDERED: PT OWN MED DRAWER 7, Y5N ONE (09:09)
[2019-05-12] MEDS: SERTRALINE HCL 50 MG TABLET (FP) PO SCH ×2 (09:25→23:04)
[2019-05-12] MEDS: amLODIPine BESYLATE 5 MG TABLET (FP) PO SCH (09:25)
[2019-05-12] MEDS: DOCUSATE SODIUM 100 MG CAPSULE (FP) PO SCH ×2 (09:25→23:04)
[2019-05-12] MEDS: POLYETHYLENE GLYCOL 3350 119 GM BTL PO SCH (09:26)
[2019-05-12] MEDS: MEMANTINE HCL 10 MG TABLET (FP) PO SCH ×2 (09:26→23:04)
[2019-05-12] MEDS: VITAMIN B COMPLEX W/C COMBO TABLET (FP) PO SCH (10:03)
--- NOTE | 2019-05-12 11:00 | PN ---
Progress Note (short form) - Note Progress Note: s: no chest pain, palps, dizziness Current Medications Acetaminophen (Tylenol -) 650 mg PO Q6H PRN PRN Reason: PAIN LEVEL 4 - 6 Last Admin: 05/12/19 06:45 Dose: 650 mg Amlodipine Besylate (Norvasc -) 5 mg PO DAILY [facility] Last Admin: 05/12/19 09:25 Dose: 5 mg Atorvastatin Calcium (Lipitor -) 80 mg PO HS [facility] Last Admin: 05/11/19 21:18 Dose: 80 mg Docusate Sodium (Colace -) 100 mg PO BID [facility] Last Admin: 05/12/19 09:25 Dose: 100 mg Heparin Sodium (Porcine) (Heparin -) 5,000 unit SQ TID [facility] Last Admin: 05/12/19 06:18 Dose: 5,000 unit Sodium Chloride (Normal Saline -) 1,000 mls @ 42 mls/hr IV ASDIR [facility] Last Admin: 05/11/19 19:20 Dose: 42 mls/hr Insulin Aspart (Novolog Vial Sliding Scale -) 1 vial SQ ACHS [facility]; Protocol Last Admin: 05/12/19 06:22 Dose: Not Given Levofloxacin (Levaquin -) 500 mg PO DAILY@0600 [facility] Last Admin: 05/12/19 06:18 Dose: 500 mg Memantine (Namenda -) 10 mg PO BID [facility] Last Admin: 05/12/19 09:26 Dose: 10 mg Multivitamins (Total B With C -) 1 each PO DAILY [facility] Last Admin: 05/12/19 10:03 Dose: 1 each Ondansetron HCl (Zofran Injection) 4 mg IVPUSH Q8H PRN PRN Reason: NAUSEA Polyethylene Glycol (Miralax (For Daily Use) -) 17 gm PO DAILY [facility] Last Admin: 05/12/19 09:26 Dose: 17 gm Senna (Senna -) 2 tab PO HS [facility] Last Admin: 05/11/19 21:19 Dose: 2 tab Sertraline HCl (Zoloft -) 50 mg PO BID [facility] Last Admin: 05/12/19 09:25 Dose: 50 mg Tamsulosin HCl (Flomax -) 0.4 mg PO DAILY@0830 [facility] Last Admin: 05/12/19 08:29 Dose: 0.4 mg Tramadol HCl (Ultram -) 50 mg PO Q8H PRN PRN Reason: PAIN LEVEL 7-10 Last Admin: 05/11/19 06:21 Dose: 50 mg Vital Signs Period Temp Pulse Resp BP Sys/[place] Pulse Ox Last 24 Hr 97.6 F-98.2 F 46-62 16-18 144-155/63-72 Constitutional: Yes: Calm Eyes: Yes: Conjunctiva Clear Cardiovascular: Yes: Pulse Irregular Respiratory: Yes: CTA Bilaterally (no rales, no wheezing.) Gastrointestinal: Yes: Soft (NT) Edema: No Neurological: Yes: Alert, Oriented no jaundice, diaphoresis not agitated ecg: sr, pvcs bigeminy, nl intervals, no ischemic changes. repeat ecg: nsr, no ischemic changes echo 05/2019: nl lv/rv, mild mr, mild tr mibi 05/2019 medium size, mod severity inferior wall defect that is fixed. Due to frequent ectopy, study not gated, cannot determine if defect is infarct vs attenuation. no ischemia. TELE: sinus with PVCs a/p: 83 m hx dementia, cad s/p remote cabg, htn, hld, here with abd pain and ureteral stone Bradycardia, hypotension: -resolved now. seems to be a vasovagal episode 2/2 abd pain from kidney stone. -Sinus linda on tele and bp no longer low -Looking at chart it seems he had frequent PVCs in 2013 with Holter done -ECG done 05/05/2019 shows SR with ventricular bigeminy, which persists, LVEF normal - no ischemia on mibi - now plans for follow up with urology as outpatient. no further testing prior to procedure if needed -defer BB given prior linda on tele -check K+ and Mg2+ to assure that lytes are stable. CAD, remote cabg: -stable, no signs acs -cont statin. resume asa after procedure. -LVEF is normal on echo -no ischemia on mibi - fixed defect infarct vs artifact (study not gated due to ectopy) htn: -BP goal< 150/90 hld: -cont statin
[2019-05-12] MEDS: traMADol HCL 50 MG TABLET PO PRN (13:57)
--- NOTE | 2019-05-12 15:26 | DS ---
Physical Exam: SUBJECTIVE: Patient seen and examined OBJECTIVE: Vital Signs Period Temp Pulse Resp BP Sys/[place]upe Pulse Ox Last 24 Hr 97.5 F-97.9 F 46-62 16-20 139-165/52-89 95 PHYSICAL EXAM GENERAL: The patient is awake, alert, and fully oriented, in no acute distress. HEAD: Normal with no signs of trauma. EYES: PERRL, extraocular movements intact, sclera anicteric, conjunctiva clear. ENT: Ears normal, nares patent, oropharynx clear without exudates, moist mucous membranes. NECK: Trachea midline, full range of motion, supple. LUNGS: Breath sounds equal, clear to auscultation bilaterally, no wheezes, no crackles, no accessory muscle use. HEART: Regular rate and rhythm, S1, S2 without murmur, rub or gallop. ABDOMEN: Soft, nontender, nondistended, normoactive bowel sounds, no guarding, no rebound, no hepatosplenomegaly, no masses. EXTREMITIES: 2+ pulses, warm, well-perfused, no edema. NEUROLOGICAL: Cranial nerves II through XII grossly intact. Normal speech, gait not observed. PSYCH: Normal mood, normal affect. SKIN: Warm, dry, normal turgor, no rashes or lesions noted. LABS Laboratory Results - last 24 hr 05/11/19 05/11/19 05/11/19 14:40 15:10 15:10 WBC 8.9 RBC 3.48 L Hgb 10.2 L Hct 30.9 L MCV 88.8 MCH 29.4 MCHC 33.1 RDW 14.8 Plt Count 305 MPV 8.2 Absolute Neuts (auto) 7.1 Neutrophils % 79.8 Lymphocytes % 9.7 Monocytes % 9.2 Eosinophils % 0.8 Basophils % 0.5 Nucleated RBC % 0 Sodium 141 Potassium 4.2 Chloride 105 Carbon Dioxide 29 Anion Gap 7 L BUN 18.8 H Creatinine 1.2 Est GFR (CKD-EPI)AfAm 65.33 Est GFR (CKD-EPI)NonAf 56.37 POC Glucometer Random Glucose 93 Calcium 8.6 Magnesium 2.2 Total Bilirubin 0.4 AST 31 ALT 49 Alkaline Phosphatase 63 Troponin I < 0.02 Total Protein 5.8 L Albumin 2.0 L 05/11/19 05/11/19 05/11/19 17:14 17:29 21:47 WBC RBC Hgb Hct MCV MCH MCHC RDW Plt Count MPV Absolute Neuts (auto) Neutrophils % Lymphocytes % Monocytes % Eosinophils % Basophils % Nucleated RBC % Sodium Potassium Chloride Carbon Dioxide Anion Gap BUN Creatinine Est GFR (CKD-EPI)AfAm Est GFR (CKD-EPI)NonAf POC Glucometer 45 127 110 Random Glucose Calcium Magnesium Total Bilirubin AST ALT Alkaline Phosphatase Troponin I Total Protein Albumin 05/12/19 05/12/19 05/12/19 05:05 05:05 06:17 WBC 6.9 RBC 3.50 L Hgb 10.5 L Hct 31.2 L MCV 89.0 MCH 29.9 MCHC 33.6 RDW 14.9 Plt Count 297 MPV 8.5 Absolute Neuts (auto) 4.9 Neutrophils % 70.5 Lymphocytes % 16.2 D Monocytes % 10.9 H Eosinophils % 1.8 D Basophils % 0.6 Nucleated RBC % 0 Sodium 144 Potassium 4.3 Chloride 106 Carbon Dioxide 30 Anion Gap 8 BUN 18.2 H Creatinine 1.1 Est GFR (CKD-EPI)AfAm 72.58 Est GFR (CKD-EPI)NonAf 62.62 POC Glucometer 112 Random Glucose 108 H Calcium 8.6 Magnesium 2.2 Total Bilirubin 0.4 AST 37 ALT 56 Alkaline Phosphatase 67 Troponin I Total Protein 6.1 L Albumin 2.1 L 05/12/19 11:07 WBC RBC Hgb Hct MCV MCH MCHC RDW Plt Count MPV Absolute Neuts (auto) Neutrophils % Lymphocytes % Monocytes % Eosinophils % Basophils % Nucleated RBC % Sodium Potassium Chloride Carbon Dioxide Anion Gap BUN Creatinine Est GFR (CKD-EPI)AfAm Est GFR (CKD-EPI)NonAf POC Glucometer 118 Random Glucose Calcium Magnesium Total Bilirubin AST ALT Alkaline Phosphatase Troponin I Total Protein Albumin HOSPITAL COURSE: Date of Admission:05/05/19 Date of Discharge: 05/12/19 Discharge Summary Reason For Visit: PAIN, FALL Current Active Problems Urinary tract obstruction due to kidney stone (Acute) Condition: Improved - Instructions Diet, Activity, Other Instructions: Mr Luna: You will be discharged to rehab today. Please follow up with Urology, Dr. Yuan for outpatient follow up on renal stones. We did an abdominal xray on 05/08/2019 and the stones that were seen previously are no longer present. It is important that you follow up with Dr. Malin's office or Dr. Rangel 's office. Please continue all the medications as outlined in your discharge instructions. You can resume the aspirin 81mg and continue to take it. Thank you for allowing us to care for you. Referrals: Miguel Malin MD [Staff Physician] - Disposition: LONG-TERM FACILITY - Home Medications Comprehensive Discharge Medication List: Ambulatory Orders Amlodipine Besylate 10 mg PO DAILY 04/29/19 Aspirin [Aspirin EC] 81 mg PO DAILY 04/29/19 Atorvastatin Ca [Lipitor] 80 mg PO HS 04/29/19 Donepezil HCl 1 tab PO HS 04/29/19 Memantine HCl 10 mg PO BID 04/29/19 Metformin HCl [Glucophage] 500 mg PO DAILY 04/29/19 Sertraline HCl 50 mg PO TID 04/29/19 Vitamin B Complex [B Complex] 1 each PO DAILY 04/29/19 Tamsulosin HCl [Flomax -] 0.4 mg PO DAILY@0830 30 Days #30 cap.er.24h 05/04/19 Acetaminophen [Tylenol .Regular Strength -] 650 mg PO Q6H PRN tablet 05/12/19 Docusate Sodium [Colace -] 100 mg PO BID capsule 05/12/19 Polyethylene Glycol 3350 [Miralax 119 gm Btl -] 17 gm PO DAILY bottle 05/12/19 Sennosides [Senna -] 2 tab PO HS tablet 05/12/19 Problem List - Problems (1) Urinary tract obstruction due to kidney stone Code(s): N20.0 - CALCULUS OF KIDNEY; N13.8 - OTHER OBSTRUCTIVE AND REFLUX UROPATHY (2) BPH (benign prostatic hyperplasia) Code(s): N40.0 - BENIGN PROSTATIC HYPERPLASIA WITHOUT LOWER URINRY TRACT SYMP (3) CAD (coronary atherosclerotic disease) Code(s): I25.10 - ATHSCL HEART DISEASE OF [place] CORONARY ARTERY W/O ANG PCTRS Qualifiers: Coronary Disease-Associated Artery/Lesion type: [place] artery [place] vs. transplanted heart: [place] heart Associated angina: angina presence unspecified Qualified Code(s): I25.10 - Atherosclerotic heart disease of [place] coronary artery without angina pectoris (4) Diabetes Code(s): E11.9 - TYPE 2 DIABETES MELLITUS WITHOUT COMPLICATIONS (5) HLD (hyperlipidemia) Code(s): E78.5 - HYPERLIPIDEMIA, UNSPECIFIED Qualifiers: Hyperlipidemia type: other hyperlipidemia Qualified Code(s): E78.49 - Other hyperlipidemia; E78.4 - Other hyperlipidemia (6) Renal colic Code(s): N23 - UNSPECIFIED RENAL COLIC (7) S/P CABG x 3 Code(s): Z95.1 - PRESENCE OF AORTOCORONARY BYPASS GRAFT (8) Hypertension Code(s): I10 - ESSENTIAL (PRIMARY) HYPERTENSION Qualifiers: Hypertension type: essential hypertension Qualified Code(s): I10 - Essential (primary) hypertension (9) CVA (cerebrovascular accident) Code(s): I63.9 - CEREBRAL INFARCTION, UNSPECIFIED (10) Prophylactic measure Code(s): Z29.9 - ENCOUNTER FOR PROPHYLACTIC MEASURES, UNSPECIFIED - Discharge Referral Referred to [facility] Med P.C.: No
--- NOTE | 2019-05-12 17:41 | PN ---
Progress Note, Physician Chief Complaint: denies pain, denies chest pain. History of Present Illness: Patient is an 83 male with PMH of dementia, CAD s/p remote CAB, HTN, HLD initially admitted with flank pain and found to have kidney stones. Planned for procedure and developed bradycardia and procedure was cancelled. Rapid response was called yesterday after patient transferred from bed to chair with hypotension and bradycardia to 30s. No cardiac events overnight on telemetry. Patient was for discharge to [facility] to [facility], but prior to d/c he became bradycardic with an elevated bp with a systolic bp in the 190s. will cancel d/ c. monitor on tele, bp q 4 and have cardiology re-evaluate. 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, patterns of bigeminy ekg: normal sinus rhythm, - Current Medication List Current Medications: Active Medications Acetaminophen (Tylenol -) 650 mg PO Q6H PRN PRN Reason: PAIN LEVEL 4 - 6 Last Admin: 05/12/19 06:45 Dose: 650 mg Amlodipine Besylate (Norvasc -) 5 mg PO DAILY [facility] Last Admin: 05/12/19 09:25 Dose: 5 mg Atorvastatin Calcium (Lipitor -) 80 mg PO HS [facility] Last Admin: 05/11/19 21:18 Dose: 80 mg Docusate Sodium (Colace -) 100 mg PO BID [facility] Last Admin: 05/12/19 09:25 Dose: 100 mg Heparin Sodium (Porcine) (Heparin -) 5,000 unit SQ TID [facility] Last Admin: 05/12/19 14:10 Dose: 5,000 unit Sodium Chloride (Normal Saline -) 1,000 mls @ 42 mls/hr IV ASDIR [facility] Last Admin: 05/11/19 19:20 Dose: 42 mls/hr Insulin Aspart (Novolog Vial Sliding Scale -) 1 vial SQ ACHS [facility]; Protocol Last Admin: 05/12/19 17:19 Dose: Not Given Levofloxacin (Levaquin -) 500 mg PO DAILY@0600 [facility] Last Admin: 05/12/19 06:18 Dose: 500 mg Memantine (Namenda -) 10 mg PO BID [facility] Last Admin: 05/12/19 09:26 Dose: 10 mg Multivitamins (Total B With C -) 1 each PO DAILY [facility] Last Admin: 05/12/19 10:03 Dose: 1 each Ondansetron HCl (Zofran Injection) 4 mg IVPUSH Q8H PRN PRN Reason: NAUSEA Polyethylene Glycol (Miralax (For Daily Use) -) 17 gm PO DAILY [facility] Last Admin: 05/12/19 09:26 Dose: 17 gm Senna (Senna -) 2 tab PO HS [facility] Last Admin: 05/11/19 21:19 Dose: 2 tab Sertraline HCl (Zoloft -) 50 mg PO BID [facility] Last Admin: 05/12/19 09:25 Dose: 50 mg Tamsulosin HCl (Flomax -) 0.4 mg PO DAILY@0830 [facility] Last Admin: 05/12/19 08:29 Dose: 0.4 mg Tramadol HCl (Ultram -) 50 mg PO Q8H PRN PRN Reason: PAIN LEVEL 7-10 Last Admin: 05/12/19 13:57 Dose: 50 mg - Objective Vital Signs: Vital Signs Temperature 97.5 F L 05/12/19 15:22 Pulse Rate 62 05/12/19 15:22 Respiratory Rate 20 05/12/19 15:22 Blood Pressure 139/52 L 05/12/19 15:22 O2 Sat by Pulse Oximetry (%) 95 05/12/19 09:00 Constitutional: Yes: Well Nourished, No Distress Eyes: Yes: WNL HENT: Yes: Atraumatic Neck: Yes: WNL Cardiovascular: Yes: Pulse Irregular Respiratory: Yes: WNL, Regular, CTA Bilaterally Gastrointestinal: Yes: WNL, Normal Bowel Sounds ...Rectal Exam: Yes: Deferred Genitourinary: Yes: WNL Breast(s): Yes: WNL Musculoskeletal: Yes: WNL Labs: CBC, BMP 05/12/19 05:05 05/12/19 05:05 INR, PTT INR 1.36 (0.82-1.09) H D 05/06/19 07:15 Problem List - Problems (1) Urinary tract obstruction due to kidney stone Assessment/Plan: patient admitted for pain due to kidney stone, recent KUB revealed resolution of left renal calculus no further c/o pain. continue with levaquin and IV hydration seen by urology, patient to f/u with [facility] as outpatient Code(s): N20.0 - CALCULUS OF KIDNEY; N13.8 - OTHER OBSTRUCTIVE AND REFLUX UROPATHY (2) BPH (benign prostatic hyperplasia) Assessment/Plan: c/w flomax Code(s): N40.0 - BENIGN PROSTATIC HYPERPLASIA WITHOUT LOWER URINRY TRACT SYMP (3) CAD (coronary atherosclerotic disease) Assessment/Plan: c/w asa low fat/cholesterol diet Code(s): I25.10 - ATHSCL HEART DISEASE OF [place] CORONARY ARTERY W/O ANG PCTRS Qualifiers: Coronary Disease-Associated Artery/Lesion type: [place] artery [place] vs. transplanted heart: [place] heart Associated angina: angina presence unspecified Qualified Code(s): I25.10 - Atherosclerotic heart disease of [place] coronary artery without angina pectoris (4) Diabetes Assessment/Plan: on novolog ss, stable/controlled bgms Code(s): E11.9 - TYPE 2 DIABETES MELLITUS WITHOUT COMPLICATIONS (5) HLD (hyperlipidemia) Assessment/Plan: low fat diet. on statin therapy. Code(s): E78.5 - HYPERLIPIDEMIA, UNSPECIFIED Qualifiers: Hyperlipidemia type: other hyperlipidemia Qualified Code(s): E78.49 - Other hyperlipidemia; E78.4 - Other hyperlipidemia (6) Renal colic Code(s): N23 - UNSPECIFIED RENAL COLIC (7) S/P CABG x 3 Code(s): Z95.1 - PRESENCE OF AORTOCORONARY BYPASS GRAFT (8) Hypertension Assessment/Plan: on norvasc 5. monitor bp. 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, residual LE weakness Fall precautions in place c/w PT, assistive devices-walker will benefit from further PT either at SNF or in patient rehab Code(s): I63.9 - CEREBRAL INFARCTION, UNSPECIFIED (10) Prophylactic measure Assessment/Plan: FEN monitor electrolytes diabetic/low fat diet DVT heparin sq Dispo maintain as in patient full code discharge planning for placement to SNF/rehab Code(s): Z29.9 - ENCOUNTER FOR PROPHYLACTIC MEASURES, UNSPECIFIED Visit type - Emergency Visit Emergency Visit: Yes ED Registration Date: 05/05/19 Care time: The patient presented to the Emergency Department on the above date and was hospitalized for further evaluation of their emergent condition. - New Patient This patient is new to me today: No - Critical Care Critical Care patient: No - Discharge Referral Referred to [facility] Med P.C.: No
[2019-05-12] MEDS: SODIUM CHLORIDE 1,000 ML IV SCH (19:59)
[2019-05-12] MEDS: SENNOSIDES 8.6MG TABLET (FP) PO SCH (23:04)
[2019-05-12] MEDS: ATORVASTATIN CA 80 MG TABLET (FP) PO SCH (23:04)
[2019-05-13] MEDS: INSULIN SLIDING SCALE (NOVOLOG) 1 VIAL SQ SCH ×3 (06:04→16:38)
[2019-05-13] MEDS: HEPARIN NA (PORCINE) 5,000 UNITS/ML 1ML VIAL SQ SCH ×2 (06:04→13:56)
[2019-05-13 07:53] LABS: ALBUMIN 2.2 g/dl (3.4-5.0); BILIRUBIN,TOTAL 0.4 mg/dL (0.2-1); BLOOD UREA NITROGEN 18.7 mg/dL (7-18); CALCIUM 8.7 mg/dL (8.5-10.1); CREATININE 1.2 mg/dL (0.55-1.3); MAGNESIUM 2.2 mg/dL (1.8-2.4); POTASSIUM 3.7 mmol/L (3.5-5.1); TOT PROT 6.1 g/dl (6.4-8.2)
[2019-05-13 08:02] LABS: BASO % 0.4 % (0-2.0); HEMATOCRIT 30.4 % (35.4-49); HEMOGLOBIN 10.3 GM/dL (11.7-16.9); LYMPH % 11.3 % (8-40); MCH 29.9 pg (25.7-33.7); MEAN CELL VOLUME 88.1 fl (80-96); MEAN PLT VOLUME 8.5 fl (7.5-11.1); MONO % 9.3 % (3.8-10.2); PLATELET COUNT 305 K/MM3 (134-434); RBC 3.46 M/mm3 (4.00-5.60); RDW 14.9 % (11.9-15.9); WHITE BLOOD COUNT 9.3 K/mm3 (4.0-10.0)
[2019-05-13] MEDS: TAMSULOSIN HCL 0.4 MG CAP PO SCH (08:04)
[2019-05-13] MEDS ORDERED: PT OWN MED DRAWER 7, Y5N ONE (09:00)
[2019-05-13] MEDS: DOCUSATE SODIUM 100 MG CAPSULE (FP) PO SCH (09:21)
[2019-05-13] MEDS: SERTRALINE HCL 50 MG TABLET (FP) PO SCH (09:22)
[2019-05-13] MEDS: MEMANTINE HCL 10 MG TABLET (FP) PO SCH (09:22)
[2019-05-13] MEDS: VITAMIN B COMPLEX W/C COMBO TABLET (FP) PO SCH (09:22)
[2019-05-13] MEDS: amLODIPine BESYLATE 5 MG TABLET (FP) PO SCH (09:22)
--- NOTE | 2019-05-13 10:30 | PN ---
Progress Note (short form) - Note Progress Note: s: no chest pain, palps, dizziness Current Medications Generic Name Dose Route Start Last Admin Trade Name Freq PRN Reason Stop Dose Admin Acetaminophen 650 mg 05/07/19 17:34 05/12/19 06:45 Tylenol - PO 650 mg Q6H PRN Administration PAIN LEVEL 4 - 6 Amlodipine Besylate 5 mg 05/10/19 10:08 05/13/19 09:22 Norvasc - PO 5 mg DAILY [facility] Administration Atorvastatin Calcium 80 mg 05/07/19 22:00 05/12/19 23:04 Lipitor - PO 80 mg HS [facility] Administration Docusate Sodium 100 mg 05/07/19 22:00 05/13/19 09:21 Colace - PO 100 mg BID [facility] Administration Heparin Sodium (Porcine) 5,000 unit 05/07/19 22:00 05/13/19 06:04 Heparin - SQ 5,000 unit TID [facility] Administration Sodium Chloride 1,000 mls @ 42 mls/hr 05/07/19 17:45 05/12/19 19:59 Normal Saline - IV Not Given ASDIR [facility] Insulin Aspart 1 vial 05/07/19 22:00 05/13/19 06:04 Novolog Vial Sliding Scale - SQ Not Given ACHS [facility] Protocol Levofloxacin 500 mg 05/08/19 06:00 05/13/19 06:04 Levaquin - PO 500 mg DAILY@0600 [facility] Administration Memantine 10 mg 05/07/19 22:00 05/13/19 09:22 Namenda - PO 10 mg BID [facility] Administration Multivitamins 1 each 05/08/19 10:00 05/13/19 09:22 Total B With C - PO 1 each DAILY [facility] Administration Ondansetron HCl 4 mg 05/07/19 17:34 Zofran Injection IVPUSH Q8H PRN NAUSEA Polyethylene Glycol 17 gm 05/08/19 14:00 05/12/19 09:26 Miralax (For Daily Use) - PO 17 gm DAILY [facility] Administration Senna 2 tab 05/07/19 22:00 05/12/19 23:04 Senna - PO 2 tab HS [facility] Administration Sertraline HCl 50 mg 05/07/19 22:00 05/13/19 09:22 Zoloft - PO 50 mg BID [facility] Administration Tamsulosin HCl 0.4 mg 05/08/19 08:30 05/13/19 08:04 Flomax - PO 0.4 mg DAILY@0830 [facility] Administration Tramadol HCl 50 mg 05/10/19 09:37 05/12/19 13:57 Ultram - PO 50 mg Q8H PRN Administration PAIN LEVEL 7-10 Vital Signs Period Temp Pulse Resp BP Sys/Guadalupe Pulse Ox Last 24 Hr 97.5 F-98 F 44-69 16-20 139-212/52-84 96 Constitutional: Yes: Calm Eyes: Yes: Conjunctiva Clear Cardiovascular: Yes: Pulse Irregular Respiratory: Yes: CTA Bilaterally (no rales, no wheezing.) Gastrointestinal: Yes: Soft (NT) Edema: No Neurological: Yes: Alert, Oriented no jaundice, diaphoresis not agitated ecg: sr, pvcs bigeminy, nl intervals, no ischemic changes. repeat ecg: nsr, no ischemic changes echo 05/2019: nl lv/rv, mild mr, mild tr mibi 05/2019 medium size, mod severity inferior wall defect that is fixed. Due to frequent ectopy, study not gated, cannot determine if defect is infarct vs attenuation. no ischemia. TELE: sinus with PVCs a/p: 83 m hx dementia, cad s/p remote cabg, htn, hld, here with abd pain and ureteral stone Bradycardia, hypotension: -resolved now. seems to be a vasovagal episode 2/2 abd pain from kidney stone. -Sinus linda on tele and bp no longer low -Looking at chart it seems he had frequent PVCs in 2013 with Holter done -ECG done 05/05/2019 shows SR with ventricular bigeminy, which persists, LVEF normal - no ischemia on mibi - now plans for follow up with urology as outpatient. no further testing prior to procedure if needed -defer BB given prior linda on tele CAD, remote cabg: -stable, no signs acs -cont statin. resume asa after procedure. -LVEF is normal on echo -no ischemia on mibi - fixed defect infarct vs artifact (study not gated due to ectopy) htn: -BP goal< 150/90 hld: -cont statin cardiac avery stable for dc
[2019-05-13] MEDS: POLYETHYLENE GLYCOL 3350 119 GM BTL PO SCH (11:00)
--- NOTE | 2019-05-13 13:56 | EKG ---
Test Reason : Blood Pressure : / mmHG Vent. Rate : 071 BPM Atrial Rate : 071 BPM P-R Int : 124 ms QRS Dur : 076 ms QT Int : 440 ms P-R-T Axes : 032 023 047 degrees QTc Int : 478 ms POOR DATA QUALITY, INTERPRETATION MAY BE ADVERSELY AFFECTED SINUS RHYTHM WITH FREQUENT PREMATURE VENTRICULAR COMPLEXES IN A PATTERN OF BIGEMINY OTHERWISE NORMAL ECG WHEN COMPARED WITH ECG OF 07-MAY-2019 12:19, PREMATURE VENTRICULAR COMPLEXES ARE NOW PRESENT T WAVE AMPLITUDE HAS DECREASED IN ANTERIOR LEADS Confirmed by MARQUISE ROSARIO, JUDITH ([id number]) on 05/13/2019 1:55:55 PM Referred By: ALENA Confirmed By:JUDITH CAMARILLO MD
[2019-05-13 15:03] VITALS: TEMP 97.7
--- NOTE | 2019-05-13 16:19 | DS ---
Physical Exam: SUBJECTIVE: Patient seen and examined OBJECTIVE: Vital Signs Period Temp Pulse Resp BP Sys/Guadalupe Pulse Ox Last 24 Hr 97.6 F-98 F 44-74 16-18 153-212/62-84 95-96 PHYSICAL EXAM GENERAL: The patient is awake, alert, and fully oriented, in no acute distress. HEAD: Normal with no signs of trauma. EYES: PERRL, extraocular movements intact, sclera anicteric, conjunctiva clear. ENT: Ears normal, nares patent, oropharynx clear without exudates, moist mucous membranes. NECK: Trachea midline, full range of motion, supple. LUNGS: Breath sounds equal, clear to auscultation bilaterally, no wheezes, no crackles, no accessory muscle use. HEART: Regular rate and rhythm, S1, S2 without murmur, rub or gallop. ABDOMEN: Soft, nontender, nondistended, normoactive bowel sounds, no guarding, no rebound, no hepatosplenomegaly, no masses. EXTREMITIES: 2+ pulses, warm, well-perfused, no edema. NEUROLOGICAL: Cranial nerves II through XII grossly intact. Normal speech, gait not observed. PSYCH: Normal mood, normal affect. SKIN: Warm, dry, normal turgor, no rashes or lesions noted. LABS Laboratory Results - last 24 hr 05/12/19 05/12/19 05/13/19 16:49 23:02 06:03 WBC RBC Hgb Hct MCV MCH MCHC RDW Plt Count MPV Absolute Neuts (auto) Neutrophils % Lymphocytes % Monocytes % Eosinophils % Basophils % Nucleated RBC % Sodium Potassium Chloride Carbon Dioxide Anion Gap BUN Creatinine Est GFR (CKD-EPI)AfAm Est GFR (CKD-EPI)NonAf POC Glucometer 100 188 96 Random Glucose Calcium Magnesium Total Bilirubin AST ALT Alkaline Phosphatase Total Protein Albumin 05/13/19 05/13/19 05/13/19 06:15 06:15 11:17 WBC 9.3 RBC 3.46 L Hgb 10.3 L Hct 30.4 L MCV 88.1 MCH 29.9 MCHC 34.0 RDW 14.9 Plt Count 305 MPV 8.5 Absolute Neuts (auto) 7.2 Neutrophils % 78.0 Lymphocytes % 11.3 D Monocytes % 9.3 Eosinophils % 1.0 Basophils % 0.4 Nucleated RBC % 0 Sodium 142 Potassium 3.7 Chloride 106 Carbon Dioxide 27 Anion Gap 9 BUN 18.7 H Creatinine 1.2 Est GFR (CKD-EPI)AfAm 65.33 Est GFR (CKD-EPI)NonAf 56.37 POC Glucometer 112 Random Glucose 88 Calcium 8.7 Magnesium 2.2 Total Bilirubin 0.4 AST 31 ALT 50 Alkaline Phosphatase 67 Total Protein 6.1 L Albumin 2.2 L HOSPITAL COURSE: Date of Admission:05/05/19 Date of Discharge: 05/13/19 Discharge Summary Reason For Visit: PAIN, FALL Current Active Problems Urinary tract obstruction due to kidney stone (Acute) Condition: Improved - Instructions Diet, Activity, Other Instructions: Mr Luna: You will be discharged to rehab today. Please follow up with Urology, Dr. Yuan for outpatient follow up on renal stones. We did an abdominal xray on 05/08/2019 and the stones that were seen previously are no longer present. It is important that you follow up with Dr. Malin's office or Dr. Rangel 's office. Please continue all the medications as outlined in your discharge instructions. You can resume the aspirin 81mg and continue to take it. Thank you for allowing us to care for you. Referrals: Miguel Malin MD [Staff Physician] - Disposition: LONG-TERM FACILITY - Home Medications Comprehensive Discharge Medication List: Ambulatory Orders Amlodipine Besylate 10 mg PO DAILY 04/29/19 Aspirin [Aspirin EC] 81 mg PO DAILY 04/29/19 Atorvastatin Ca [Lipitor] 80 mg PO HS 04/29/19 Donepezil HCl 1 tab PO HS 04/29/19 Memantine HCl 10 mg PO BID 04/29/19 Metformin HCl [Glucophage] 500 mg PO DAILY 04/29/19 Sertraline HCl 50 mg PO TID 04/29/19 Vitamin B Complex [B Complex] 1 each PO DAILY 04/29/19 Tamsulosin HCl [Flomax -] 0.4 mg PO DAILY@0830 30 Days #30 cap.er.24h 05/04/19 Acetaminophen [Tylenol .Regular Strength -] 650 mg PO Q6H PRN tablet 05/12/19 Docusate Sodium [Colace -] 100 mg PO BID capsule 05/12/19 Polyethylene Glycol 3350 [Miralax 119 gm Btl -] 17 gm PO DAILY bottle 05/12/19 Sennosides [Senna -] 2 tab PO HS tablet 05/12/19 Problem List - Problems (1) Urinary tract obstruction due to kidney stone Code(s): N20.0 - CALCULUS OF KIDNEY; N13.8 - OTHER OBSTRUCTIVE AND REFLUX UROPATHY (2) BPH (benign prostatic hyperplasia) Code(s): N40.0 - BENIGN PROSTATIC HYPERPLASIA WITHOUT LOWER URINRY TRACT SYMP (3) CAD (coronary atherosclerotic disease) Code(s): I25.10 - ATHSCL HEART DISEASE OF [place] CORONARY ARTERY W/O ANG PCTRS Qualifiers: Coronary Disease-Associated Artery/Lesion type: [place] artery [place] vs. transplanted heart: [place] heart Associated angina: angina presence unspecified Qualified Code(s): I25.10 - Atherosclerotic heart disease of [place] coronary artery without angina pectoris (4) Diabetes Code(s): E11.9 - TYPE 2 DIABETES MELLITUS WITHOUT COMPLICATIONS (5) HLD (hyperlipidemia) Code(s): E78.5 - HYPERLIPIDEMIA, UNSPECIFIED Qualifiers: Hyperlipidemia type: other hyperlipidemia Qualified Code(s): E78.49 - Other hyperlipidemia; E78.4 - Other hyperlipidemia (6) Renal colic Code(s): N23 - UNSPECIFIED RENAL COLIC (7) S/P CABG x 3 Code(s): Z95.1 - PRESENCE OF AORTOCORONARY BYPASS GRAFT (8) Hypertension Code(s): I10 - ESSENTIAL (PRIMARY) HYPERTENSION Qualifiers: Hypertension type: essential hypertension Qualified Code(s): I10 - Essential (primary) hypertension (9) CVA (cerebrovascular accident) Code(s): I63.9 - CEREBRAL INFARCTION, UNSPECIFIED (10) Prophylactic measure Code(s): Z29.9 - ENCOUNTER FOR PROPHYLACTIC MEASURES, UNSPECIFIED - Discharge Referral Referred to [facility] Med P.C.: No
[2019-05-13] MEDS: traMADol HCL 50 MG TABLET PO PRN (17:15)
[2019-05-13 18:35] VITALS: BP 147/59; PULSE 68
== END 2019-05-13 20:08 | DRG 694 ==
LOC: FER 11:41 → FM/S 15:32 → J4S 05-07 14:09
PROVIDERS: ADMIT Internal Medicine; ATTEND Nurse Practitioner Family
DX: N13.2 Hydronephrosis with renal and ureteral calculous obstruction (principal); I69.354 Hemiplegia and hemiparesis following cerebral infarction affecting left non-dominant side; N17.9 Acute kidney failure, unspecified; R55 Syncope and collapse; I25.10 Atherosclerotic heart disease of native coronary artery without angina pectoris; I10 Essential (primary) hypertension; E78.5 Hyperlipidemia, unspecified; K21.9 Gastro-esophageal reflux disease without esophagitis; F41.9 Anxiety disorder, unspecified; F32.9 Major depressive disorder, single episode, unspecified; E11.9 Type 2 diabetes mellitus without complications; F03.90 Unspecified dementia, unspecified severity, without behavioral disturbance, psychotic disturbance, mood disturbance, and anxiety; R00.8 Other abnormalities of heart beat; Z85.46 Personal history of malignant neoplasm of prostate; Z95.1 Presence of aortocoronary bypass graft; Z87.891 Personal history of nicotine dependence; K59.00 Constipation, unspecified; R26.81 Unsteadiness on feet; T40.2X5A Adverse effect of other opioids, initial encounter; Y92.230 Patient room in hospital as the place of occurrence of the external cause; Z53.09 Procedure and treatment not carried out because of other contraindication; I95.9 Hypotension, unspecified; R00.1 Bradycardia, unspecified
CPT/HCPCS: 36415; 73030-TC-RT-FY; 74018-TC-FY; 74176-TC; 78452-TC; 80053; 81003; 81015; 82550; 82962; 83735; 84100; 84484; 85025; 85027; 85610; 87086; 93005; 93010; 93017; 93306-TC; 97116-GP; 97161-GP; 99284-25; A9502; J1644; J2785; J7030

== ENCOUNTER 2019-06-02 11:49 | Inpatient (IN) | payer OTHER, MEDICARE ==
--- NOTE | 2019-06-02 12:17 | PDOC ---
History of Present Illness - General Chief Complaint: Urinary Problem Stated Complaint: unable to urinate Time Seen by Provider: 06/02/19 11:51 History Source: Patient Exam Limitations: No Limitations - History of Present Illness Initial Comments: 06/02/19 12:18 Mr. Luna is an 83 yo M who presents via EMS to the ER He has a history of CAD (s/p CABG x3 about 20 years ago), HTN, CVA, hyperlipidemia, dementia, and chronic back pain who presents to the emergency department with c/o of difficulty urinating Pt was recently admitted to the hospital due to flank pain and found to have kidney stones in April. Plan had been for procedure and developed bradycardia so his procedure was cancelled. Pt was sent to [facility] Pt returns today because he has had difficulty urinating due to suprapubic pain He is voiding small amounts no fevers or chills No flank pain Past Medical History: CVA (with residual weakness to LE), Dementia (mild) CAD, HTN, Hyperlipdemia, DM GERD, BPH, Prostate cancer treated with seeds, Arthritis PSH: B/L knee Arthrosocopy, CABG (x 3), Prostatectomy MEDS: see DEC Social: former smoker, denies ETOH, drugs ROS: GENERAL/CONSTITUTIONAL: No: fever, chills, weakness HEAD, EYES, EARS, NOSE AND THROAT: No: change in vision CARDIOVASCULAR: No: chest pain, lightheadedness, palpitations RESPIRATORY: No: cough, shortness of breath, wheezing GASTROINTESTINAL: Yes: suprapubic pain No: nausea, vomiting, diarrhea, abdominal GENITOURINARY: Yes: dysuria No: hematuria, frequency, urgency, flank pain. MUSCULOSKELETAL: No: back pain SKIN: No: lesions, pallor, rash or easy bruising. NEUROLOGIC: No: headache, vertigo, paresthesias, weakness ENDOCRINE: No: unexplained weight gain or loss HEMATOLOGIC/LYMPHATIC: No: anemia, easy bleeding, swelling nodes. PE: GENERAL: The patient is in no acute distress, answering questions appears uncomfortable. HEAD: Normal EYES: PERRLA, EOMI ENT: Ears normal, nares patent, Dry mucous membranes. NECK: Normal range of motion, supple without lymphadenopathy LUNGS: Breath sounds equal, clear to auscultation bilaterally. No wheezes HEART: Regular rate and rhythm, normal S1 and S2 ABDOMEN: Soft, suprapubic tenderness to palpation, no distention Bladder scann - 300- 400 cc urine EXTREMITIES: Normal range of motion, no edema. NEUROLOGICAL: Cranial nerves II through XII grossly intact. Normal speech. No focal neurological deficits. MUSCULOSKELETAL: No CVA tenderness SKIN: Warm, Dry, normal turgor, no rashes or lesions noted. 06/02/19 13:15 06/02/19 13:18 Past History - Past Medical History Allergies/Adverse Reactions: Allergies Allergy/AdvReac Type Severity Reaction Status Date / Time Penicillins Allergy Unknown Swelling Verified 06/02/19 11:51 Home Medications: Ambulatory Orders Amlodipine Besylate 10 mg PO DAILY 04/29/19 Aspirin [Aspirin EC] 81 mg PO DAILY 04/29/19 Atorvastatin Ca [Lipitor] 80 mg PO HS 04/29/19 Donepezil HCl 5 tab PO HS 04/29/19 Memantine HCl 10 mg PO BID 04/29/19 Metformin HCl [Glucophage] 500 mg PO DAILY 04/29/19 Sertraline HCl 50 mg PO TID 04/29/19 Vitamin B Complex [B Complex] 1 each PO DAILY 04/29/19 Tamsulosin HCl [Flomax -] 0.4 mg PO DAILY@0830 30 Days #30 cap.er.24h 05/04/19 Docusate Sodium [Colace -] 100 mg PO BID capsule 05/12/19 Polyethylene Glycol 3350 [Miralax 119 gm Btl -] 17 gm PO DAILY bottle 05/12/19 Sennosides [Senna -] 2 tab PO HS tablet 05/12/19 Nitrofurantoin Monohyd/M-Cryst [Macrobid -] 100 mg PO BID #20 capsule 06/03/19 Anemia: No Asthma: Yes Cancer: Yes (PROSTATE) Cardiac Disorders: Yes (CABG x 3, CAD) CVA: Yes COPD: No CHF: No Dementia: Yes Diabetes: Yes GI Disorders: No Disorders: No HTN: Yes Hypercholesterolemia: Yes Liver Disease: No Psychiatric Problems: Yes (DEPRESSION) Seizures: No Thyroid Disease: No - Surgical History Abdominal Surgery: No Appendectomy: No Cardiac Surgery: Yes (TRIPLE BYPASS) Cholecystectomy: No Lung Surgery: No Neurologic Surgery: No Orthopedic Surgery: No - Immunization History Td Vaccination: Yes TDAP Vaccination: No Immunization Up to Date: (UNSURE) - Suicide/Smoking/Psychosocial Hx Smoking Status: Yes Smoking History: Former smoker Have you smoked in the past 12 months: No Number of Cigarettes Smoked Daily: 0 If you are a former smoker, when did you quit?: 2 yrs Information on smoking cessation initiated: No 'Breaking Loose' booklet given: 06/22/15 Hx Alcohol Use: No Drug/Substance Use Hx: No Substance Use Type: None Hx Substance Use Treatment: No *Physical Exam - Vital Signs Last Vital Signs Temp Pulse Resp BP Pulse Ox 98.3 F 86 16 189/107 H 100 06/02/19 11:50 06/02/19 11:50 06/02/19 11:50 06/02/19 11:50 06/02/19 11:50 ED Treatment Course - LABORATORY CBC & Chemistry Diagram: 06/03/19 07:12 06/03/19 07:12 Medical Decision Making - Medical Decision Making 83 yo M presenting with dysuria History significant for recent admission for kidney stone which was not addressed due to vasovagal episodes (likely secondary to pain) Based on xray, pt passed stone unclear if symptoms are due to Recurrent kidney stone Musculoskeletal pain UTI Pyelonephrisit Will do: Labs UA Spiral CT 06/02/19 13:27 Pt was very challenging cathether placement as he screams in pain 100 cc urine obtained from bladder Laboratory Tests 06/02/19 12:55 Urine Appearance Cloudy Urine Blood 3+ H Urine Nitrite Negative Ur Leukocyte Esterase Trace H 06/02/19 13:28 06/02/19 13:32 Laboratory Tests 05/13/19 06/02/19 06/02/19 06:15 12:55 12:57 WBC 9.3 8.0 Hgb 10.3 L 10.6 L Hct 30.4 L 31.0 L Plt Count 305 203 Urine RBC >100 Urine WBC 10-20 06/02/19 14:37 CT - bilateral hydronephrosis, no obstructing stones seen, previously seen stone has passed EKG - NSR rate of 71 bpm, axis nml, intervals abn, pr: 144ms, QRS: 80ms, QTc: 512ms (prolonged), no st elevation or depression, (+) PVC Will await cultures prior to starting abx (can not give pcn, pt QTc prolonged and can not give floxacins) Clinical Impression: bilateral hydronephrosis Possible UTI? vs cystitis? Urinary retention? *DC/Admit/Observation/Transfer Diagnosis at time of Disposition: Hydronephrosis Qualifiers: Hydronephrosis type: other Qualified Code(s): N13.39 - Other hydronephrosis - Discharge Dispostion Disposition: PHYSICAL REHABILATION FACILITY Condition at time of disposition: Improved Decision to Admit order: Yes - Referrals - Patient Instructions - Post Discharge Activity
[2019-06-02] MEDS ORDERED: LIDOCAINE HCL 2% JELLY 10 ML CARTRIDGE UR ONE (12:26)
[2019-06-02 13:20] LABS: BASO % 0.3 % (0-2.0); EOS % 0.2 % (0-4.5); HEMOGLOBIN 10.6 GM/dl (11.7-16.9); LYMPH % 13.2 % (8-40); MCH 30.2 pg (25.7-33.7); MCHC 34.2 g/dl (32.0-35.9); MEAN CELL VOLUME 88.4 fl (80-96); MEAN PLT VOLUME 8.9 fl (7.5-11.1); MONO % 6.6 % (3.8-10.2); NEUT % 79.7 % (42.8-82.8); PLATELET COUNT 203 K/MM3 (134-434); RBC 3.51 M/mm3 (4.00-5.60); RDW 15.2 % (11.9-15.9)
[2019-06-02 13:41] LABS: ALBUMIN 3.5 g/dl (3.4-5.0); BILIRUBIN,TOTAL 0.7 mg/dl (0.2-1); CALCIUM 9.2 mg/dl (8.5-10); CREATININE 1.1 mg/dl (0.55-1.3); POTASSIUM 3.3 mmol/L (3.5-5.1)
--- NOTE | 2019-06-02 15:34 | HP ---
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 Patient was sent from [facility] because patient complained of difficulty urinating and suprapubic pain. There is no report of fever, sweats, chills. No report of pain. This is patient's third hospitalization in a month related difficulties. ER course was notable for: (1) BP 189/107 (2) Pyuria Recent Travel: No PAST MEDICAL HISTORY: Hypertension Hyperlipidemia Coronary artery disease CVA Type II NIDDM Prostatic enlargment Prostate cancer x 20 years (seed therapy) Dementia PAST SURGICAL HISTORY: CABG Social History: Smoking: quit 2015, 1-2ppd x 70 years Alcohol: social Drugs: no Family History: mother age 62, HTN, CVA father age 50s, [place] brother late 40s, smoker, ? [place] brother alive with heart murmur one daughter-healthy Allergies Penicillins Allergy (Unknown, Verified 06/02/19 11:51) Swelling HOME MEDICATIONS: Home Medications Medication Instructions Recorded Amlodipine Besylate 10 mg PO DAILY 04/29/19 Aspirin [Aspirin EC] 81 mg PO DAILY 04/29/19 Atorvastatin Ca [Lipitor] 80 mg PO HS 04/29/19 Donepezil HCl 5 tab PO HS 04/29/19 Memantine HCl 10 mg PO BID 04/29/19 Metformin HCl [Glucophage] 500 mg PO DAILY 04/29/19 Sertraline HCl 50 mg PO TID 04/29/19 Vitamin B Complex [B Complex] 1 each PO DAILY 04/29/19 Tamsulosin HCl [Flomax -] 0.4 mg PO DAILY@0830 30 Days #30 05/04/19 cap.er.24h Docusate Sodium [Colace -] 100 mg PO BID capsule 05/12/19 Polyethylene Glycol 3350 [Miralax 17 gm PO DAILY bottle 05/12/19 119 gm Btl -] Sennosides [Senna -] 2 tab PO HS tablet 05/12/19 REVIEW OF SYSTEMS CONSTITUTIONAL: Absent: fever, chills, diaphoresis, generalized weakness, malaise, loss of appetite, weight change HEENT: Absent: rhinorrhea, nasal congestion, throat pain, throat swelling, difficulty swallowing, mouth swelling, ear pain, eye pain, visual changes CARDIOVASCULAR: Absent: chest pain, syncope, palpitations, irregular heart rate, lightheadedness , peripheral edema RESPIRATORY: Absent: cough, shortness of breath, dyspnea with exertion, orthopnea, wheezing, stridor, hemoptysis GASTROINTESTINAL: Absent: abdominal pain, abdominal distension, nausea, vomiting, diarrhea, constipation, melena, hematochezia GENITOURINARY: +difficulty urinating, dysuria Absent: dysuria, frequency, urgency, hesitancy, hematuria, flank pain, genital pain MUSCULOSKELETAL: Absent: myalgia, arthralgia, joint swelling, back pain, neck pain SKIN: Absent: rash, itching, pallor HEMATOLOGIC/IMMUNOLOGIC: Absent: easy bleeding, easy bruising, lymphadenopathy, frequent infections ENDOCRINE: Absent: unexplained weight gain, unexplained weight loss, heat intolerance, cold intolerance NEUROLOGIC: Absent: headache, focal weakness or paresthesias, dizziness, unsteady gait, seizure, mental status changes, bladder or bowel incontinence PSYCHIATRIC: Absent: anxiety, depression, suicidal or homicidal ideation, hallucinations. PHYSICAL EXAMINATION Vital Signs - 24 hr 06/02/19 06/02/19 11:50 13:06 Temperature 98.3 F Pulse Rate 86 Pulse Rate [ 65 Left] Respiratory 16 Rate Blood Pressure 189/107 H Blood Pressure 148/60 [Right Arm] O2 Sat by Pulse 100 Oximetry (%) GENERAL: Awake, alert, oriented x 2. Complaining of burning pain when urinating. HEAD: Normal with no signs of trauma. EYES: Pupils equal, round and reactive to light, extraocular movements intact, sclera anicteric, conjunctiva clear. No lid lag. LUNGS: Breath sounds equal, clear to auscultation bilaterally. No wheezes, and no crackles. No accessory muscle use. HEART: Regular rate and rhythm, S1 and S2 ABDOMEN: Soft, nontender, not distended MUSCULOSKELETAL: Normal range of motion at all joints. No bony deformities or tenderness. No CVA tenderness. UPPER EXTREMITIES: 2+ pulses, warm, well-perfused. No cyanosis. No clubbing. No peripheral edema. LOWER EXTREMITIES: 2+ pulses, warm, well-perfused. No calf tenderness. No peripheral edema. NEUROLOGICAL: Cranial nerves II-XII intact. Normal speech. Laboratory Results - last 24 hr 08/06/02/19 06/02/19 12:55 12:57 12:57 WBC 8.0 RBC 3.51 L Hgb 10.6 L Hct 31.0 L MCV 88.4 MCH 30.2 MCHC 34.2 RDW 15.2 Plt Count 203 MPV 8.9 Absolute Neuts (auto) 6.4 Neutrophils % 79.7 Lymphocytes % 13.2 D Monocytes % 6.6 Eosinophils % 0.2 D Basophils % 0.3 Sodium 139 Potassium 3.3 L Chloride 103 Carbon Dioxide 25 Anion Gap 11 BUN 25.0 H Creatinine 1.1 Est GFR (CKD-EPI)AfAm 72.58 Est GFR (CKD-EPI)NonAf 62.62 Random Glucose 115 H Calcium 9.2 Total Bilirubin 0.7 AST 20 ALT 18 Alkaline Phosphatase 63 D Total Protein 7.0 Albumin 3.5 Urine Color Yellow Urine Appearance Cloudy Urine pH 6.0 Urine Protein 1+ H Urine Glucose (UA) Negative Urine Ketones Negative Urine Blood 3+ H Urine Nitrite Negative Urine Bilirubin Negative Urine Urobilinogen 1.0 Ur Leukocyte Esterase Trace H Urine RBC >100 Urine WBC 10-20 ASSESSMENT/PLAN 83 year-old male with a PMH significant for HTN, HLD, CAD s/p CABG3v, CVA, Type II NIDDM, prostatic enlargement, prostate cancer x 20 years, and dementia. Patient was sent from [facility] because patient complained of difficulty urinating and suprapubic pain. There is no report of fever, sweats, chills. No report of pain. This is patient's third hospitalization in a month related difficulties. Hospitalized 04/28-05/04 for a partially obstructing left ureter stone and moderate left hydronephrosis. Patient was discharged to follow up with urology. Readmitted 05/05-05/13 for worsening hydro. Stone eventually passed prior to intervention and patient discharged. Patient now returns on 06/02 for difficulty urinating, dysuria, and suprapubic pain. Dysuria --mild pyuria, symptomatic --start Bactrim DS Urinary retention --chatman placed but pulled out by patient; voiding freely at this time --monitor I&Os --renal function stable, continue to monitor Hypertension --BP elevated on admission, continue home amlodipine Hyperlipidemia --continue Lipitor Coronary artery disease CVA --continue amlodipine, Lipitor, ASA Type II NIDDM --Novolog sliding scale coverage Prostatic enlargement Prostate cancer remote --continue Flomax Dementia --contnue sertraline, Namenda, Aricept FEN Fluids: NS @83mL/hr Electrolytes: replete as indicated Nutrition: low sodium, diabetic DVT prophylaxis: subq lovenox Physical therapy Dispo: continues to require inpatient care. Full code. Visit type - Emergency Visit Emergency Visit: Yes ED Registration Date: 06/02/19 Care time: The patient presented to the Emergency Department on the above date and was hospitalized for further evaluation of their emergent condition. - New Patient This patient is new to me today: Yes Date on this admission: 06/07/19 - Critical Care Critical Care patient: No
[2019-06-02] MEDS ORDERED: ACETAMINOPHEN 325 MG TABLET (FP) PO PRN (15:58)
[2019-06-02] MEDS ORDERED: SODIUM CHLORIDE 1,000 ML IV SCH (16:00)
[2019-06-02] MEDS ORDERED: ACETAMINOPHEN 1000 MG/100 ML VIAL (NON FORMULARY) IVPB ONE (16:27)
[2019-06-02] MEDS ORDERED: ACETAMINOPHEN INJECTION 100 ML IVPB ONE (16:27)
[2019-06-02] MEDS: INSULIN SLIDING SCALE (NOVOLOG) 1 VIAL SQ SCH ×2 (17:29→21:24)
[2019-06-02 18:30] VITALS: BMI 26.9
[2019-06-02] MEDS: MEMANTINE HCL 10 MG TABLET (FP) PO SCH (21:29)
[2019-06-02] MEDS: SERTRALINE HCL 50 MG TABLET (FP) PO SCH (21:29)
[2019-06-02] MEDS ORDERED: DONEPEZIL HCL 5 MG TABLET (FP) PO SCH (22:00)
[2019-06-02] MEDS ORDERED: SENNOSIDES/DOCUSATE COMBO (SENNA PLUS) TABLET (UD) PO SCH (22:00)
[2019-06-02] MEDS ORDERED: ATORVASTATIN CA 80 MG TABLET (FP) PO SCH (22:00)
[2019-06-03] MEDS: SERTRALINE HCL 50 MG TABLET (FP) PO SCH (06:39)
[2019-06-03] MEDS: INSULIN SLIDING SCALE (NOVOLOG) 1 VIAL SQ SCH ×2 (06:40→13:13)
[2019-06-03 06:47] VITALS: BP 158/72; PULSE 62; TEMP 98.4
[2019-06-03 07:54] LABS: BASO % 0.3 % (0-2.0); EOS % 2.6 % (0-4.5); HEMATOCRIT 29.2 % (35.4-49); HEMOGLOBIN 9.9 GM/dl (11.7-16.9); LYMPH % 24.3 % (8-40); MCH 30.2 pg (25.7-33.7); MCHC 33.9 g/dl (32.0-35.9); MEAN CELL VOLUME 88.9 fl (80-96); MEAN PLT VOLUME 8.8 fl (7.5-11.1); MONO % 10.2 % (3.8-10.2); NEUT % 62.6 % (42.8-82.8); PLATELET COUNT 177 K/MM3 (134-434); RBC 3.29 M/mm3 (4.00-5.60); RDW 14.8 % (11.9-15.9); WHITE BLOOD COUNT 5.6 K/mm3 (4.0-10.8)
[2019-06-03 07:57] LABS: INR 1.17 (0.82-1.09); PROTHROMBIN TIME (PATIENT) 13.1 SEC (10.2-13.0)
--- NOTE | 2019-06-03 08:01 | PN ---
Physical Exam: SUBJECTIVE: Patient seen and examined OBJECTIVE: Vital Signs Period Temp Pulse Resp BP Sys/Guadalupe Pulse Ox Last 24 Hr 97.9 F-98.9 F 62-86 16-19 114-189/46-107 94-100 GENERAL: The patient is awake, alert, and fully oriented, in no acute distress. HEAD: Normal with no signs of trauma. EYES: PERRL, extraocular movements intact, sclera anicteric, conjunctiva clear. No ptosis. ENT: Ears normal, nares patent, oropharynx clear without exudates, moist mucous membranes. NECK: Trachea midline, full range of motion, supple. LUNGS: Breath sounds equal, clear to auscultation bilaterally, no wheezes, no crackles, no accessory muscle use. HEART: Regular rate and rhythm, S1, S2 without murmur, rub or gallop. ABDOMEN: Soft, nontender, nondistended, normoactive bowel sounds, no guarding, no rebound, no hepatosplenomegaly, no masses. EXTREMITIES: 2+ pulses, warm, well-perfused, no edema. NEUROLOGICAL: Cranial nerves II through XII grossly intact. Normal speech, gait not observed. PSYCH: Normal mood, normal affect. SKIN: Warm, dry, normal turgor, no rashes or lesions noted Laboratory Results - last 24 hr 06/02/19 06/02/19 06/02/19 12:55 12:57 12:57 WBC 8.0 RBC 3.51 L Hgb 10.6 L Hct 31.0 L MCV 88.4 MCH 30.2 MCHC 34.2 RDW 15.2 Plt Count 203 MPV 8.9 Absolute Neuts (auto) 6.4 Neutrophils % 79.7 Lymphocytes % 13.2 D Monocytes % 6.6 Eosinophils % 0.2 D Basophils % 0.3 Sodium 139 Potassium 3.3 L Chloride 103 Carbon Dioxide 25 Anion Gap 11 BUN 25.0 H Creatinine 1.1 Est GFR (CKD-EPI)AfAm 72.58 Est GFR (CKD-EPI)NonAf 62.62 POC Glucometer Random Glucose 115 H Calcium 9.2 Total Bilirubin 0.7 AST 20 ALT 18 Alkaline Phosphatase 63 D Total Protein 7.0 Albumin 3.5 Urine Color Yellow Urine Appearance Cloudy Urine pH 6.0 Urine Protein 1+ H Urine Glucose (UA) Negative Urine Ketones Negative Urine Blood 3+ H Urine Nitrite Negative Urine Bilirubin Negative Urine Urobilinogen 1.0 Ur Leukocyte Esterase Trace H Urine RBC >100 Urine WBC 10-20 06/02/19 06/02/19 06/03/19 17:22 21:17 06:37 WBC RBC Hgb Hct MCV MCH MCHC RDW Plt Count MPV Absolute Neuts (auto) Neutrophils % Lymphocytes % Monocytes % Eosinophils % Basophils % Sodium Potassium Chloride Carbon Dioxide Anion Gap BUN Creatinine Est GFR (CKD-EPI)AfAm Est GFR (CKD-EPI)NonAf POC Glucometer 126 134 123 Random Glucose Calcium Total Bilirubin AST ALT Alkaline Phosphatase Total Protein Albumin Urine Color Urine Appearance Urine pH Urine Protein Urine Glucose (UA) Urine Ketones Urine Blood Urine Nitrite Urine Bilirubin Urine Urobilinogen Ur Leukocyte Esterase Urine RBC Urine WBC Active Medications Generic Name Dose Route Start Last Admin Trade Name Freq PRN Reason Stop Dose Admin Acetaminophen 650 mg 06/02/19 15:58 Tylenol - PO Q6H PRN PAIN LEVEL 1-5 Amlodipine Besylate 10 mg 06/03/19 10:00 Norvasc - PO DAILY [facility] Aspirin 81 mg 06/03/19 10:00 Ecotrin - PO DAILY RUTH Atorvastatin Calcium 80 mg 06/02/19 22:00 06/02/19 21:28 Lipitor - PO 80 mg HS RUTH Administration Donepezil HCl 5 mg 06/02/19 22:00 06/02/19 21:29 Aricept - PO 5 mg HS RUTH Administration Enoxaparin Sodium 40 mg 06/03/19 10:00 Lovenox - SQ DAILY [facility] Sodium Chloride 1,000 mls @ 83 mls/hr 06/02/19 16:00 06/02/19 16:20 Normal Saline - IV 83 mls/hr ASDIR RUTH Administration Insulin Aspart 1 vial 06/02/19 16:30 06/03/19 06:40 Novolog Vial Sliding Scale - SQ Not Given ACHS [facility] Protocol Memantine 10 mg 06/02/19 22:00 06/02/19 21:29 Namenda - PO 10 mg BID RUTH Administration Polyethylene Glycol 17 gm 06/03/19 10:00 Miralax (For Daily Use) - PO DAILY RUTH Senna/Docusate Sodium 2 tablet 06/02/19 22:00 06/02/19 21:29 Pericolace - PO 06/03/19 16:06 2 tablet HS RUTH Administration Sertraline HCl 50 mg 06/02/19 22:00 06/03/19 06:39 Zoloft - PO 50 mg TID [facility] Administration Tamsulosin HCl 0.4 mg 06/03/19 08:30 Flomax - PO DAILY@0830 [facility] ASSESSMENT/PLAN:
[2019-06-03 08:04] LABS: BILIRUBIN,TOTAL 0.5 mg/dl (0.2-1); CALCIUM 8.6 mg/dl (8.5-10); CREATININE 0.9 mg/dl (0.55-1.3); MAGNESIUM 1.4 mg/dL (1.8-2.4); POTASSIUM 3.4 mmol/L (3.5-5.1)
[2019-06-03 08:05] LABS: ACTIVATED PTT 26.5 SECONDS (25.2-36.5)
[2019-06-03] MEDS ORDERED: TAMSULOSIN HCL 0.4 MG CAP PO SCH (08:30)
[2019-06-03] MEDS ORDERED: MAGNESIUM SULF 50% (8.12 MEQ/2 ML-1 GM VIAL) IVPB ONE (09:30)
[2019-06-03] MEDS: MEMANTINE HCL 10 MG TABLET (FP) PO SCH (09:35)
[2019-06-03] MEDS ORDERED: ENOXAPARIN NA (PORCINE) 40 MG/0.4 ML DISP.SYRIN SQ SCH (10:00)
[2019-06-03] MEDS ORDERED: POLYETHYLENE GLYCOL 3350 119 GM BTL PO SCH (10:00)
[2019-06-03] MEDS ORDERED: ASPIRIN COATED 81 MG TABLET.EC PO SCH (10:00)
[2019-06-03] MEDS ORDERED: amLODIPine BESYLATE 10 MG TABLET (FP) PO SCH (10:00)
[2019-06-03] MEDS ORDERED: SULFAMETHOXAZOLE/TRIMETHOPRIM 800MG/160MG D.S. TABLET PO SCH (10:00)
--- NOTE | 2019-06-03 10:33 | EKG ---
Test Reason : Blood Pressure : / mmHG Vent. Rate : 071 BPM Atrial Rate : 071 BPM P-R Int : 144 ms QRS Dur : 080 ms QT Int : 472 ms P-R-T Axes : 036 035 042 degrees QTc Int : 512 ms SINUS RHYTHM WITH FREQUENT PREMATURE VENTRICULAR COMPLEXES NONSPECIFIC ST ABNORMALITY PROLONGED QT ABNORMAL ECG WHEN COMPARED WITH ECG OF 12-MAY-2019 20:54, NO SIGNIFICANT CHANGE WAS FOUND Confirmed by MARQUISE ROSARIO, JUDITH ([id number]) on 06/03/2019 10:33:20 AM Referred By: MARIA VICTORIA PINK Confirmed By:JUDITH CAMARILLO MD
[2019-06-03] MEDS ORDERED: POTASSIUM CHLORIDE TABS 20 MEQ TABLET.ER (FP) PO ONE (11:00)
--- NOTE | 2019-06-03 12:33 | DS ---
Physical Exam: SUBJECTIVE: Patient seen and examined OBJECTIVE: Vital Signs Period Temp Pulse Resp BP Sys/Guadalupe Pulse Ox Last 24 Hr 97.9 F-98.9 F 62-78 16-19 114-182/46-80 94-100 PHYSICAL EXAM GENERAL: The patient is awake, alert, and fully oriented, in no acute distress. Irritable. LUNGS: Breath sounds equal, clear to auscultation bilaterally, no wheezes, no crackles, no accessory muscle use. HEART: Regular rate and rhythm, S1, S2 ABDOMEN: Soft, nontender, nondistended, normoactive bowel sounds, no guarding, no rebound tenderness; no CVA tenderness EXTREMITIES: 2+ pulses, warm, well-perfused, no edema. NEUROLOGICAL: Cranial nerves II through XII grossly intact. Normal speech, steady gait with walker Psych: Irritable. Alternating between periods of calm and agitation, confronting staff. LABS Laboratory Results - last 24 hr 06/02/19 06/02/19 06/02/19 12:55 12:57 12:57 WBC 8.0 RBC 3.51 L Hgb 10.6 L Hct 31.0 L MCV 88.4 MCH 30.2 MCHC 34.2 RDW 15.2 Plt Count 203 MPV 8.9 Absolute Neuts (auto) 6.4 Neutrophils % 79.7 Lymphocytes % 13.2 D Monocytes % 6.6 Eosinophils % 0.2 D Basophils % 0.3 PT with INR INR PTT (Actin FS) Sodium 139 Potassium 3.3 L Chloride 103 Carbon Dioxide 25 Anion Gap 11 BUN 25.0 H Creatinine 1.1 Est GFR (CKD-EPI)AfAm 72.58 Est GFR (CKD-EPI)NonAf 62.62 POC Glucometer Random Glucose 115 H Calcium 9.2 Magnesium Total Bilirubin 0.7 AST 20 ALT 18 Alkaline Phosphatase 63 D Total Protein 7.0 Albumin 3.5 Urine Color Yellow Urine Appearance Cloudy Urine pH 6.0 Urine Protein 1+ H Urine Glucose (UA) Negative Urine Ketones Negative Urine Blood 3+ H Urine Nitrite Negative Urine Bilirubin Negative Urine Urobilinogen 1.0 Ur Leukocyte Esterase Trace H Urine RBC >100 Urine WBC 10-20 06/02/19 06/02/19 06/03/19 17:22 21:17 06:37 WBC RBC Hgb Hct MCV MCH MCHC RDW Plt Count MPV Absolute Neuts (auto) Neutrophils % Lymphocytes % Monocytes % Eosinophils % Basophils % PT with INR INR PTT (Actin FS) Sodium Potassium Chloride Carbon Dioxide Anion Gap BUN Creatinine Est GFR (CKD-EPI)AfAm Est GFR (CKD-EPI)NonAf POC Glucometer 126 134 123 Random Glucose Calcium Magnesium Total Bilirubin AST ALT Alkaline Phosphatase Total Protein Albumin Urine Color Urine Appearance Urine pH Urine Protein Urine Glucose (UA) Urine Ketones Urine Blood Urine Nitrite Urine Bilirubin Urine Urobilinogen Ur Leukocyte Esterase Urine RBC Urine WBC 06/03/19 06/03/19 06/03/19 07:12 07:12 07:12 WBC 5.6 RBC 3.29 L Hgb 9.9 L Hct 29.2 L MCV 88.9 MCH 30.2 MCHC 33.9 RDW 14.8 Plt Count 177 MPV 8.8 Absolute Neuts (auto) 3.5 Neutrophils % 62.6 D Lymphocytes % 24.3 D Monocytes % 10.2 Eosinophils % 2.6 D Basophils % 0.3 PT with INR 13.1 H INR 1.17 PTT (Actin FS) 26.5 Sodium 141 Potassium 3.4 L Chloride 103 Carbon Dioxide 29 Anion Gap 9 BUN 15.0 Creatinine 0.9 Est GFR (CKD-EPI)AfAm 92.51 Est GFR (CKD-EPI)NonAf 79.82 POC Glucometer Random Glucose 130 H Calcium 8.6 Magnesium 1.4 L Total Bilirubin 0.5 AST 16 ALT 14 Alkaline Phosphatase 52 D Total Protein 6.0 L Albumin 3.0 L Urine Color Urine Appearance Urine pH Urine Protein Urine Glucose (UA) Urine Ketones Urine Blood Urine Nitrite Urine Bilirubin Urine Urobilinogen Ur Leukocyte Esterase Urine RBC Urine WBC HOSPITAL COURSE: Date of Admission:06/02/19 Date of Discharge: 06/03/19 Pre hospital course 83 year-old male with a PMH significant for HTN, HLD, 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 Patient was sent from [facility] because patient complained of difficulty urinating and suprapubic pain. There is no report of fever, sweats, chills. No report of pain. This is patient's third hospitalization in a month. Hospitalized 04/28-05/04 for a partially obstructing left ureter stone and moderate left hydronephrosis. Patient was discharged to follow up with urology. Readmitted 05/05-05/13 for worsening hydro. Stone eventually passed prior to intervention and patient discharged. Patient now returns on 06/02 for difficulty urinating and suprapubic pain. ER course (1) BP 189/107 (2) Pyuria Subsequent hospital course CTA imaging: left ureteral stone seen previously no longer seen; mild to moderate bilateral hydro and hydroureter with no obstrucing stones; possible cystitis Young was placed in the ED but quickly pulled out by patient. He voided freely thereafter. Renal function remained stable. Patient complained of dysuria on admission and was started on Bactrim DS. Patient reported resolution of dysuria after first dose. Ambulated 300 feet with PT on date of discharge. Patient to follow up with urologist Dr. Badillo who treated patient during previous hospital visits. Minutes to complete discharge: 35 Discharge Summary Reason For Visit: HYDRONEPHROSIS WITH RENAL AND URETERAL CALCULOUS O Current Active Problems Hydronephrosis (Acute) Condition: Improved - Instructions Diet, Activity, Other Instructions: The patient is being discharged on Bactrim DS for cystitis. He should be given Bactrim DS BID x 10 days. The patient MUST be seen by a urologist. He has an appointment with Dr. Miguel Badillo on June 22, 2019 at 11:45am. Please note the appointment is at Dr. Badillo's office located at [address] [place] [address], [facility] [address]. Please make sure patient is transported to this appointment. Referrals: Miguel Malin MD [Staff Physician] - 06/22/19 11:45 am (Appointment is at Dr. Malin's [facility] office. [address] [place] [address]) Disposition: INTERMEDIATE FACILITY - Home Medications Comprehensive Discharge Medication List: Ambulatory Orders Amlodipine Besylate 10 mg PO DAILY 04/29/19 Aspirin [Aspirin EC] 81 mg PO DAILY 04/29/19 Atorvastatin Ca [Lipitor] 80 mg PO HS 04/29/19 Donepezil HCl 5 tab PO HS 04/29/19 Memantine HCl 10 mg PO BID 04/29/19 Metformin HCl [Glucophage] 500 mg PO DAILY 04/29/19 Sertraline HCl 50 mg PO TID 04/29/19 Vitamin B Complex [B Complex] 1 each PO DAILY 04/29/19 Tamsulosin HCl [Flomax -] 0.4 mg PO DAILY@0830 30 Days #30 cap.er.24h 05/04/19 Docusate Sodium [Colace -] 100 mg PO BID capsule 05/12/19 Polyethylene Glycol 3350 [Miralax 119 gm Btl -] 17 gm PO DAILY bottle 05/12/19 Sennosides [Senna -] 2 tab PO HS tablet 05/12/19 This patient is new to me today: No Emergency Visit: Yes ED Registration Date: 06/02/19 Care time: The patient presented to the Emergency Department on the above date and was hospitalized for further evaluation of their emergent condition. Critical Care patient: No - Discharge Referral Referred to [facility] Med P.C.: No
== END 2019-06-03 15:00 | DRG 694 ==
LOC: FER 11:49 → FM/S 16:15
PROVIDERS: ADMIT Internal Medicine; ATTEND Nurse Practitioner Acute Care
PROC: 0T9B70Z Drainage of Bladder with Drainage Device, Via Natural or Artificial Opening (ICD-10-PCS; principal; 2019-06-02)
DX: N13.2 Hydronephrosis with renal and ureteral calculous obstruction (principal); I69.354 Hemiplegia and hemiparesis following cerebral infarction affecting left non-dominant side; I10 Essential (primary) hypertension; E78.5 Hyperlipidemia, unspecified; F03.90 Unspecified dementia, unspecified severity, without behavioral disturbance, psychotic disturbance, mood disturbance, and anxiety; M54.9 Dorsalgia, unspecified; Z95.1 Presence of aortocoronary bypass graft; Z85.46 Personal history of malignant neoplasm of prostate; Z87.891 Personal history of nicotine dependence; Z90.79 Acquired absence of other genital organ(s); K21.9 Gastro-esophageal reflux disease without esophagitis; I25.10 Atherosclerotic heart disease of native coronary artery without angina pectoris; R33.9 Retention of urine, unspecified
CPT/HCPCS: 36415; 74176-TC; 80053; 81003; 81015; 82962; 83735; 85025; 85610; 85730; 87040; 87086; 93005; 97116-GP; 97162-GP; 99285-25; J0131; J7030

== ENCOUNTER 2022-01-10 20:23 | Observation (INO) | payer OTHER, MEDICARE ==
[2022-01-10 20:35] VITALS: BMI 25.4
[2022-01-10 23:22] LABS: BILIRUBIN,TOTAL 0.5 mg/dl (0.2-1); CALCIUM 10.3 mg/dl (8.5-10); CREATININE 1.5 mg/dl (0.55-1.3); TOT PROT 7.1 g/dl (6.4-8.2)
[2022-01-10] MEDS: SODIUM CHLORIDE 1,000 ML IV ONE (23:35)
[2022-01-10 23:50] LABS: BASO % 0.2 % (0-2.0); HEMATOCRIT 37.1 % (35.4-49); HEMOGLOBIN 12.4 GM/dL (11.7-16.9); LYMPH % 5.7 % (8-40); MCH 29.5 pg (25.7-33.7); MCHC 33.5 g/dl (32.0-35.9); MEAN CELL VOLUME 88.3 fl (80-96); MEAN PLT VOLUME 8.5 fl (7.5-11.1); MONO % 6.1 % (3.8-10.2); PLATELET COUNT 228 10^3/uL (134-434); RDW 14.7 % (11.9-15.9); WHITE BLOOD COUNT 15.1 K/mm3 (4.0-10.0)
[2022-01-11] MEDS ORDERED: ACETAMINOPHEN 325 MG TABLET (FP) PO PRN (01:44)
[2022-01-11] MEDS ORDERED: LACTULOSE 20 GM/30 ML UDC (FOR ORAL USE ONLY) PO ONE (01:53)
[2022-01-11] MEDS ORDERED: SERTRALINE HCL 50 MG TABLET (FP) PO SCH ×2 (06:00→10:00)
[2022-01-11] MEDS: INSULIN SLIDING SCALE (NOVOLOG) 1 VIAL SQ SCH ×2 (06:39→11:08)
[2022-01-11] MEDS ORDERED: SODIUM CHLORIDE 500 ML IV STA ×2 (07:48→09:09)
[2022-01-11 08:05] LABS: INR 1.08 (0.83-1.09); PROTHROMBIN TIME (PATIENT) 12.4 SEC (9.7-13.0)
[2022-01-11 08:08] LABS: ACTIVATED PTT 28.5 SECONDS (25.2-36.5)
[2022-01-11 08:12] LABS: CALCIUM 9.8 mg/dl (8.5-10); CREATININE 1.1 mg/dl (0.55-1.3)
[2022-01-11 08:24] LABS: BASO % 0.2 % (0-2.0); EOS % 0.1 % (0-4.5); HEMATOCRIT 34.8 % (35.4-49); HEMOGLOBIN 11.6 GM/dL (11.7-16.9); LYMPH % 10.4 % (8-40); MCH 29.4 pg (25.7-33.7); MCHC 33.3 g/dl (32.0-35.9); MEAN CELL VOLUME 88.2 fl (80-96); MEAN PLT VOLUME 8.8 fl (7.5-11.1); MONO % 6.5 % (3.8-10.2); NEUT % 82.8 % (42.8-82.8); PLATELET COUNT 215 10^3/uL (134-434); RBC 3.94 M/mm3 (4.00-5.60); RDW 14.5 % (11.9-15.9); WHITE BLOOD COUNT 12.4 K/mm3 (4.0-10.0)
[2022-01-11] MEDS: SODIUM CHLORIDE 1,000 ML IV ONE (09:10)
[2022-01-11] MEDS ORDERED: POTASSIUM CHLORIDE TABS 20 MEQ TABLET.ER (FP) PO ONE (09:30)
[2022-01-11] MEDS ORDERED: LISINOPRIL 20 MG TABLET PO SCH (10:00)
[2022-01-11] MEDS ORDERED: CHOLECALCIFEROL (VIT D3) 1,000 UNIT (25 MCG) TABLET PO SCH (10:00)
[2022-01-11] MEDS ORDERED: amLODIPine BESYLATE 10 MG TABLET (FP) PO SCH (10:00)
[2022-01-11] MEDS ORDERED: MEMANTINE HCL 10 MG TABLET (FP) PO SCH (10:00)
[2022-01-11] MEDS ORDERED: CHLORTHALIDONE 25 MG TABLET PO SCH (10:00)
[2022-01-11] MEDS ORDERED: ASPIRIN COATED 81 MG TABLET.EC PO SCH (10:00)
[2022-01-11] MEDS ORDERED: DONEPEZIL HCL 5 MG TABLET (FP) PO SCH ×3 (10:00→22:00)
[2022-01-11 10:11] VITALS: BP 115/50; PULSE 63; TEMP 98.6
[2022-01-11] MEDS ORDERED: ATORVASTATIN CA 80 MG TABLET (FP) PO SCH (22:00)
== END 2022-01-11 13:46 | disposition home or self-care (01) ==
LOC: FER 20:23 → FM/S 01-11 02:08
PROVIDERS: ADMIT Internal Medicine; ATTEND Nurse Practitioner Acute Care
PROC: 3E0337Z Introduction of Electrolytic and Water Balance Substance into Peripheral Vein, Percutaneous Approach (ICD-10-PCS; principal; 2022-01-11)
DX: K59.00 Constipation, unspecified (principal); F32.9 Major depressive disorder, single episode, unspecified; I11.9 Hypertensive heart disease without heart failure; F03.90 Unspecified dementia, unspecified severity, without behavioral disturbance, psychotic disturbance, mood disturbance, and anxiety; I25.10 Atherosclerotic heart disease of native coronary artery without angina pectoris; Z95.1 Presence of aortocoronary bypass graft; Z85.46 Personal history of malignant neoplasm of prostate; N20.0 Calculus of kidney; Z86.73 Personal history of transient ischemic attack (TIA), and cerebral infarction without residual deficits; Z87.891 Personal history of nicotine dependence; Z88.0 Allergy status to penicillin
CPT/HCPCS: 36415; 71045-TC-FY; 74019-TC-FY; 74176-TC; 80048; 80053; 82962; 85025; 85610; 85730; 93005; 96360; 99285-25; C9803-CS; G0378; U0003; U0005

== ENCOUNTER 2022-03-16 17:10 | Inpatient (IN) | payer OTHER, MEDICARE ==
[2022-03-16] MEDS ORDERED: SODIUM PHOSPHATE/NA BIPHOS 133 ML ENEMA PR ONE (18:19)
[2022-03-16 20:36] LABS: HEMATOCRIT 32.7 % (35.4-49); HEMOGLOBIN 11.7 G/dL (11.7-16.9); MCH 31.5 pg (25.7-33.7); MCHC 35.8 g/dl (32.0-35.9); MEAN CELL VOLUME 87.9 fl (80-96); MEAN PLT VOLUME 8.3 fl (7.5-11.1); RBC 3.72 10^6/uL (4.00-5.60); RDW 14.7 % (11.9-15.9); WHITE BLOOD COUNT 14.5 10^3/uL (4.0-10.8)
[2022-03-16 20:37] LABS: CALCIUM 9.4 mg/dl (8.5-10)
[2022-03-16 20:41] LABS: ALBUMIN 3.8 g/dl (3.4-5.0); BILIRUBIN,TOTAL 0.6 mg/dl (0.2-1); CREATININE 0.9 mg/dl (0.55-1.3); TOT PROT 6.8 g/dl (6.4-8.2)
[2022-03-16] MEDS ORDERED: POLYETHYLENE GLYCOL (HEALTHYLAX) 3350 17 GM PACKET PO PRN (20:52)
[2022-03-16] MEDS ORDERED: POTASSIUM CHLORIDE TABS 20 MEQ TABLET.ER (FP) PO ONE ×2 (21:05→21:27)
[2022-03-16] MEDS ORDERED: KCL 10 MEQ IVPB 10 MEQ/100 ML INFUS.BAG IVPB SCH (21:15)
[2022-03-16] MEDS ORDERED: KCL 10 MEQ IVPB 10 MEQ/100 ML INFUS.BAG IVPB ONE (21:27)
[2022-03-16] MEDS ORDERED: SENNOSIDES 8.6MG TABLET (FP) PO ONE (22:00)
[2022-03-16 22:54] VITALS: BMI 24.5
[2022-03-16] MEDS: ATORVASTATIN CA 80 MG TABLET (FP) PO SCH (23:36)
[2022-03-16] MEDS: INSULIN SLIDING SCALE (NOVOLOG) 1 VIAL SQ SCH (23:36)
[2022-03-16] MEDS: ACETAMINOPHEN 325 MG TABLET (FP) PO PRN (23:38)
[2022-03-16] MEDS: SERTRALINE HCL 50 MG TABLET (FP) PO SCH (23:38)
[2022-03-17] MEDS ORDERED: DOCUSATE SODIUM 100 MG CAPSULE (FP) PO PRN (02:55)
[2022-03-17] MEDS: HEPARIN NA (PORCINE) 5,000 UNITS/ML 1ML VIAL SQ SCH ×3 (06:28→21:22)
[2022-03-17] MEDS: INSULIN SLIDING SCALE (NOVOLOG) 1 VIAL SQ SCH ×4 (06:29→21:22)
[2022-03-17] MEDS ORDERED: metFORMIN HCL 500 MG TABLET (FP) PO SCH (07:00)
[2022-03-17 09:28] LABS: CALCIUM 9.6 mg/dl (8.5-10); CREATININE 0.9 mg/dl (0.55-1.3); MAGNESIUM 1.4 mg/dL (1.8-2.4); PHOSPHOROUS 2.6 mg/dl (2.5-4.9)
[2022-03-17] MEDS: MEMANTINE HCL 10 MG TABLET (FP) PO SCH (09:33)
[2022-03-17] MEDS: SERTRALINE HCL 50 MG TABLET (FP) PO SCH ×2 (09:33→21:23)
[2022-03-17] MEDS: LISINOPRIL 20 MG TABLET PO SCH (09:33)
[2022-03-17] MEDS: CHLORTHALIDONE 25 MG TABLET PO SCH (09:33)
[2022-03-17] MEDS: ASPIRIN COATED 81 MG TABLET.EC PO SCH (09:33)
[2022-03-17 09:34] LABS: HEMATOCRIT 33.7 % (35.4-49); MCH 31.4 pg (25.7-33.7); MCHC 35.5 g/dl (32.0-35.9); MEAN CELL VOLUME 88.1 fl (80-96); MEAN PLT VOLUME 8.6 fl (7.5-11.1); PLATELET COUNT 249.7 10^3/uL (134-434); RBC 3.82 10^6/uL (4.00-5.60); RDW 15.1 % (11.9-15.9); WHITE BLOOD COUNT 9.5 10^3/uL (4.0-10.8)
[2022-03-17] MEDS ORDERED: DONEPEZIL HCL 5 MG TABLET (FP) PO SCH ×2 (10:00)
[2022-03-17] MEDS ORDERED: POTASSIUM CHLORIDE TABS 20 MEQ TABLET.ER (FP) PO ONE (11:00)
[2022-03-17] MEDS ORDERED: MAGNESIUM SULF 50% (8.12 MEQ/2 ML-1 GM VIAL) IVPB ONE (11:00)
[2022-03-17] MEDS: DONEPEZIL HCL 5 MG TABLET (FP) PO SCH (21:22)
[2022-03-17] MEDS: ATORVASTATIN CA 80 MG TABLET (FP) PO SCH (21:22)
[2022-03-17] MEDS: ACETAMINOPHEN 325 MG TABLET (FP) PO PRN (21:23)
[2022-03-18] MEDS: INSULIN SLIDING SCALE (NOVOLOG) 1 VIAL SQ SCH ×4 (06:17→21:33)
[2022-03-18] MEDS: HEPARIN NA (PORCINE) 5,000 UNITS/ML 1ML VIAL SQ SCH ×3 (06:18→21:33)
[2022-03-18 08:25] LABS: MAGNESIUM 1.5 mg/dL (1.8-2.4)
[2022-03-18] MEDS: ASPIRIN COATED 81 MG TABLET.EC PO SCH (09:13)
[2022-03-18] MEDS: SERTRALINE HCL 50 MG TABLET (FP) PO SCH ×2 (09:13→21:29)
[2022-03-18] MEDS: CHLORTHALIDONE 25 MG TABLET PO SCH (09:13)
[2022-03-18] MEDS: LISINOPRIL 20 MG TABLET PO SCH (09:13)
[2022-03-18] MEDS: MEMANTINE HCL 10 MG TABLET (FP) PO SCH (09:13)
[2022-03-18] MEDS: POTASSIUM CHLORIDE TABS 20 MEQ TABLET.ER (FP) PO SCH ×3 (09:15→21:28)
[2022-03-18] MEDS ORDERED: MAGNESIUM SULF 50% (8.12 MEQ/2 ML-1 GM VIAL) IVPB ONE (13:01)
[2022-03-18] MEDS ORDERED: MAGNESIUM SULFATE IN WATER 2 GM/50 ML IVPB IVPB ONE (13:15)
[2022-03-18] MEDS: ATORVASTATIN CA 80 MG TABLET (FP) PO SCH (21:29)
[2022-03-18] MEDS: DONEPEZIL HCL 5 MG TABLET (FP) PO SCH (21:29)
[2022-03-19] MEDS: HEPARIN NA (PORCINE) 5,000 UNITS/ML 1ML VIAL SQ SCH (06:29)
[2022-03-19] MEDS: INSULIN SLIDING SCALE (NOVOLOG) 1 VIAL SQ SCH ×2 (06:35→13:02)
[2022-03-19 06:55] VITALS: BP 131/63; PULSE 62; TEMP 98.1
[2022-03-19 07:13] LABS: HEMATOCRIT 35.6 % (35.4-49); HEMOGLOBIN 12.2 G/dL (11.7-16.9); MCH 30.7 pg (25.7-33.7); MCHC 34.3 g/dl (32.0-35.9); MEAN CELL VOLUME 89.4 fl (80-96); MEAN PLT VOLUME 7.9 fl (7.5-11.1); PLATELET COUNT 275.9 10^3/uL (134-434); RBC 3.98 10^6/uL (4.00-5.60); RDW 14.7 % (11.9-15.9); WHITE BLOOD COUNT 9.3 10^3/uL (4.0-10.8)
[2022-03-19 07:31] LABS: ALBUMIN 3.5 g/dl (3.4-5.0); BILIRUBIN,TOTAL 0.6 mg/dl (0.2-1); CREATININE 0.9 mg/dl (0.55-1.3); MAGNESIUM 1.9 mg/dL (1.8-2.4); TOT PROT 6.8 g/dl (6.4-8.2)
[2022-03-19] MEDS: ASPIRIN COATED 81 MG TABLET.EC PO SCH (09:17)
[2022-03-19] MEDS: MEMANTINE HCL 10 MG TABLET (FP) PO SCH (09:17)
[2022-03-19] MEDS: SERTRALINE HCL 50 MG TABLET (FP) PO SCH (09:17)
[2022-03-19] MEDS: LISINOPRIL 20 MG TABLET PO SCH (09:17)
[2022-03-19] MEDS: CHLORTHALIDONE 25 MG TABLET PO SCH (09:17)
== END 2022-03-19 14:28 | DRG 392 ==
LOC: FER 17:10 → FM/S 19:49
PROVIDERS: ADMIT Internal Medicine; ATTEND Nurse Practitioner Acute Care
DX: K59.00 Constipation, unspecified (principal); I10 Essential (primary) hypertension; I25.10 Atherosclerotic heart disease of native coronary artery without angina pectoris; Z95.1 Presence of aortocoronary bypass graft; F03.90 Unspecified dementia, unspecified severity, without behavioral disturbance, psychotic disturbance, mood disturbance, and anxiety; E11.9 Type 2 diabetes mellitus without complications; Z88.0 Allergy status to penicillin; F32.A Depression, unspecified; Z85.46 Personal history of malignant neoplasm of prostate; E87.6 Hypokalemia; E78.5 Hyperlipidemia, unspecified; E83.42 Hypomagnesemia; Z79.4 Long term (current) use of insulin
CPT/HCPCS: 36415; 71045-TC-FY; 74176-TC; 80048; 80053; 82962; 83036; 83690; 83735; 84100; 85025; 93005; 97116-GP; 97162-GP; 99285-25; C9803-CS; J1644; U0003; U0005

== ENCOUNTER 2022-04-23 15:37 | Emergency (ER) | payer OTHER, MEDICARE ==
[2022-04-23 17:51] VITALS: TEMP 98.8; BMI 23.6
[2022-04-23] MEDS ORDERED: ACETAMINOPHEN 500 MG TABLET (FP) PO ONE (17:58)
[2022-04-23] MEDS ORDERED: ACETAMINOPHEN 500 MG TABLET (FP) ONE (18:47)
[2022-04-23] MEDS ORDERED: SODIUM PHOSPHATE/NA BIPHOS 133 ML ENEMA PR ONE (18:58)
[2022-04-23] MEDS ORDERED: MAGNESIUM CITRATE 300 ML BOTTLE PO ONE (18:58)
[2022-04-23 19:03] LABS: EOS % 0.5 % (0-4.5); HEMATOCRIT 34.2 % (35.4-49); HEMOGLOBIN 11.5 GM/dL (11.7-16.9); LYMPH % 15.3 % (8-40); MCH 29.7 pg (25.7-33.7); MCHC 33.7 g/dl (32.0-35.9); MEAN CELL VOLUME 87.9 fl (80-96); MONO % 7.4 % (3.8-10.2); NEUT % 75.8 % (42.8-82.8); PLATELET COUNT 232 10^3/uL (134-434); RBC 3.89 M/mm3 (4.00-5.60); RDW 14.2 % (11.9-15.9); WHITE BLOOD COUNT 11.5 K/mm3 (4.0-10.0)
[2022-04-23 19:28] LABS: CALCIUM 9.9 mg/dL (8.5-10.1)
[2022-04-23 19:29] LABS: ALBUMIN 3.7 g/dl (3.4-5.0); BLOOD UREA NITROGEN 31.2 mg/dL (7-18)
[2022-04-23 19:32] LABS: CREATININE 1.1 mg/dL (0.55-1.3)
[2022-04-23 19:33] LABS: BILIRUBIN,TOTAL 0.3 mg/dL (0.2-1); TOT PROT 7.3 g/dl (6.4-8.2)
[2022-04-23] MEDS ORDERED: MAGNESIUM CITRATE 300 ML BOTTLE ONE (22:52)
[2022-04-24 05:20] VITALS: BP 144/68; PULSE 65
== END 2022-04-24 06:06 | disposition home or self-care (01) ==
LOC: JER 15:37
DX: K59.00 Constipation, unspecified (principal)
CPT/HCPCS: 36415; 74018-TC-FY; 80053; 83690; 85025; 99284-25

== ENCOUNTER 2022-07-06 21:08 | Observation (INO) | payer OTHER, MEDICARE ==
[2022-07-06 21:33] VITALS: BMI 24.2
[2022-07-06 22:05] LABS: BASO % 0.7 % (0-2.0); EOS % 2.8 % (0-4.5); HEMATOCRIT 35.5 % (35.4-49); HEMOGLOBIN 11.7 GM/dL (11.7-16.9); LYMPH % 17.7 % (8-40); MCH 29.9 pg (25.7-33.7); MCHC 32.9 g/dl (32.0-35.9); MEAN CELL VOLUME 90.9 fl (80-96); MONO % 9.8 % (3.8-10.2); PLATELET COUNT 228 10^3/uL (134-434); RBC 3.91 M/mm3 (4.00-5.60); RDW 14.8 % (11.9-15.9); WHITE BLOOD COUNT 8.7 K/mm3 (4.0-10.0)
[2022-07-06 22:13] LABS: INR 1.03 (0.83-1.09); PROTHROMBIN TIME (PATIENT) 11.9 SEC (9.7-13.0)
[2022-07-06 22:15] LABS: ACTIVATED PTT 29.9 SECONDS (25.2-36.5)
[2022-07-06 22:26] LABS: ALBUMIN 3.4 g/dl (3.4-5.0); BLOOD UREA NITROGEN 25.1 mg/dL (7-18); CALCIUM 9.5 mg/dL (8.5-10.1); MAGNESIUM 1.9 mg/dL (1.8-2.4)
[2022-07-06 22:31] LABS: BILIRUBIN,TOTAL 0.3 mg/dL (0.2-1)
[2022-07-07] MEDS ORDERED: SODIUM CHLORIDE 0.9% 500 ML INFUS.BAG IV ONE (00:34)
[2022-07-07 01:14] LABS: EPI CELLS 12 /uL (0-25.1); HYALINE CASTS 2 /uL (0-3.1); PH,URINE 5.5 (5.0-8.0); URINE APPEARANCE CLEAR; URINE BACTERIA 78 /uL (0-1359); URINE BILIRUBIN NEGATIVE (NEGATIVE); URINE COLOR YELLOW; URINE GLUCOSE (UA) NEGATIVE (NEGATIVE); URINE KETONE NEGATIVE (NEGATIVE); URINE LEUK ESTERASE 1+ (NEGATIVE); URINE NITRITE NEGATIVE (NEGATIVE); URINE PROTEIN NEGATIVE (NEGATIVE); URINE RBC 11 /uL (0-23.9); URINE UROBILINOGEN 0.2 mg/dL (0.2-1.0); URINE WBC 39 /uL (0-25.8)
[2022-07-07] MEDS ORDERED: DONEPEZIL HCL 5 MG TABLET (FP) PO SCH (10:00)
[2022-07-07] MEDS ORDERED: ASPIRIN COATED 81 MG TABLET.EC ONE (10:19)
[2022-07-07] MEDS ORDERED: ATORVASTATIN CA 80 MG TABLET (FP) ONE (10:20)
[2022-07-07] MEDS ORDERED: metFORMIN HCL 500 MG TABLET (FP) ONE (10:20)
[2022-07-07] MEDS ORDERED: LISINOPRIL 20 MG TABLET ONE (10:20)
[2022-07-07] MEDS ORDERED: amLODIPine BESYLATE 10 MG TABLET (FP) ONE (10:20)
[2022-07-07] MEDS: metFORMIN HCL 500 MG TABLET (FP) PO SCH (10:27)
[2022-07-07] MEDS: LISINOPRIL 20 MG TABLET PO SCH (10:27)
[2022-07-07] MEDS: ATORVASTATIN CA 80 MG TABLET (FP) PO SCH (10:27)
[2022-07-07] MEDS: amLODIPine BESYLATE 10 MG TABLET (FP) PO SCH (10:27)
[2022-07-07] MEDS: ASPIRIN COATED 81 MG TABLET.EC PO SCH (10:27)
[2022-07-07] MEDS ORDERED: SERTRALINE HCL 50 MG TABLET (FP) ONE (10:37)
[2022-07-07] MEDS: SERTRALINE HCL 50 MG TABLET (FP) PO SCH ×2 (10:40→22:30)
[2022-07-07] MEDS: CHLORTHALIDONE 25 MG TABLET PO SCH (10:40)
[2022-07-07] MEDS: MEMANTINE HCL 10 MG TABLET (FP) PO SCH (10:40)
[2022-07-07] MEDS ORDERED: DONEPEZIL HCL 5 MG TABLET (FP) ONE (15:25)
[2022-07-07] MEDS: DONEPEZIL HCL 5 MG TABLET (FP) PO SCH ×2 (15:27→22:30)
[2022-07-07] MEDS: INSULIN SLIDING SCALE (NOVOLOG) 1 VIAL SQ SCH (17:18)
[2022-07-07] MEDS: HEPARIN NA (PORCINE) 5,000 UNITS/ML 1ML VIAL SQ SCH (22:30)
[2022-07-08] MEDS: INSULIN SLIDING SCALE (NOVOLOG) 1 VIAL SQ SCH ×3 (06:27→16:05)
[2022-07-08] MEDS: metFORMIN HCL 500 MG TABLET (FP) PO SCH (08:18)
[2022-07-08] MEDS: SERTRALINE HCL 50 MG TABLET (FP) PO SCH ×2 (09:19→21:52)
[2022-07-08] MEDS: HEPARIN NA (PORCINE) 5,000 UNITS/ML 1ML VIAL SQ SCH ×2 (09:19→21:52)
[2022-07-08] MEDS: amLODIPine BESYLATE 10 MG TABLET (FP) PO SCH (09:19)
[2022-07-08] MEDS: ASPIRIN COATED 81 MG TABLET.EC PO SCH (09:19)
[2022-07-08] MEDS: ATORVASTATIN CA 80 MG TABLET (FP) PO SCH (09:19)
[2022-07-08] MEDS: MEMANTINE HCL 10 MG TABLET (FP) PO SCH (09:19)
[2022-07-08] MEDS: CHLORTHALIDONE 25 MG TABLET PO SCH (09:19)
[2022-07-08] MEDS: DONEPEZIL HCL 5 MG TABLET (FP) PO SCH ×2 (09:20→21:52)
[2022-07-08] MEDS: LISINOPRIL 20 MG TABLET PO SCH (09:25)
[2022-07-08 10:17] LABS: BASO % 0.5 % (0-2.0); HEMATOCRIT 35.9 % (35.4-49); LYMPH % 21.5 % (8-40); MCH 29.7 pg (25.7-33.7); MCHC 33.5 g/dl (32.0-35.9); MEAN CELL VOLUME 88.6 fl (80-96); MEAN PLT VOLUME 8.4 fl (7.5-11.1); MONO % 9.9 % (3.8-10.2); NEUT % 66.1 % (42.8-82.8); PLATELET COUNT 224 10^3/uL (134-434); RBC 4.05 M/mm3 (4.00-5.60); RDW 14.4 % (11.9-15.9); WHITE BLOOD COUNT 7.2 K/mm3 (4.0-10.0)
[2022-07-08 10:55] LABS: ALBUMIN 3.3 g/dl (3.4-5.0); BLOOD UREA NITROGEN 15.7 mg/dL (7-18); CALCIUM 8.9 mg/dL (8.5-10.1); MAGNESIUM 1.7 mg/dL (1.8-2.4)
[2022-07-08 10:59] LABS: BILIRUBIN,TOTAL 0.6 mg/dL (0.2-1); CREATININE 0.8 mg/dL (0.55-1.3); PHOSPHOROUS 3.3 mg/dL (2.5-4.9); TOT PROT 6.7 g/dl (6.4-8.2)
[2022-07-08] MEDS ORDERED: POTASSIUM CHLORIDE TABS 20 MEQ TABLET.ER (FP) PO ONE (15:33)
[2022-07-08] MEDS ORDERED: MAGNESIUM OXIDE 400 MG TABLET (FP) PO ONE (15:34)
[2022-07-08] MEDS: MAGNESIUM SULF 50% (8.12 MEQ/2 ML-1 GM VIAL) IVPB ONE ×2 (16:00→17:01)
[2022-07-08] MEDS: MAGNESIUM OXIDE 400 MG TABLET (FP) PO ONE ×2 (17:01→17:06)
[2022-07-09] MEDS: INSULIN SLIDING SCALE (NOVOLOG) 1 VIAL SQ SCH ×3 (06:32→16:43)
[2022-07-09] MEDS: QUEtiapine FUMARATE 25 MG TABLET PO SCH (09:25)
[2022-07-09] MEDS: SERTRALINE HCL 50 MG TABLET (FP) PO SCH ×2 (09:25→21:50)
[2022-07-09] MEDS: ASPIRIN COATED 81 MG TABLET.EC PO SCH (09:25)
[2022-07-09] MEDS: DONEPEZIL HCL 5 MG TABLET (FP) PO SCH ×2 (09:25→21:50)
[2022-07-09] MEDS: amLODIPine BESYLATE 10 MG TABLET (FP) PO SCH (09:25)
[2022-07-09] MEDS: HEPARIN NA (PORCINE) 5,000 UNITS/ML 1ML VIAL SQ SCH ×3 (09:26→21:56)
[2022-07-09] MEDS: MEMANTINE HCL 10 MG TABLET (FP) PO SCH (09:26)
[2022-07-09] MEDS: ATORVASTATIN CA 80 MG TABLET (FP) PO SCH (09:26)
[2022-07-09] MEDS: LISINOPRIL 20 MG TABLET PO SCH (09:26)
[2022-07-09] MEDS: CHLORTHALIDONE 25 MG TABLET PO SCH (09:26)
[2022-07-09 14:28] VITALS: RESP 18
[2022-07-10] MEDS: INSULIN SLIDING SCALE (NOVOLOG) 1 VIAL SQ SCH ×3 (06:41→16:06)
[2022-07-10] MEDS: ASPIRIN COATED 81 MG TABLET.EC PO SCH (09:30)
[2022-07-10] MEDS: DONEPEZIL HCL 5 MG TABLET (FP) PO SCH (09:30)
[2022-07-10] MEDS: SERTRALINE HCL 50 MG TABLET (FP) PO SCH (09:30)
[2022-07-10] MEDS: ATORVASTATIN CA 80 MG TABLET (FP) PO SCH (09:30)
[2022-07-10] MEDS: CHLORTHALIDONE 25 MG TABLET PO SCH (09:31)
[2022-07-10] MEDS: amLODIPine BESYLATE 10 MG TABLET (FP) PO SCH (09:31)
[2022-07-10] MEDS: LISINOPRIL 20 MG TABLET PO SCH (09:31)
[2022-07-10] MEDS: MEMANTINE HCL 10 MG TABLET (FP) PO SCH (09:31)
[2022-07-10] MEDS: QUEtiapine FUMARATE 25 MG TABLET PO SCH (09:31)
[2022-07-10] MEDS: HEPARIN NA (PORCINE) 5,000 UNITS/ML 1ML VIAL SQ SCH ×2 (09:32→09:38)
[2022-07-10 12:11] LABS: HEMATOCRIT 37.5 % (35.4-49); HEMOGLOBIN 12.5 GM/dL (11.7-16.9); MCH 29.8 pg (25.7-33.7); MCHC 33.4 g/dl (32.0-35.9); MEAN CELL VOLUME 89.3 fl (80-96); MEAN PLT VOLUME 8.3 fl (7.5-11.1); PLATELET COUNT 291 10^3/uL (134-434); RDW 14.5 % (11.9-15.9); WHITE BLOOD COUNT 8.7 K/mm3 (4.0-10.0)
[2022-07-10 12:28] LABS: ALBUMIN 3.4 g/dl (3.4-5.0); CALCIUM 9.4 mg/dL (8.5-10.1); MAGNESIUM 2.2 mg/dL (1.8-2.4)
[2022-07-10 12:31] LABS: CREATININE 1.2 mg/dL (0.55-1.3)
[2022-07-10 12:32] LABS: BILIRUBIN,TOTAL 0.4 mg/dL (0.2-1)
[2022-07-10 12:33] LABS: TOT PROT 6.8 g/dl (6.4-8.2)
[2022-07-10] MEDS ORDERED: POTASSIUM CHLORIDE TABS 20 MEQ TABLET.ER (FP) PO ONE (13:56)
[2022-07-10] MEDS ORDERED: ACETAMINOPHEN 325 MG TABLET (FP) PO PRN (14:28)
[2022-07-10 14:40] VITALS: BP 112/65; PULSE 73; TEMP 97.9
== END 2022-07-10 18:13 ==
LOC: JER 21:08 → JERBED 07-07 07:15 → J6S 07-07 18:42
PROVIDERS: ADMIT Internal Medicine; ATTEND Internal Medicine
PROC: 3E0337Z Introduction of Electrolytic and Water Balance Substance into Peripheral Vein, Percutaneous Approach (ICD-10-PCS; principal; 2022-07-07)
DX: I25.10 Atherosclerotic heart disease of native coronary artery without angina pectoris (principal); R29.6 Repeated falls; W18.39XA Other fall on same level, initial encounter; Y93.89 Activity, other specified; Y92.89 Other specified places as the place of occurrence of the external cause; R53.1 Weakness; F03.90 Unspecified dementia, unspecified severity, without behavioral disturbance, psychotic disturbance, mood disturbance, and anxiety; I10 Essential (primary) hypertension; E11.9 Type 2 diabetes mellitus without complications; E78.5 Hyperlipidemia, unspecified; N40.0 Benign prostatic hyperplasia without lower urinary tract symptoms; Z87.891 Personal history of nicotine dependence; R91.1 Solitary pulmonary nodule; Z95.1 Presence of aortocoronary bypass graft; K21.9 Gastro-esophageal reflux disease without esophagitis; F41.8 Other specified anxiety disorders; Z88.0 Allergy status to penicillin
CPT/HCPCS: 36415; 70450-TC; 71045-TC-FY; 71250-TC; 72125-TC; 74150-TC; 80053; 81003; 82962; 83735; 84100; 84484; 85025; 85027; 85610; 85730; 87086; 93005; 93010; 96360; 97116-GP; 97162-GP; 99285-25; C9803-CS; G0378; J1644; U0003; U0005

== ENCOUNTER 2022-08-19 13:35 | Inpatient (IN) | payer OTHER, MEDICARE ==
[2022-08-19 14:00] VITALS: BMI 22.6
[2022-08-19] MEDS ORDERED: ACETAMINOPHEN 325 MG TABLET (FP) PO ONE (14:48)
[2022-08-19] MEDS ORDERED: ACETAMINOPHEN 325 MG TABLET (FP) ONE (14:55)
[2022-08-19] MEDS ORDERED: LIDOCAINE HCL 2% JELLY (5 ML/TUBE) ONE (15:33)
[2022-08-19] MEDS ORDERED: HALOPERIDOL LACTATE 5 MG/ML IM ONE ×4 (16:33→23:18)
[2022-08-19] MEDS ORDERED: LORazepam 2 MG/ML SDV VIAL IM ONE ×2 (16:35→22:59)
[2022-08-19 20:53] LABS: BASO % 0.5 % (0-2.0); EOS % 0.6 % (0-4.5); HEMATOCRIT 32.4 % (35.4-49); HEMOGLOBIN 11.3 GM/dL (11.7-16.9); LYMPH % 13.6 % (8-40); MCHC 34.9 g/dl (32.0-35.9); MEAN CELL VOLUME 88.7 fl (80-96); MONO % 9.1 % (3.8-10.2); NEUT % 76.2 % (42.8-82.8); PLATELET COUNT 236 10^3/uL (134-434); RBC 3.65 M/mm3 (4.00-5.60); RDW 14.7 % (11.9-15.9); WHITE BLOOD COUNT 10.5 K/mm3 (4.0-10.0)
[2022-08-19 21:10] LABS: CALCIUM 9.1 mg/dL (8.5-10.1)
[2022-08-19 21:11] LABS: ALBUMIN 3.3 g/dl (3.4-5.0); BLOOD UREA NITROGEN 18.2 mg/dL (7-18)
[2022-08-19 21:14] LABS: CREATININE 0.8 mg/dL (0.55-1.3)
[2022-08-19 21:15] LABS: BILIRUBIN,TOTAL 0.4 mg/dL (0.2-1)
[2022-08-19 22:20] LABS: EPI CELLS 18 /uL (0-25.1); HYALINE CASTS 2 /uL (0-3.1); URINE APPEARANCE TURBID; URINE BACTERIA 31 /uL (0-1359); URINE BILIRUBIN NEGATIVE (NEGATIVE); URINE COLOR RED; URINE GLUCOSE (UA) NEGATIVE (NEGATIVE); URINE KETONE NEGATIVE (NEGATIVE); URINE LEUK ESTERASE 2+ (NEGATIVE); URINE NITRITE NEGATIVE (NEGATIVE); URINE PROTEIN 1+ (NEGATIVE); URINE RBC 19823 /uL (0-23.9); URINE UROBILINOGEN 0.2 mg/dL (0.2-1.0); URINE WBC 138 /uL (0-25.8)
[2022-08-19 23:15] LABS: EPI CELLS 13 /uL (0-25.1); HYALINE CASTS 0 /uL (0-3.1); URINE APPEARANCE CLOUDY; URINE BACTERIA 168 /uL (0-1359); URINE BILIRUBIN NEGATIVE (NEGATIVE); URINE COLOR RED; URINE GLUCOSE (UA) NEGATIVE (NEGATIVE); URINE KETONE NEGATIVE (NEGATIVE); URINE LEUK ESTERASE 2+ (NEGATIVE); URINE NITRITE NEGATIVE (NEGATIVE); URINE PROTEIN 1+ (NEGATIVE); URINE RBC 6018 /uL (0-23.9); URINE UROBILINOGEN 0.2 mg/dL (0.2-1.0); URINE WBC 55 /uL (0-25.8)
[2022-08-20] MEDS ORDERED: SODIUM CHLORIDE 1,000 ML IV SCH (01:30)
[2022-08-20] MEDS: INSULIN SLIDING SCALE (NOVOLOG) 1 VIAL SQ SCH ×4 (07:24→22:55)
[2022-08-20 08:39] LABS: BASO % 0.4 % (0-2.0); HEMATOCRIT 30.7 % (35.4-49); HEMOGLOBIN 10.5 GM/dL (11.7-16.9); LYMPH % 12.2 % (8-40); MCHC 34.1 g/dl (32.0-35.9); MEAN CELL VOLUME 87.9 fl (80-96); MEAN PLT VOLUME 8.4 fl (7.5-11.1); MONO % 9.3 % (3.8-10.2); NEUT % 77.1 % (42.8-82.8); PLATELET COUNT 232 10^3/uL (134-434); RBC 3.49 M/mm3 (4.00-5.60); RDW 14.6 % (11.9-15.9); WHITE BLOOD COUNT 8.2 K/mm3 (4.0-10.0)
[2022-08-20] MEDS ORDERED: BISACODYL 10 MG SUPP.RECT PR ONE (08:45)
[2022-08-20 08:57] LABS: ALBUMIN 2.9 g/dl (3.4-5.0); CALCIUM 8.6 mg/dL (8.5-10.1); MAGNESIUM 1.5 mg/dL (1.8-2.4)
[2022-08-20 09:00] LABS: CREATININE 0.8 mg/dL (0.55-1.3); PHOSPHOROUS 3.3 mg/dL (2.5-4.9)
[2022-08-20 09:02] LABS: BILIRUBIN,TOTAL 0.9 mg/dL (0.2-1); TOT PROT 6.3 g/dl (6.4-8.2)
[2022-08-20] MEDS: SERTRALINE HCL 50 MG TABLET (FP) PO SCH ×2 (09:10→22:56)
[2022-08-20] MEDS: LISINOPRIL 20 MG TABLET PO SCH (09:10)
[2022-08-20] MEDS: ENOXAPARIN NA (PORCINE) 40 MG/0.4 ML DISP.SYRIN SQ SCH (09:10)
[2022-08-20] MEDS: ASPIRIN COATED 81 MG TABLET.EC PO SCH (09:10)
[2022-08-20] MEDS: amLODIPine BESYLATE 5 MG TABLET (FP) PO SCH (09:10)
[2022-08-20] MEDS: SENNOSIDES 8.6MG TABLET (FP) PO SCH ×2 (09:10→22:55)
[2022-08-20] MEDS: POLYETHYLENE GLYCOL (HEALTHYLAX) 3350 17 GM PACKET PO SCH ×2 (09:10→22:56)
[2022-08-20] MEDS ORDERED: CEFTRIAXONE 1 GM in DEXTROSE 5%-WATER - 50 ML IVPB SCH (10:00)
[2022-08-20] MEDS: MEMANTINE HCL 10 MG TABLET (FP) PO SCH (10:11)
[2022-08-20] MEDS: QUEtiapine FUMARATE 25 MG TABLET PO SCH (15:56)
[2022-08-20] MEDS ORDERED: MELATONIN 5 MG TABLETS PO PRN (20:00)
[2022-08-20] MEDS: ATORVASTATIN CA 80 MG TABLET (FP) PO SCH (22:56)
[2022-08-20] MEDS: DONEPEZIL HCL 5 MG TABLET (FP) PO SCH (22:56)
[2022-08-21] MEDS: INSULIN SLIDING SCALE (NOVOLOG) 1 VIAL SQ SCH ×4 (06:06→22:53)
[2022-08-21 07:50] LABS: BASO % 0.8 % (0-2.0); EOS % 1.7 % (0-4.5); HEMATOCRIT 31.7 % (35.4-49); HEMOGLOBIN 10.7 GM/dL (11.7-16.9); LYMPH % 15.1 % (8-40); MCH 29.8 pg (25.7-33.7); MCHC 33.9 g/dl (32.0-35.9); MEAN CELL VOLUME 87.8 fl (80-96); MEAN PLT VOLUME 8.3 fl (7.5-11.1); MONO % 9.8 % (3.8-10.2); NEUT % 72.6 % (42.8-82.8); PLATELET COUNT 248 10^3/uL (134-434); RBC 3.61 M/mm3 (4.00-5.60); RDW 14.6 % (11.9-15.9); WHITE BLOOD COUNT 6.8 K/mm3 (4.0-10.0)
[2022-08-21 08:40] LABS: CALCIUM 8.8 mg/dL (8.5-10.1)
[2022-08-21 08:41] LABS: ALBUMIN 2.8 g/dl (3.4-5.0); BLOOD UREA NITROGEN 16.4 mg/dL (7-18); MAGNESIUM 1.6 mg/dL (1.8-2.4)
[2022-08-21 08:44] LABS: CREATININE 0.9 mg/dL (0.55-1.3); PHOSPHOROUS 3.7 mg/dL (2.5-4.9)
[2022-08-21 08:45] LABS: BILIRUBIN,TOTAL 0.6 mg/dL (0.2-1)
[2022-08-21] MEDS: amLODIPine BESYLATE 5 MG TABLET (FP) PO SCH (09:06)
[2022-08-21] MEDS: QUEtiapine FUMARATE 25 MG TABLET PO SCH (09:06)
[2022-08-21] MEDS: SENNOSIDES 8.6MG TABLET (FP) PO SCH ×2 (09:06→22:53)
[2022-08-21] MEDS: SERTRALINE HCL 50 MG TABLET (FP) PO SCH ×2 (09:06→22:53)
[2022-08-21] MEDS: LISINOPRIL 20 MG TABLET PO SCH (09:06)
[2022-08-21] MEDS: MEMANTINE HCL 10 MG TABLET (FP) PO SCH (09:07)
[2022-08-21] MEDS: ASPIRIN COATED 81 MG TABLET.EC PO SCH (09:07)
[2022-08-21] MEDS: POLYETHYLENE GLYCOL (HEALTHYLAX) 3350 17 GM PACKET PO SCH ×2 (09:07→22:53)
[2022-08-21] MEDS: ENOXAPARIN NA (PORCINE) 40 MG/0.4 ML DISP.SYRIN SQ SCH (09:07)
[2022-08-21] MEDS: CEFTRIAXONE 1 GM in DEXTROSE 5%-WATER - 50 ML IVPB SCH (11:45)
[2022-08-21] MEDS: ATORVASTATIN CA 80 MG TABLET (FP) PO SCH (22:53)
[2022-08-21] MEDS: DONEPEZIL HCL 5 MG TABLET (FP) PO SCH (22:53)
[2022-08-22] MEDS ORDERED: ACETAMINOPHEN 500 MG TABLET (FP) PO ONE (01:17)
[2022-08-22] MEDS: INSULIN SLIDING SCALE (NOVOLOG) 1 VIAL SQ SCH ×4 (06:13→22:27)
[2022-08-22 07:38] LABS: BASO % 0.6 % (0-2.0); EOS % 0.8 % (0-4.5); HEMATOCRIT 32.4 % (35.4-49); HEMOGLOBIN 10.9 GM/dL (11.7-16.9); LYMPH % 13.3 % (8-40); MCHC 33.7 g/dl (32.0-35.9); MEAN CELL VOLUME 89.1 fl (80-96); MEAN PLT VOLUME 7.6 fl (7.5-11.1); MONO % 10.6 % (3.8-10.2); NEUT % 74.7 % (42.8-82.8); PLATELET COUNT 244 10^3/uL (134-434); RBC 3.64 M/mm3 (4.00-5.60); RDW 14.7 % (11.9-15.9); WHITE BLOOD COUNT 8.2 K/mm3 (4.0-10.0)
[2022-08-22 07:58] LABS: ALBUMIN 2.9 g/dl (3.4-5.0); MAGNESIUM 1.8 mg/dL (1.8-2.4)
[2022-08-22 08:01] LABS: CREATININE 0.8 mg/dL (0.55-1.3); PHOSPHOROUS 3.2 mg/dL (2.5-4.9)
[2022-08-22 08:03] LABS: BILIRUBIN,TOTAL 0.4 mg/dL (0.2-1); TOT PROT 6.3 g/dl (6.4-8.2)
[2022-08-22] MEDS: POLYETHYLENE GLYCOL (HEALTHYLAX) 3350 17 GM PACKET PO SCH ×2 (09:34→21:19)
[2022-08-22] MEDS: QUEtiapine FUMARATE 25 MG TABLET PO SCH (09:34)
[2022-08-22] MEDS: SERTRALINE HCL 50 MG TABLET (FP) PO SCH ×2 (09:34→21:17)
[2022-08-22] MEDS: ASPIRIN COATED 81 MG TABLET.EC PO SCH (09:34)
[2022-08-22] MEDS: LISINOPRIL 20 MG TABLET PO SCH (09:34)
[2022-08-22] MEDS: MEMANTINE HCL 10 MG TABLET (FP) PO SCH (09:34)
[2022-08-22] MEDS: amLODIPine BESYLATE 5 MG TABLET (FP) PO SCH (09:34)
[2022-08-22] MEDS: CEFTRIAXONE 1 GM in DEXTROSE 5%-WATER - 50 ML IVPB SCH (09:34)
[2022-08-22] MEDS: SENNOSIDES 8.6MG TABLET (FP) PO SCH ×2 (09:34→21:19)
[2022-08-22] MEDS: ENOXAPARIN NA (PORCINE) 40 MG/0.4 ML DISP.SYRIN SQ SCH (09:36)
[2022-08-22] MEDS: ATORVASTATIN CA 80 MG TABLET (FP) PO SCH (21:17)
[2022-08-22] MEDS: SULFAMETHOXAZOLE/TRIMETHOPRIM 800MG/160MG D.S. TABLET PO SCH (21:17)
[2022-08-22] MEDS: DONEPEZIL HCL 5 MG TABLET (FP) PO SCH (21:17)
[2022-08-23] MEDS ORDERED: ACETAMINOPHEN 325 MG TABLET (FP) PO ONE (01:12)
[2022-08-23] MEDS: INSULIN SLIDING SCALE (NOVOLOG) 1 VIAL SQ SCH ×4 (06:04→21:10)
[2022-08-23] MEDS: SULFAMETHOXAZOLE/TRIMETHOPRIM 800MG/160MG D.S. TABLET PO SCH ×2 (09:27→21:08)
[2022-08-23] MEDS: QUEtiapine FUMARATE 25 MG TABLET PO SCH (09:27)
[2022-08-23] MEDS: POLYETHYLENE GLYCOL (HEALTHYLAX) 3350 17 GM PACKET PO SCH ×2 (09:27→21:10)
[2022-08-23] MEDS: ENOXAPARIN NA (PORCINE) 40 MG/0.4 ML DISP.SYRIN SQ SCH (09:27)
[2022-08-23] MEDS: SERTRALINE HCL 50 MG TABLET (FP) PO SCH ×2 (09:27→21:10)
[2022-08-23] MEDS: ASPIRIN COATED 81 MG TABLET.EC PO SCH (09:27)
[2022-08-23] MEDS: SENNOSIDES 8.6MG TABLET (FP) PO SCH ×2 (09:27→21:08)
[2022-08-23] MEDS: LISINOPRIL 20 MG TABLET PO SCH (09:27)
[2022-08-23] MEDS: amLODIPine BESYLATE 5 MG TABLET (FP) PO SCH (09:27)
[2022-08-23] MEDS: MEMANTINE HCL 10 MG TABLET (FP) PO SCH (09:29)
[2022-08-23] MEDS ORDERED: LIDOCAINE 5% TOPICAL PATCH TP ONE (11:42)
[2022-08-23] MEDS ORDERED: BISACODYL 5 MG TABLET.DR (FP) PO ONE (12:23)
[2022-08-23] MEDS: ACETAMINOPHEN 325 MG TABLET (FP) PO PRN (16:37)
[2022-08-23] MEDS: DONEPEZIL HCL 5 MG TABLET (FP) PO SCH (21:08)
[2022-08-23] MEDS: ATORVASTATIN CA 80 MG TABLET (FP) PO SCH (21:08)
[2022-08-23] MEDS ORDERED: LIDOCAINE PATCH REMOVAL MC ONE (22:00)
[2022-08-24] MEDS: INSULIN SLIDING SCALE (NOVOLOG) 1 VIAL SQ SCH ×4 (06:07→21:19)
[2022-08-24] MEDS: ACETAMINOPHEN 325 MG TABLET (FP) PO PRN (06:26)
[2022-08-24 08:05] LABS: BASO % 0.6 % (0-2.0); EOS % 2.1 % (0-4.5); HEMOGLOBIN 11.3 GM/dL (11.7-16.9); LYMPH % 17.3 % (8-40); MCH 30.3 pg (25.7-33.7); MCHC 34.2 g/dl (32.0-35.9); MEAN CELL VOLUME 88.6 fl (80-96); MEAN PLT VOLUME 7.9 fl (7.5-11.1); MONO % 8.5 % (3.8-10.2); NEUT % 71.5 % (42.8-82.8); PLATELET COUNT 293 10^3/uL (134-434); RBC 3.73 M/mm3 (4.00-5.60); RDW 14.5 % (11.9-15.9); WHITE BLOOD COUNT 8.4 K/mm3 (4.0-10.0)
[2022-08-24 08:21] LABS: BLOOD UREA NITROGEN 17.5 mg/dL (7-18); CALCIUM 9.1 mg/dL (8.5-10.1); MAGNESIUM 1.8 mg/dL (1.8-2.4)
[2022-08-24 08:22] LABS: ALBUMIN 2.9 g/dl (3.4-5.0)
[2022-08-24 08:23] LABS: PHOSPHOROUS 3.2 mg/dL (2.5-4.9)
[2022-08-24 08:24] LABS: CREATININE 0.9 mg/dL (0.55-1.3)
[2022-08-24 08:26] LABS: BILIRUBIN,TOTAL 0.3 mg/dL (0.2-1); TOT PROT 6.6 g/dl (6.4-8.2)
[2022-08-24] MEDS: QUEtiapine FUMARATE 25 MG TABLET PO SCH (09:58)
[2022-08-24] MEDS: ASPIRIN COATED 81 MG TABLET.EC PO SCH (09:58)
[2022-08-24] MEDS: ENOXAPARIN NA (PORCINE) 40 MG/0.4 ML DISP.SYRIN SQ SCH (09:59)
[2022-08-24] MEDS: SERTRALINE HCL 50 MG TABLET (FP) PO SCH ×2 (09:59→21:19)
[2022-08-24] MEDS: MEMANTINE HCL 10 MG TABLET (FP) PO SCH (09:59)
[2022-08-24] MEDS: POLYETHYLENE GLYCOL (HEALTHYLAX) 3350 17 GM PACKET PO SCH ×2 (09:59→21:19)
[2022-08-24] MEDS: SULFAMETHOXAZOLE/TRIMETHOPRIM 800MG/160MG D.S. TABLET PO SCH ×2 (09:59→21:19)
[2022-08-24] MEDS: amLODIPine BESYLATE 5 MG TABLET (FP) PO SCH (09:59)
[2022-08-24] MEDS: SENNOSIDES 8.6MG TABLET (FP) PO SCH ×2 (09:59→21:19)
[2022-08-24] MEDS: LISINOPRIL 20 MG TABLET PO SCH (09:59)
[2022-08-24] MEDS: DONEPEZIL HCL 5 MG TABLET (FP) PO SCH (21:19)
[2022-08-24] MEDS: ATORVASTATIN CA 80 MG TABLET (FP) PO SCH (21:19)
[2022-08-25] MEDS: ACETAMINOPHEN 325 MG TABLET (FP) PO PRN (02:26)
[2022-08-25 06:36] VITALS: RESP 18
[2022-08-25] MEDS: INSULIN SLIDING SCALE (NOVOLOG) 1 VIAL SQ SCH ×4 (06:45→21:22)
[2022-08-25 09:02] LABS: BASO % 0.5 % (0-2.0); HEMATOCRIT 30.7 % (35.4-49); HEMOGLOBIN 10.7 GM/dL (11.7-16.9); LYMPH % 20.2 % (8-40); MCH 30.5 pg (25.7-33.7); MCHC 34.8 g/dl (32.0-35.9); MEAN CELL VOLUME 87.7 fl (80-96); MEAN PLT VOLUME 7.9 fl (7.5-11.1); MONO % 8.6 % (3.8-10.2); NEUT % 68.7 % (42.8-82.8); PLATELET COUNT 286 10^3/uL (134-434); RDW 14.5 % (11.9-15.9); WHITE BLOOD COUNT 6.5 K/mm3 (4.0-10.0)
[2022-08-25 09:27] LABS: ALBUMIN 2.8 g/dl (3.4-5.0); BLOOD UREA NITROGEN 18.7 mg/dL (7-18); CALCIUM 8.7 mg/dL (8.5-10.1)
[2022-08-25 09:30] LABS: CREATININE 0.9 mg/dL (0.55-1.3); PHOSPHOROUS 3.2 mg/dL (2.5-4.9)
[2022-08-25 09:33] LABS: BILIRUBIN,TOTAL 0.3 mg/dL (0.2-1); TOT PROT 6.5 g/dl (6.4-8.2)
[2022-08-25] MEDS: SULFAMETHOXAZOLE/TRIMETHOPRIM 800MG/160MG D.S. TABLET PO SCH ×2 (10:32→21:14)
[2022-08-25] MEDS: QUEtiapine FUMARATE 25 MG TABLET PO SCH (10:32)
[2022-08-25] MEDS: SENNOSIDES 8.6MG TABLET (FP) PO SCH ×2 (10:32→21:15)
[2022-08-25] MEDS: SERTRALINE HCL 50 MG TABLET (FP) PO SCH ×2 (10:32→21:15)
[2022-08-25] MEDS: ASPIRIN COATED 81 MG TABLET.EC PO SCH (10:33)
[2022-08-25] MEDS: ENOXAPARIN NA (PORCINE) 40 MG/0.4 ML DISP.SYRIN SQ SCH (10:33)
[2022-08-25] MEDS: POLYETHYLENE GLYCOL (HEALTHYLAX) 3350 17 GM PACKET PO SCH ×2 (10:34→21:15)
[2022-08-25] MEDS: LISINOPRIL 20 MG TABLET PO SCH (10:34)
[2022-08-25] MEDS: MEMANTINE HCL 10 MG TABLET (FP) PO SCH (10:34)
[2022-08-25] MEDS: amLODIPine BESYLATE 5 MG TABLET (FP) PO SCH (10:34)
[2022-08-25] MEDS ORDERED: ALPRAZolam 1 MG TABLET PO STA (12:46)
[2022-08-25] MEDS ORDERED: MELATONIN 5 MG TABLETS PO ONE (20:00)
[2022-08-25] MEDS: DONEPEZIL HCL 5 MG TABLET (FP) PO SCH (21:15)
[2022-08-25] MEDS: ATORVASTATIN CA 80 MG TABLET (FP) PO SCH (21:15)
[2022-08-26] MEDS: INSULIN SLIDING SCALE (NOVOLOG) 1 VIAL SQ SCH ×4 (06:38→22:24)
[2022-08-26 08:55] LABS: BASO % 0.6 % (0-2.0); EOS % 1.8 % (0-4.5); HEMATOCRIT 32.2 % (35.4-49); LYMPH % 13.5 % (8-40); MCH 30.3 pg (25.7-33.7); MCHC 34.1 g/dl (32.0-35.9); MEAN CELL VOLUME 89.1 fl (80-96); MEAN PLT VOLUME 7.8 fl (7.5-11.1); MONO % 7.1 % (3.8-10.2); PLATELET COUNT 299 10^3/uL (134-434); RBC 3.61 M/mm3 (4.00-5.60); RDW 14.8 % (11.9-15.9); WHITE BLOOD COUNT 7.1 K/mm3 (4.0-10.0)
[2022-08-26 09:19] LABS: ALBUMIN 2.8 g/dl (3.4-5.0); BLOOD UREA NITROGEN 19.3 mg/dL (7-18); MAGNESIUM 1.9 mg/dL (1.8-2.4)
[2022-08-26 09:22] LABS: PHOSPHOROUS 3.4 mg/dL (2.5-4.9)
[2022-08-26 09:23] LABS: BILIRUBIN,TOTAL 0.2 mg/dL (0.2-1); TOT PROT 6.3 g/dl (6.4-8.2)
[2022-08-26] MEDS: SENNOSIDES 8.6MG TABLET (FP) PO SCH ×2 (11:24→22:24)
[2022-08-26] MEDS: LISINOPRIL 20 MG TABLET PO SCH (11:24)
[2022-08-26] MEDS: amLODIPine BESYLATE 5 MG TABLET (FP) PO SCH (11:24)
[2022-08-26] MEDS: MEMANTINE HCL 10 MG TABLET (FP) PO SCH (11:24)
[2022-08-26] MEDS: SULFAMETHOXAZOLE/TRIMETHOPRIM 800MG/160MG D.S. TABLET PO SCH ×2 (11:24→22:24)
[2022-08-26] MEDS: SERTRALINE HCL 50 MG TABLET (FP) PO SCH ×2 (11:24→22:21)
[2022-08-26] MEDS: ENOXAPARIN NA (PORCINE) 40 MG/0.4 ML DISP.SYRIN SQ SCH (11:24)
[2022-08-26] MEDS: POLYETHYLENE GLYCOL (HEALTHYLAX) 3350 17 GM PACKET PO SCH ×2 (11:25→22:26)
[2022-08-26] MEDS: QUEtiapine FUMARATE 25 MG TABLET PO SCH (11:25)
[2022-08-26] MEDS: ASPIRIN COATED 81 MG TABLET.EC PO SCH (11:25)
[2022-08-26] MEDS: ACETAMINOPHEN 325 MG TABLET (FP) PO PRN (22:21)
[2022-08-26] MEDS: DONEPEZIL HCL 5 MG TABLET (FP) PO SCH (22:21)
[2022-08-26] MEDS: ATORVASTATIN CA 80 MG TABLET (FP) PO SCH (22:24)
[2022-08-27] MEDS: INSULIN SLIDING SCALE (NOVOLOG) 1 VIAL SQ SCH ×4 (06:51→22:52)
[2022-08-27] MEDS: POLYETHYLENE GLYCOL (HEALTHYLAX) 3350 17 GM PACKET PO SCH ×2 (10:36→22:52)
[2022-08-27] MEDS: ASPIRIN COATED 81 MG TABLET.EC PO SCH (10:36)
[2022-08-27] MEDS: SENNOSIDES 8.6MG TABLET (FP) PO SCH ×2 (10:36→22:52)
[2022-08-27] MEDS: MEMANTINE HCL 10 MG TABLET (FP) PO SCH (10:36)
[2022-08-27] MEDS: QUEtiapine FUMARATE 25 MG TABLET PO SCH (10:36)
[2022-08-27] MEDS: amLODIPine BESYLATE 5 MG TABLET (FP) PO SCH (10:36)
[2022-08-27] MEDS: SULFAMETHOXAZOLE/TRIMETHOPRIM 800MG/160MG D.S. TABLET PO SCH ×2 (10:36→22:52)
[2022-08-27] MEDS: LISINOPRIL 20 MG TABLET PO SCH (10:36)
[2022-08-27] MEDS: SERTRALINE HCL 50 MG TABLET (FP) PO SCH ×2 (10:37→22:52)
[2022-08-27] MEDS: DONEPEZIL HCL 5 MG TABLET (FP) PO SCH (22:52)
[2022-08-27] MEDS: ATORVASTATIN CA 80 MG TABLET (FP) PO SCH (22:52)
[2022-08-28] MEDS: INSULIN SLIDING SCALE (NOVOLOG) 1 VIAL SQ SCH ×2 (06:31→11:05)
[2022-08-28] MEDS: QUEtiapine FUMARATE 25 MG TABLET PO SCH ×2 (08:50→09:02)
[2022-08-28] MEDS: ASPIRIN COATED 81 MG TABLET.EC PO SCH ×2 (08:50→09:01)
[2022-08-28] MEDS: LISINOPRIL 20 MG TABLET PO SCH ×2 (08:50→09:02)
[2022-08-28] MEDS: amLODIPine BESYLATE 5 MG TABLET (FP) PO SCH ×2 (08:50→09:01)
[2022-08-28] MEDS: SULFAMETHOXAZOLE/TRIMETHOPRIM 800MG/160MG D.S. TABLET PO SCH ×2 (08:50→09:01)
[2022-08-28] MEDS: MEMANTINE HCL 10 MG TABLET (FP) PO SCH ×2 (08:50→09:01)
[2022-08-28] MEDS: SERTRALINE HCL 50 MG TABLET (FP) PO SCH ×2 (08:51→09:02)
[2022-08-28] MEDS: POLYETHYLENE GLYCOL (HEALTHYLAX) 3350 17 GM PACKET PO SCH (09:01)
[2022-08-28] MEDS: SENNOSIDES 8.6MG TABLET (FP) PO SCH (09:02)
[2022-08-28 14:06] VITALS: BP 128/62; PULSE 62; TEMP 98
== END 2022-08-28 15:41 | DRG 689 ==
LOC: JER 13:35 → JERBED 19:19 → J4S 08-20 00:56
PROVIDERS: ADMIT Family Medicine; ATTEND Internal Medicine
DX: N39.0 Urinary tract infection, site not specified (principal); G93.41 Metabolic encephalopathy; F02.811 Dementia in other diseases classified elsewhere, unspecified severity, with agitation; Z16.12 Extended spectrum beta lactamase (ESBL) resistance; R31.9 Hematuria, unspecified; I10 Essential (primary) hypertension; I25.10 Atherosclerotic heart disease of native coronary artery without angina pectoris; R91.1 Solitary pulmonary nodule; E11.9 Type 2 diabetes mellitus without complications; G30.9 Alzheimer's disease, unspecified; K59.00 Constipation, unspecified; B96.4 Proteus (mirabilis) (morganii) as the cause of diseases classified elsewhere; E78.5 Hyperlipidemia, unspecified; Z95.1 Presence of aortocoronary bypass graft; R62.7 Adult failure to thrive
CPT/HCPCS: 36415; 71045-TC-FY; 72100-TC-FY; 74018-TC-FY; 74176-TC; 80053; 81003; 82962; 83735; 84100; 84443; 85025; 87086; 87186; 93005; 93010; 97116-GP; 97161-GP; 99285-25; C9803-CS; U0003; U0005

== ENCOUNTER 2022-09-10 20:18 | Inpatient (IN) | payer OTHER, MEDICARE ==
[2022-09-10 20:27] VITALS: BMI 23.6
[2022-09-10 22:18] LABS: EPI CELLS 17 /uL (0-25.1); HYALINE CASTS 5 /uL (0-3.1); URINE APPEARANCE CLEAR; URINE BACTERIA 40 /uL (0-1359); URINE BILIRUBIN NEGATIVE (NEGATIVE); URINE COLOR DK YELLOW; URINE GLUCOSE (UA) NEGATIVE (NEGATIVE); URINE KETONE TRACE (NEGATIVE); URINE LEUK ESTERASE 1+ (NEGATIVE); URINE NITRITE NEGATIVE (NEGATIVE); URINE PROTEIN TRACE (NEGATIVE); URINE RBC 16 /uL (0-23.9); URINE UROBILINOGEN 0.2 mg/dL (0.2-1.0); URINE WBC 34 /uL (0-25.8)
[2022-09-10 22:26] LABS: EOS % 1.1 % (0-4.5); HEMOGLOBIN 11.6 GM/dL (11.7-16.9); LYMPH % 23.3 % (8-40); MCH 29.5 pg (25.7-33.7); MCHC 33.2 g/dl (32.0-35.9); MEAN PLT VOLUME 8.4 fl (7.5-11.1); MONO % 8.6 % (3.8-10.2); PLATELET COUNT 256 10^3/uL (134-434); RBC 3.93 M/mm3 (4.00-5.60); RDW 15.5 % (11.9-15.9)
[2022-09-10 22:34] LABS: VENOUS BASE EXCESS -2.7 mmol/L (-2-2); VENOUS O2 SATURATION 58.1 % (70-80); VENOUS PCO2 35.6 mmHg (38-52); VENOUS PH 7.399 (7.310-7.410)
[2022-09-10 22:46] LABS: CALCIUM 9.8 mg/dL (8.5-10.1)
[2022-09-10 22:47] LABS: ALBUMIN 3.7 g/dl (3.4-5.0); BLOOD UREA NITROGEN 18.4 mg/dL (7-18); MAGNESIUM 1.4 mg/dL (1.8-2.4)
[2022-09-10 22:49] LABS: CREATININE 0.9 mg/dL (0.55-1.3)
[2022-09-10 22:50] LABS: PHOSPHOROUS 3.4 mg/dL (2.5-4.9)
[2022-09-10 22:52] LABS: TOT PROT 7.2 g/dl (6.4-8.2)
[2022-09-10 23:06] LABS: BILIRUBIN,TOTAL 0.4 mg/dL (0.2-1)
[2022-09-10 23:26] LABS: URINE CRYSTALS FEW /hpf
[2022-09-11] MEDS ORDERED: MAGNESIUM OXIDE 400 MG TABLET (FP) PO ONE ×2 (00:11→14:00)
[2022-09-11] MEDS ORDERED: MAGNESIUM OXIDE 400 MG TABLET (FP) ONE (00:34)
[2022-09-11] MEDS ORDERED: CEFTRIAXONE 1 GM in DEXTROSE 5%-WATER - 50 ML IVPB ONE (01:16)
[2022-09-11] MEDS ORDERED: CEFTRIAXONE 1 GM/50 ML BAG ONE (02:26)
[2022-09-11 07:36] LABS: BASO % 0.7 % (0-2.0); EOS % 2.4 % (0-4.5); HEMATOCRIT 36.1 % (35.4-49); HEMOGLOBIN 11.5 GM/dL (11.7-16.9); LYMPH % 18.3 % (8-40); MCH 28.1 pg (25.7-33.7); MCHC 31.9 g/dl (32.0-35.9); MEAN CELL VOLUME 88.2 fl (80-96); MEAN PLT VOLUME 8.7 fl (7.5-11.1); NEUT % 69.6 % (42.8-82.8); PLATELET COUNT 212 10^3/uL (134-434); RDW 15.3 % (11.9-15.9)
[2022-09-11 08:13] LABS: CALCIUM 9.3 mg/dL (8.5-10.1)
[2022-09-11 08:14] LABS: BLOOD UREA NITROGEN 18.1 mg/dL (7-18); MAGNESIUM 1.7 mg/dL (1.8-2.4)
[2022-09-11 08:17] LABS: CREATININE 0.9 mg/dL (0.55-1.3)
[2022-09-11] MEDS: MEMANTINE HCL 10 MG TABLET (FP) PO SCH (09:15)
[2022-09-11] MEDS ORDERED: POTASSIUM CHLORIDE TABS 20 MEQ TABLET.ER (FP) PO ONE (14:30)
[2022-09-11] MEDS ORDERED: HALOPERIDOL LACTATE 5 MG/ML IM ONE ×2 (14:45)
[2022-09-11] MEDS: SODIUM CHLORIDE 0.45%/POT 20 MEQ/1,000 ML INFUS.BAG IV SCH (15:38)
[2022-09-11] MEDS: LISINOPRIL 20 MG TABLET PO SCH (15:38)
[2022-09-12] MEDS: QUEtiapine FUMARATE 25 MG TABLET PO SCH ×2 (02:08→12:39)
[2022-09-12] MEDS: DONEPEZIL HCL 5 MG TABLET (FP) PO SCH (02:08)
[2022-09-12] MEDS: ATORVASTATIN CA 40 MG TABLET (FP) PO SCH (02:08)
[2022-09-12] MEDS ORDERED: QUEtiapine FUMARATE 25 MG TABLET ONE (12:33)
[2022-09-12] MEDS ORDERED: LISINOPRIL 20 MG TABLET ONE (12:33)
[2022-09-12] MEDS ORDERED: amLODIPine BESYLATE 5 MG TABLET (FP) ONE (12:33)
[2022-09-12] MEDS ORDERED: ASPIRIN 81 MG CHEWABLE TABLETS ONE (12:33)
[2022-09-12] MEDS: ASPIRIN COATED 81 MG TABLET.EC PO SCH (12:39)
[2022-09-12] MEDS: LISINOPRIL 20 MG TABLET PO SCH (12:39)
[2022-09-12] MEDS: amLODIPine BESYLATE 5 MG TABLET (FP) PO SCH (12:39)
[2022-09-12] MEDS: MEMANTINE HCL 10 MG TABLET (FP) PO SCH (12:40)
[2022-09-12 17:41] VITALS: RESP 18
[2022-09-12] MEDS: SODIUM CHLORIDE 0.45%/POT 20 MEQ/1,000 ML INFUS.BAG IV SCH (18:31)
[2022-09-13 06:47] VITALS: PULSE 64
[2022-09-13] MEDS: DONEPEZIL HCL 5 MG TABLET (FP) PO SCH (07:54)
[2022-09-13] MEDS: QUEtiapine FUMARATE 25 MG TABLET PO SCH ×2 (07:54→09:32)
[2022-09-13] MEDS: ATORVASTATIN CA 40 MG TABLET (FP) PO SCH (07:54)
[2022-09-13] MEDS: ASPIRIN COATED 81 MG TABLET.EC PO SCH (09:32)
[2022-09-13] MEDS: MEMANTINE HCL 10 MG TABLET (FP) PO SCH (09:32)
[2022-09-13] MEDS: amLODIPine BESYLATE 5 MG TABLET (FP) PO SCH (09:32)
[2022-09-13] MEDS: LISINOPRIL 20 MG TABLET PO SCH (09:32)
[2022-09-13 09:35] VITALS: BP 144/67; TEMP 98.6
[2022-09-13 11:22] LABS: CALCIUM 9.3 mg/dL (8.5-10.1); CREATININE 0.8 mg/dL (0.55-1.3)
[2022-09-13] MEDS ORDERED: POTASSIUM CHLORIDE TABS 20 MEQ TABLET.ER (FP) PO ONE (16:14)
[2022-09-13] MEDS ORDERED: MAGNESIUM OXIDE 400 MG TABLET (FP) PO ONE (16:15)
[2022-09-13] MEDS: SODIUM CHLORIDE 0.45%/POT 20 MEQ/1,000 ML INFUS.BAG IV SCH (16:46)
[2022-09-13] MEDS ORDERED: OLANZapine 5 MG TABLET PO SCH (22:00)
== END 2022-09-13 18:25 | DRG 884 ==
LOC: JER 20:18 → JERBED 09-11 00:23 → OBSVTOIN 09-12 12:37 → J8W 09-13 06:36
PROVIDERS: ADMIT Internal Medicine; ATTEND Family Medicine
DX: F03.911 Unspecified dementia, unspecified severity, with agitation (principal); G93.41 Metabolic encephalopathy; N39.0 Urinary tract infection, site not specified; E78.5 Hyperlipidemia, unspecified; I25.10 Atherosclerotic heart disease of native coronary artery without angina pectoris; E11.9 Type 2 diabetes mellitus without complications; N40.0 Benign prostatic hyperplasia without lower urinary tract symptoms; I10 Essential (primary) hypertension; F41.8 Other specified anxiety disorders; E83.42 Hypomagnesemia; E86.0 Dehydration; R91.1 Solitary pulmonary nodule; R26.81 Unsteadiness on feet; E87.6 Hypokalemia; K21.9 Gastro-esophageal reflux disease without esophagitis; Z85.46 Personal history of malignant neoplasm of prostate; Z95.1 Presence of aortocoronary bypass graft; Z86.73 Personal history of transient ischemic attack (TIA), and cerebral infarction without residual deficits
CPT/HCPCS: 36415; 70450-TC; 71045-TC-FY; 71250-TC; 80048; 80053; 81003; 82803; 83605; 83735; 84100; 84484; 85025; 87040; 87086; 93005; 93010; 99285-25; C9803-CS; G0378; U0003; U0005

== ENCOUNTER 2022-10-19 11:51 | Observation (INO) | payer OTHER, MEDICARE ==
[2022-10-19] MEDS ORDERED: SODIUM CHLORIDE 0.9% 500 ML INFUS.BAG IV ONE (12:58)
[2022-10-19] MEDS ORDERED: HALOPERIDOL LACTATE 5 MG/ML IM ONE ×2 (13:01→13:02)
[2022-10-19 14:08] LABS: VENOUS BASE EXCESS 2.4 mmol/L (-2-2); VENOUS O2 SATURATION 46.5 % (70-80); VENOUS PCO2 46.8 mmHg (38-52); VENOUS PH 7.392 (7.310-7.410)
[2022-10-19 14:09] LABS: BASO % 0.4 % (0-2.0); EOS % 2.7 % (0-4.5); HEMATOCRIT 33.4 % (35.4-49); HEMOGLOBIN 11.2 GM/dL (11.7-16.9); LYMPH % 11.3 % (8-40); MCH 29.9 pg (25.7-33.7); MCHC 33.4 g/dl (32.0-35.9); MEAN CELL VOLUME 89.4 fl (80-96); MEAN PLT VOLUME 8.5 fl (7.5-11.1); MONO % 8.4 % (3.8-10.2); NEUT % 77.2 % (42.8-82.8); PLATELET COUNT 180 10^3/uL (134-434); RBC 3.74 M/mm3 (4.00-5.60); RDW 15.5 % (11.9-15.9); WHITE BLOOD COUNT 10.5 K/mm3 (4.0-10.0)
[2022-10-19 14:16] LABS: INR 1.08 (0.83-1.09); PROTHROMBIN TIME (PATIENT) 12.4 SEC (9.7-13.0)
[2022-10-19 14:19] LABS: ACTIVATED PTT 29.7 SECONDS (25.2-36.5)
[2022-10-19 14:26] LABS: CHLORIDE 107 mmol/L (98-107); SODIUM 144 mmol/L (136-145)
[2022-10-19 14:29] LABS: ALBUMIN 2.8 g/dl (3.4-5.0); ANION GAP 4 MMOL/L (8-16); BLOOD UREA NITROGEN 18.1 mg/dL (7-18); CALCIUM 8.8 mg/dL (8.5-10.1); CO2 33 mmol/L (21-32); GLUCOSE,RANDOM 111 mg/dL (74-106)
[2022-10-19 14:32] LABS: CHOLESTEROL 112 mg/dL (50-200); SGOT/AST 13 U/L (15-37); SGPT/ALT 15 U/L (13-61); TRIGLYCERIDES 80 mg/dL (0-150)
[2022-10-19 14:33] LABS: CREATININE 0.9 mg/dL (0.55-1.3); LDL CHOLESTEROL (ONLY SJRH) 51 mg/dL (5-100)
[2022-10-19 14:34] LABS: BILIRUBIN,TOTAL 0.3 mg/dL (0.2-1); TOT PROT 6.2 g/dl (6.4-8.2)
[2022-10-19 14:35] LABS: ALK PHOS 55 U/L (45-117); HDL CHOLESTEROL 49 mg/dL (40-60); N-TERMINAL BNP 856.9 pg/ml (5-450)
[2022-10-19 20:01] LABS: URINE APPEARANCE CLOUDY; URINE BILIRUBIN NEGATIVE (NEGATIVE); URINE COLOR YELLOW; URINE GLUCOSE (UA) NEGATIVE (NEGATIVE); URINE KETONE 1+ (NEGATIVE); URINE LEUK ESTERASE NEGATIVE (NEGATIVE); URINE NITRITE NEGATIVE (NEGATIVE); URINE PROTEIN NEGATIVE (NEGATIVE); URINE UROBILINOGEN 0.2 mg/dL (0.2-1.0)
[2022-10-19] MEDS: ATORVASTATIN CA 80 MG TABLET (FP) PO SCH (23:46)
[2022-10-19] MEDS: HEPARIN NA (PORCINE) 5,000 UNITS/ML 1ML VIAL SQ SCH (23:46)
[2022-10-19] MEDS: QUEtiapine FUMARATE 25 MG TABLET PO SCH (23:46)
[2022-10-20 02:32] VITALS: RESP 20; BMI 26.8
[2022-10-20] MEDS: LISINOPRIL 20 MG TABLET PO SCH (09:59)
[2022-10-20] MEDS: QUEtiapine FUMARATE 25 MG TABLET PO SCH ×2 (09:59→23:29)
[2022-10-20] MEDS: ASPIRIN 81 MG CHEWABLE TABLETS PO SCH (09:59)
[2022-10-20] MEDS: HEPARIN NA (PORCINE) 5,000 UNITS/ML 1ML VIAL SQ SCH ×2 (10:00→23:29)
[2022-10-20 10:06] LABS: BASO % 0.4 % (0-2.0); EOS % 5.3 % (0-4.5); HEMATOCRIT 30.4 % (35.4-49); HEMOGLOBIN 10.3 GM/dL (11.7-16.9); LYMPH % 18.9 % (8-40); MCH 30.2 pg (25.7-33.7); MCHC 33.9 g/dl (32.0-35.9); MEAN CELL VOLUME 89.2 fl (80-96); MEAN PLT VOLUME 8.3 fl (7.5-11.1); MONO % 11.3 % (3.8-10.2); NEUT % 64.1 % (42.8-82.8); PLATELET COUNT 153 10^3/uL (134-434); RBC 3.41 M/mm3 (4.00-5.60); RDW 15.9 % (11.9-15.9); WHITE BLOOD COUNT 6.3 K/mm3 (4.0-10.0)
[2022-10-20 10:15] LABS: INR 1.09 (0.83-1.09); PROTHROMBIN TIME (PATIENT) 12.5 SEC (9.7-13.0)
[2022-10-20 10:18] LABS: ACTIVATED PTT 28.1 SECONDS (25.2-36.5)
[2022-10-20 11:03] LABS: ALBUMIN 2.5 g/dl (3.4-5.0); CALCIUM 8.4 mg/dL (8.5-10.1)
[2022-10-20 11:04] LABS: BLOOD UREA NITROGEN 13.7 mg/dL (7-18); MAGNESIUM 1.5 mg/dL (1.8-2.4)
[2022-10-20 11:07] LABS: CREATININE 0.8 mg/dL (0.55-1.3); PHOSPHOROUS 2.9 mg/dL (2.5-4.9)
[2022-10-20 11:08] LABS: BILIRUBIN,TOTAL 0.4 mg/dL (0.2-1); TOT PROT 5.5 g/dl (6.4-8.2)
[2022-10-20 11:12] LABS: N-TERMINAL BNP 848.7 pg/ml (5-450)
[2022-10-20] MEDS ORDERED: POTASSIUM CHLORIDE ORAL LIQUID 20 MEQ/15 ML PO ONE (17:15)
[2022-10-20] MEDS ORDERED: MAGNESIUM SULF 50% (8.12 MEQ/2 ML-1 GM VIAL) IVPB ONE (17:15)
[2022-10-20] MEDS: KCL 10 MEQ IVPB 10 MEQ/100 ML INFUS.BAG IVPB SCH ×3 (18:03→21:50)
[2022-10-20] MEDS ORDERED: HALOPERIDOL LACTATE 5 MG/ML IM ONE (21:08)
[2022-10-20] MEDS ORDERED: QUEtiapine FUMARATE 25 MG TABLET PO SCH (22:00)
[2022-10-20] MEDS: ATORVASTATIN CA 80 MG TABLET (FP) PO SCH (23:29)
[2022-10-20] MEDS: DONEPEZIL HCL 5 MG TABLET (FP) PO SCH (23:29)
[2022-10-21 09:41] LABS: HEMATOCRIT 32.5 % (35.4-49); HEMOGLOBIN 10.8 GM/dL (11.7-16.9); MCHC 33.4 g/dl (32.0-35.9); MEAN CELL VOLUME 89.8 fl (80-96); MEAN PLT VOLUME 8.3 fl (7.5-11.1); PLATELET COUNT 140 10^3/uL (134-434); RBC 3.62 M/mm3 (4.00-5.60); RDW 16.2 % (11.9-15.9); WHITE BLOOD COUNT 6.7 K/mm3 (4.0-10.0)
[2022-10-21] MEDS: ASPIRIN 81 MG CHEWABLE TABLETS PO SCH (09:58)
[2022-10-21] MEDS: HEPARIN NA (PORCINE) 5,000 UNITS/ML 1ML VIAL SQ SCH ×2 (09:58→23:45)
[2022-10-21] MEDS: LISINOPRIL 20 MG TABLET PO SCH (09:58)
[2022-10-21] MEDS: QUEtiapine FUMARATE 25 MG TABLET PO SCH ×2 (09:58→23:44)
[2022-10-21] MEDS ORDERED: ASPIRIN COATED 81 MG TABLET.EC PO SCH (10:00)
[2022-10-21] MEDS ORDERED: ATORVASTATIN CA 80 MG TABLET (FP) PO SCH (10:00)
[2022-10-21 10:11] LABS: CALCIUM 8.4 mg/dL (8.5-10.1)
[2022-10-21 10:16] LABS: CREATININE 0.8 mg/dL (0.55-1.3)
[2022-10-21 10:19] LABS: BLOOD UREA NITROGEN 16.7 mg/dL (7-18)
[2022-10-21] MEDS: DONEPEZIL HCL 5 MG TABLET (FP) PO SCH (23:44)
[2022-10-21] MEDS: ATORVASTATIN CA 80 MG TABLET (FP) PO SCH (23:44)
[2022-10-22] MEDS ORDERED: HALOPERIDOL LACTATE 5 MG/ML IM PRN (08:26)
[2022-10-22] MEDS ORDERED: QUEtiapine FUMARATE 50 MG TABLET PO SCH (10:00)
[2022-10-22] MEDS: HEPARIN NA (PORCINE) 5,000 UNITS/ML 1ML VIAL SQ SCH (10:34)
[2022-10-22] MEDS: LISINOPRIL 20 MG TABLET PO SCH (10:34)
[2022-10-22] MEDS: ASPIRIN 81 MG CHEWABLE TABLETS PO SCH (10:34)
[2022-10-22 14:34] VITALS: BP 137/72; PULSE 76; TEMP 99.4
== END 2022-10-22 16:45 ==
LOC: JER 11:51 → JERBED 15:23 → J8W 19:50
PROVIDERS: ADMIT Internal Medicine; ATTEND Family Medicine
PROC: 3E023GC Introduction of Other Therapeutic Substance into Muscle, Percutaneous Approach (ICD-10-PCS; principal; 2022-10-19)
PROC: 3E0337Z Introduction of Electrolytic and Water Balance Substance into Peripheral Vein, Percutaneous Approach (ICD-10-PCS; 2022-10-19)
DX: R41.82 Altered mental status, unspecified (principal); E87.6 Hypokalemia; E83.42 Hypomagnesemia; N40.0 Benign prostatic hyperplasia without lower urinary tract symptoms; N20.0 Calculus of kidney; M62.81 Muscle weakness (generalized); I25.10 Atherosclerotic heart disease of native coronary artery without angina pectoris; I10 Essential (primary) hypertension; K21.9 Gastro-esophageal reflux disease without esophagitis; E11.9 Type 2 diabetes mellitus without complications; F41.8 Other specified anxiety disorders; Z85.46 Personal history of malignant neoplasm of prostate; Z95.1 Presence of aortocoronary bypass graft; M19.90 Unspecified osteoarthritis, unspecified site; Z87.891 Personal history of nicotine dependence; Z88.0 Allergy status to penicillin
CPT/HCPCS: 0241U-QW; 36415; 70450-TC; 71045-TC-FY; 80048; 80053; 80061; 81003; 82550; 82553; 82803; 82962; 83036; 83605; 83735; 83880; 84100; 84436; 84443; 84484; 85025; 85027; 85610; 85730; 86140; 86850; 86900; 86901; 87040; 93005; 93010; 96360; 99285-25; C9803-CS; G0378; J1644; U0003; U0005

== ENCOUNTER 2022-11-02 06:13 | Inpatient (IN) | payer OTHER, MEDICARE ==
[2022-11-02 06:30] VITALS: BMI 21.4
[2022-11-02 06:58] LABS: BASO % 0.5 % (0-2.0); EOS % 0.5 % (0-4.5); HEMATOCRIT 38.7 % (35.4-49); HEMOGLOBIN 12.4 GM/dL (11.7-16.9); LYMPH % 4.9 % (8-40); MCH 29.1 pg (25.7-33.7); MEAN CELL VOLUME 91.1 fl (80-96); MEAN PLT VOLUME 7.9 fl (7.5-11.1); MONO % 4.8 % (3.8-10.2); NEUT % 89.3 % (42.8-82.8); PLATELET COUNT 414 10^3/uL (134-434); RBC 4.25 M/mm3 (4.00-5.60); RDW 15.6 % (11.9-15.9)
[2022-11-02 07:12] LABS: INR 1.08 (0.83-1.09); PROTHROMBIN TIME (PATIENT) 12.4 SEC (9.7-13.0)
[2022-11-02 07:15] LABS: ACTIVATED PTT 30.9 SECONDS (25.2-36.5)
[2022-11-02] MEDS ORDERED: PANTOPRAZOLE SODIUM 40 MG VIAL IVPUSH ONE (07:20)
[2022-11-02 07:26] LABS: BLOOD UREA NITROGEN 21.9 mg/dL (7-18)
[2022-11-02 07:29] LABS: CREATININE 1.2 mg/dL (0.55-1.3)
[2022-11-02] MEDS ORDERED: ONDANSETRON 4 MG/2 ML VIAL IVPUSH ONE (07:29)
[2022-11-02 07:31] LABS: TOT PROT 7.3 g/dl (6.4-8.2)
[2022-11-02 07:32] LABS: BILIRUBIN,TOTAL 0.3 mg/dL (0.2-1)
[2022-11-02] MEDS ORDERED: PANTOPRAZOLE SODIUM 40 MG VIAL ONE (07:32)
[2022-11-02 07:36] LABS: CALCIUM 9.8 mg/dL (8.5-10.1)
[2022-11-02] MEDS ORDERED: ONDANSETRON 4 MG/2 ML VIAL ONE (07:45)
[2022-11-02] MEDS ORDERED: LACTATED RINGERS SOLUTION 1000 ML INFUS.BAG IV ONE (08:57)
[2022-11-02] MEDS: DEXTROSE 5%-0.45% SALINE 1,000 ML IV SCH (17:56)
[2022-11-02 18:50] LABS: EPI CELLS 4 /uL (0-25.1); HYALINE CASTS 1 /uL (0-3.1); PH,URINE 5.5 (5.0-8.0); URINE APPEARANCE CLEAR; URINE BACTERIA 6 /uL (0-1359); URINE BILIRUBIN NEGATIVE (NEGATIVE); URINE COLOR YELLOW; URINE GLUCOSE (UA) NEGATIVE (NEGATIVE); URINE KETONE NEGATIVE (NEGATIVE); URINE LEUK ESTERASE NEGATIVE (NEGATIVE); URINE NITRITE NEGATIVE (NEGATIVE); URINE PROTEIN NEGATIVE (NEGATIVE); URINE RBC 6 /uL (0-23.9); URINE UROBILINOGEN 0.2 mg/dL (0.2-1.0); URINE WBC 7 /uL (0-25.8)
[2022-11-02 20:01] LABS: BASO % 0.5 % (0-2.0); EOS % 15.6 % (0-4.5); HEMATOCRIT 28.3 % (35.4-49); HEMOGLOBIN 9.2 GM/dL (11.7-16.9); LYMPH % 17.8 % (8-40); MCH 29.2 pg (25.7-33.7); MCHC 32.5 g/dl (32.0-35.9); MEAN PLT VOLUME 7.9 fl (7.5-11.1); MONO % 6.7 % (3.8-10.2); NEUT % 59.4 % (42.8-82.8); PLATELET COUNT 269 10^3/uL (134-434); RBC 3.14 M/mm3 (4.00-5.60); RDW 15.6 % (11.9-15.9); WHITE BLOOD COUNT 8.9 K/mm3 (4.0-10.0)
[2022-11-02] MEDS ORDERED: QUEtiapine FUMARATE 25 MG TABLET PO ONE (20:16)
[2022-11-02] MEDS ORDERED: ACETAMINOPHEN 1000 MG/100 ML BAG IVPB ONE (20:17)
[2022-11-02] MEDS ORDERED: ACETAMINOPHEN INJECTION 100 ML IVPB ONE (20:18)
[2022-11-02] MEDS ORDERED: QUEtiapine FUMARATE 25 MG TABLET ONE (20:18)
[2022-11-03] MEDS ORDERED: DEXTROSE 5%-0.45% SALINE 1,000 ML IV SCH (00:45)
[2022-11-03] MEDS: DIVALPROEX SODIUM 125 MG SPRINKLE CAPS PO SCH ×3 (06:38→21:05)
[2022-11-03] MEDS: INSULIN SLIDING SCALE (NOVOLOG) 1 VIAL SQ SCH ×4 (06:39→21:17)
[2022-11-03] MEDS: DEXTROSE 5%-0.45% SALINE 1,000 ML IV SCH (06:50)
[2022-11-03] MEDS: amLODIPine BESYLATE 10 MG TABLET (FP) PO SCH (09:56)
[2022-11-03] MEDS ORDERED: PANTOPRAZOLE SODIUM 40 MG VIAL IVPUSH SCH (10:00)
[2022-11-03] MEDS ORDERED: SERTRALINE HCL 50 MG TABLET (FP) PO SCH (10:00)
[2022-11-03 10:04] LABS: HEMATOCRIT 29.8 % (35.4-49); HEMOGLOBIN 9.8 GM/dL (11.7-16.9); MCH 29.7 pg (25.7-33.7); MCHC 32.9 g/dl (32.0-35.9); MEAN CELL VOLUME 90.1 fl (80-96); MEAN PLT VOLUME 8.1 fl (7.5-11.1); PLATELET COUNT 273 10^3/uL (134-434); RBC 3.31 M/mm3 (4.00-5.60); RDW 15.6 % (11.9-15.9); WHITE BLOOD COUNT 7.1 K/mm3 (4.0-10.0)
[2022-11-03 10:46] LABS: BLOOD UREA NITROGEN 12.8 mg/dL (7-18); CREATININE 0.8 mg/dL (0.55-1.3)
[2022-11-03 10:47] LABS: BILIRUBIN,TOTAL 0.3 mg/dL (0.2-1); TOT PROT 5.6 g/dl (6.4-8.2)
[2022-11-03 10:48] LABS: CALCIUM 9.3 mg/dL (8.5-10.1)
[2022-11-03 10:50] LABS: ALBUMIN 2.4 g/dl (3.4-5.0)
[2022-11-03 11:12] LABS: ANISOCYTOSIS 0; MACROCYTOSIS 0
[2022-11-03] MEDS: PANTOPRAZOLE 40 MG TABLET PO SCH ×2 (21:05→21:17)
[2022-11-03] MEDS: QUEtiapine FUMARATE 25 MG TABLET PO SCH (21:06)
[2022-11-03] MEDS: ATORVASTATIN CA 80 MG TABLET (FP) PO SCH ×2 (21:06→21:16)
[2022-11-03] MEDS ORDERED: ONDANSETRON 4 MG/2 ML VIAL IVPUSH ONE (21:33)
[2022-11-04] MEDS: DIVALPROEX SODIUM 125 MG SPRINKLE CAPS PO SCH ×3 (05:39→21:44)
[2022-11-04] MEDS: INSULIN SLIDING SCALE (NOVOLOG) 1 VIAL SQ SCH ×4 (10:00→21:58)
[2022-11-04] MEDS: amLODIPine BESYLATE 10 MG TABLET (FP) PO SCH (11:40)
[2022-11-04] MEDS: LISINOPRIL 10 MG TABLET PO SCH (11:40)
[2022-11-04] MEDS: SERTRALINE HCL 50 MG TABLET (FP) PO SCH (11:41)
[2022-11-04] MEDS: PANTOPRAZOLE 40 MG TABLET PO SCH (11:41)
[2022-11-04] MEDS ORDERED: HALOPERIDOL LACTATE 5 MG/ML IM ONE (20:06)
[2022-11-04] MEDS: QUEtiapine FUMARATE 25 MG TABLET PO SCH (21:44)
[2022-11-04] MEDS: ATORVASTATIN CA 80 MG TABLET (FP) PO SCH (21:44)
[2022-11-05] MEDS: DIVALPROEX SODIUM 125 MG SPRINKLE CAPS PO SCH ×4 (07:03→22:50)
[2022-11-05] MEDS: INSULIN SLIDING SCALE (NOVOLOG) 1 VIAL SQ SCH ×4 (07:06→22:49)
[2022-11-05] MEDS: amLODIPine BESYLATE 5 MG TABLET (FP) PO SCH (10:31)
[2022-11-05] MEDS: LISINOPRIL 10 MG TABLET PO SCH (10:31)
[2022-11-05] MEDS: PANTOPRAZOLE 40 MG TABLET PO SCH ×3 (10:35→22:49)
[2022-11-05] MEDS: SERTRALINE HCL 50 MG TABLET (FP) PO SCH ×2 (10:35→10:38)
[2022-11-05 17:33] LABS: BASO % 0.4 % (0-2.0); EOS % 18.4 % (0-4.5); HEMATOCRIT 30.7 % (35.4-49); HEMOGLOBIN 10.2 GM/dL (11.7-16.9); LYMPH % 26.7 % (8-40); MCH 29.7 pg (25.7-33.7); MCHC 33.4 g/dl (32.0-35.9); MEAN PLT VOLUME 7.9 fl (7.5-11.1); MONO % 9.1 % (3.8-10.2); NEUT % 45.4 % (42.8-82.8); PLATELET COUNT 255 10^3/uL (134-434); RBC 3.45 M/mm3 (4.00-5.60); RDW 15.5 % (11.9-15.9); WHITE BLOOD COUNT 6.1 K/mm3 (4.0-10.0)
[2022-11-05 18:12] LABS: CALCIUM 8.8 mg/dL (8.5-10.1)
[2022-11-05 18:13] LABS: BLOOD UREA NITROGEN 11.4 mg/dL (7-18)
[2022-11-05 18:16] LABS: CREATININE 0.9 mg/dL (0.55-1.3)
[2022-11-05] MEDS: QUEtiapine FUMARATE 25 MG TABLET PO SCH (22:49)
[2022-11-05] MEDS: ATORVASTATIN CA 80 MG TABLET (FP) PO SCH (22:49)
[2022-11-06] MEDS: DIVALPROEX SODIUM 125 MG SPRINKLE CAPS PO SCH ×3 (06:34→21:44)
[2022-11-06] MEDS: INSULIN SLIDING SCALE (NOVOLOG) 1 VIAL SQ SCH ×4 (06:34→22:37)
[2022-11-06 09:00] LABS: HEMOGLOBIN 9.9 GM/dL (11.7-16.9); MCH 30.4 pg (25.7-33.7); MCHC 34.2 g/dl (32.0-35.9); MEAN CELL VOLUME 88.9 fl (80-96); PLATELET COUNT 220 10^3/uL (134-434); RBC 3.26 M/mm3 (4.00-5.60); RDW 15.4 % (11.9-15.9); WHITE BLOOD COUNT 5.9 K/mm3 (4.0-10.0)
[2022-11-06 09:34] LABS: ALBUMIN 2.4 g/dl (3.4-5.0); CALCIUM 8.9 mg/dL (8.5-10.1)
[2022-11-06 09:36] LABS: BLOOD UREA NITROGEN 12.7 mg/dL (7-18)
[2022-11-06 09:38] LABS: CREATININE 0.8 mg/dL (0.55-1.3)
[2022-11-06 09:39] LABS: BILIRUBIN,TOTAL 0.3 mg/dL (0.2-1); TOT PROT 5.7 g/dl (6.4-8.2)
[2022-11-06] MEDS ORDERED: HALOPERIDOL LACTATE 5 MG/ML IM ONE (10:30)
[2022-11-06] MEDS: PANTOPRAZOLE 40 MG TABLET PO SCH ×2 (12:04→21:45)
[2022-11-06] MEDS: amLODIPine BESYLATE 5 MG TABLET (FP) PO SCH (12:04)
[2022-11-06] MEDS: SERTRALINE HCL 50 MG TABLET (FP) PO SCH (12:04)
[2022-11-06] MEDS: LISINOPRIL 10 MG TABLET PO SCH (12:04)
[2022-11-06] MEDS ORDERED: POTASSIUM CHLORIDE TABS 10 MEQ TABLET.ER (FP) PO ONE (12:10)
[2022-11-06] MEDS: HALOPERIDOL LACTATE 5 MG/ML IM PRN (16:34)
[2022-11-06] MEDS: ATORVASTATIN CA 80 MG TABLET (FP) PO SCH (21:45)
[2022-11-06] MEDS: QUEtiapine FUMARATE 25 MG TABLET PO SCH (21:45)
[2022-11-06 22:13] VITALS: RESP 20
[2022-11-07] MEDS: DIVALPROEX SODIUM 125 MG SPRINKLE CAPS PO SCH ×2 (05:23→13:54)
[2022-11-07] MEDS: INSULIN SLIDING SCALE (NOVOLOG) 1 VIAL SQ SCH ×2 (06:37→12:15)
[2022-11-07] MEDS: LISINOPRIL 10 MG TABLET PO SCH (11:59)
[2022-11-07] MEDS: PANTOPRAZOLE 40 MG TABLET PO SCH (12:00)
[2022-11-07] MEDS: SERTRALINE HCL 50 MG TABLET (FP) PO SCH (12:00)
[2022-11-07] MEDS: amLODIPine BESYLATE 5 MG TABLET (FP) PO SCH (12:00)
[2022-11-07] MEDS: HALOPERIDOL LACTATE 5 MG/ML IM PRN (12:10)
[2022-11-07 14:51] VITALS: PULSE 60; TEMP 97.7
[2022-11-07] MEDS ORDERED: amLODIPine BESYLATE 5 MG TABLET (FP) PO ONE (16:15)
[2022-11-07 16:20] VITALS: BP 196/75
== END 2022-11-07 18:00 | disposition home or self-care (01) | DRG 378 ==
LOC: JER 06:13 → JERBED 13:07 → J5S 22:40 → J7W 11-04 21:22
PROVIDERS: ADMIT Family Medicine; ATTEND Family Medicine
DX: K92.0 Hematemesis (principal); F03.911 Unspecified dementia, unspecified severity, with agitation; I69.354 Hemiplegia and hemiparesis following cerebral infarction affecting left non-dominant side; I25.10 Atherosclerotic heart disease of native coronary artery without angina pectoris; I10 Essential (primary) hypertension; E11.9 Type 2 diabetes mellitus without complications; Z85.46 Personal history of malignant neoplasm of prostate; N40.0 Benign prostatic hyperplasia without lower urinary tract symptoms; Z95.1 Presence of aortocoronary bypass graft; K21.9 Gastro-esophageal reflux disease without esophagitis
CPT/HCPCS: 36415; 71045-TC-FY; 74174-TC; 80048; 80053; 81003; 82272; 82962; 83540; 83550; 84484; 85025; 85027; 85610; 85730; 86850; 86900; 86901; 87086; 93005; 93010; 99285-25; C9803-CS; U0003; U0005

== ENCOUNTER 2022-12-14 15:49 | Observation (INO) | payer OTHER, MEDICARE ==
[2022-12-14 16:11] VITALS: BMI 24.5
[2022-12-14 17:49] LABS: VENOUS BASE EXCESS -1.1 mmol/L (-2-2); VENOUS O2 SATURATION 41.9 % (70-80); VENOUS PCO2 53.1 mmHg (38-52); VENOUS PH 7.312 (7.310-7.410)
[2022-12-14 17:51] LABS: BASO % 0.2 % (0-2.0); EOS % 1.3 % (0-4.5); HEMATOCRIT 34.1 % (35.4-49); HEMOGLOBIN 11.3 GM/dL (11.7-16.9); LYMPH % 16.5 % (8-40); MCH 29.1 pg (25.7-33.7); MCHC 33.1 g/dl (32.0-35.9); MEAN PLT VOLUME 8.6 fl (7.5-11.1); MONO % 8.7 % (3.8-10.2); NEUT % 73.3 % (42.8-82.8); PLATELET COUNT 185 10^3/uL (134-434); RBC 3.88 M/mm3 (4.00-5.60); RDW 15.8 % (11.9-15.9); WHITE BLOOD COUNT 9.5 K/mm3 (4.0-10.0)
[2022-12-14 17:56] LABS: INR 1.06 (0.83-1.09); PROTHROMBIN TIME (PATIENT) 12.3 SEC (9.7-13.0)
[2022-12-14 18:21] LABS: ALBUMIN 2.7 g/dl (3.4-5.0); CALCIUM 8.9 mg/dL (8.5-10.1)
[2022-12-14 18:22] LABS: BLOOD UREA NITROGEN 16.5 mg/dL (7-18)
[2022-12-14 18:25] LABS: CREATININE 0.8 mg/dL (0.55-1.3)
[2022-12-14 18:26] LABS: TOT PROT 6.3 g/dl (6.4-8.2)
[2022-12-14 18:27] LABS: BILIRUBIN,TOTAL 0.6 mg/dL (0.2-1)
[2022-12-14 18:35] LABS: URINE APPEARANCE Error; URINE BILIRUBIN NEGATIVE (NEGATIVE); URINE COLOR YELLOW; URINE GLUCOSE (UA) NEGATIVE (NEGATIVE); URINE KETONE NEGATIVE (NEGATIVE); URINE LEUK ESTERASE NEGATIVE (NEGATIVE); URINE NITRITE NEGATIVE (NEGATIVE); URINE PROTEIN NEGATIVE (NEGATIVE); URINE UROBILINOGEN 0.2 mg/dL (0.2-1.0)
[2022-12-14] MEDS: SODIUM CHLORIDE 1,000 ML IV SCH (20:00)
[2022-12-14] MEDS ORDERED: QUEtiapine FUMARATE 100 MG TABLET (FP) PO ONE (21:09)
[2022-12-14] MEDS ORDERED: QUEtiapine FUMARATE 100 MG TABLET (FP) ONE (21:12)
[2022-12-14] MEDS ORDERED: LISINOPRIL 20 MG TABLET PO ONE (23:30)
[2022-12-14] MEDS ORDERED: amLODIPine BESYLATE 10 MG TABLET (FP) PO ONE (23:30)
[2022-12-14] MEDS ORDERED: amLODIPine BESYLATE 10 MG TABLET (FP) ONE (23:32)
[2022-12-14] MEDS ORDERED: LISINOPRIL 20 MG TABLET ONE (23:32)
[2022-12-15 07:37] LABS: CALCIUM 8.4 mg/dL (8.5-10.1)
[2022-12-15 07:38] LABS: ALBUMIN 2.4 g/dl (3.4-5.0); BLOOD UREA NITROGEN 18.6 mg/dL (7-18); MAGNESIUM 1.8 mg/dL (1.8-2.4)
[2022-12-15 07:41] LABS: CREATININE 0.8 mg/dL (0.55-1.3)
[2022-12-15 07:43] LABS: BILIRUBIN,TOTAL 0.3 mg/dL (0.2-1); TOT PROT 5.5 g/dl (6.4-8.2)
[2022-12-15 08:20] LABS: BASO % 0.5 % (0-2.0); EOS % 3.9 % (0-4.5); HEMATOCRIT 31.5 % (35.4-49); HEMOGLOBIN 10.5 GM/dL (11.7-16.9); LYMPH % 25.3 % (8-40); MCH 30.1 pg (25.7-33.7); MCHC 33.5 g/dl (32.0-35.9); MEAN CELL VOLUME 89.7 fl (80-96); MONO % 13.8 % (3.8-10.2); NEUT % 56.5 % (42.8-82.8); PLATELET COUNT 163 10^3/uL (134-434); RDW 15.7 % (11.9-15.9)
[2022-12-15] MEDS ORDERED: amLODIPine BESYLATE 5 MG TABLET (FP) PO SCH (10:00)
[2022-12-15] MEDS ORDERED: LISINOPRIL 10 MG TABLET PO SCH ×2 (10:00→11:19)
[2022-12-15] MEDS ORDERED: ASPIRIN COATED 81 MG TABLET.EC PO SCH (10:00)
[2022-12-15] MEDS ORDERED: SERTRALINE HCL 50 MG TABLET (FP) PO SCH (10:00)
[2022-12-15] MEDS ORDERED: PANTOPRAZOLE 40 MG TABLET PO SCH (10:00)
[2022-12-15] MEDS ORDERED: PANTOPRAZOLE 40 MG TABLET PO ONE (11:48)
[2022-12-15] MEDS ORDERED: amLODIPine BESYLATE 5 MG TABLET (FP) ONE (11:48)
[2022-12-15] MEDS ORDERED: ASPIRIN COATED 81 MG TABLET.EC ONE (11:49)
[2022-12-15] MEDS ORDERED: SERTRALINE HCL 50 MG TABLET (FP) ONE (11:49)
[2022-12-15] MEDS ORDERED: DIVALPROEX SODIUM 125 MG SPRINKLE CAPS PO SCH (14:00)
[2022-12-15] MEDS ORDERED: LISINOPRIL 10 MG TABLET PO ONE (14:45)
[2022-12-15] MEDS ORDERED: DIVALPROEX SODIUM 125 MG SPRINKLE CAPS PO ONE (15:08)
[2022-12-15] MEDS ORDERED: LISINOPRIL 10 MG TABLET ONE (15:08)
[2022-12-15] MEDS: SODIUM CHLORIDE 1,000 ML IV SCH (16:30)
[2022-12-15 17:16] VITALS: BP 180/64; PULSE 62; RESP 18; TEMP 97
[2022-12-15] MEDS ORDERED: ATORVASTATIN CA 80 MG TABLET (FP) PO SCH (22:00)
== END 2022-12-15 17:29 ==
LOC: JER 15:49 → JERBED 23:03
PROVIDERS: ADMIT Internal Medicine; ATTEND Family Medicine
PROC: 3E0337Z Introduction of Electrolytic and Water Balance Substance into Peripheral Vein, Percutaneous Approach (ICD-10-PCS; principal; 2022-12-14)
DX: I25.10 Atherosclerotic heart disease of native coronary artery without angina pectoris (principal); Z95.5 Presence of coronary angioplasty implant and graft; I11.9 Hypertensive heart disease without heart failure; E11.9 Type 2 diabetes mellitus without complications; F03.90 Unspecified dementia, unspecified severity, without behavioral disturbance, psychotic disturbance, mood disturbance, and anxiety; F32.A Depression, unspecified; Z85.46 Personal history of malignant neoplasm of prostate; Z88.0 Allergy status to penicillin; Z85.89 Personal history of malignant neoplasm of other organs and systems; E78.00 Pure hypercholesterolemia, unspecified
CPT/HCPCS: 0241U-QW; 36415; 70450-TC; 71045-TC-FY; 74177-TC; 80053; 80061; 81003; 82550; 82803; 82962; 83036; 83735; 84443; 84484; 85025; 85610; 85730; 87040; 87086; 93005; 93010; 96360; 99285-25; G0378; Q9967

== ENCOUNTER 2023-01-16 15:32 | Inpatient (IN) | payer OTHER, MEDICARE ==
[2023-01-16 16:59] LABS: ALBUMIN 2.7 g/dl (3.4-5.0); BILIRUBIN,TOTAL 0.2 mg/dl (0.2-1); CALCIUM 8.9 mg/dl (8.5-10); TOT PROT 6.2 g/dl (6.4-8.2)
[2023-01-16 18:23] LABS: VENOUS BASE EXCESS 4.5 mmol/L (-2-2); VENOUS O2 SATURATION 72.3 % (70-80); VENOUS PH 7.414 (7.310-7.410)
[2023-01-16 18:26] LABS: INR 1.04 (0.83-1.09)
[2023-01-16 18:29] LABS: ACTIVATED PTT 27.1 SECONDS (25.2-36.5)
[2023-01-16 18:43] LABS: HEMATOCRIT 31.7 % (35.4-49); HEMOGLOBIN 10.4 GM/dL (11.7-16.9); MCH 29.1 pg (25.7-33.7); MCHC 32.9 g/dl (32.0-35.9); MEAN CELL VOLUME 88.3 fl (80-96); MEAN PLT VOLUME 8.3 fl (7.5-11.1); PLATELET COUNT 236 10^3/uL (134-434); RBC 3.59 M/mm3 (4.00-5.60); RDW 15.4 % (11.9-15.9); WHITE BLOOD COUNT 7.1 K/mm3 (4.0-10.0)
[2023-01-16 19:21] LABS: N-TERMINAL BNP 251.7 pg/ml (5-450)
[2023-01-16 21:01] VITALS: BMI 22.4
[2023-01-17 11:07] LABS: HEMOGLOBIN 10.8 G/dL (11.7-16.9); MCH 28.7 pg (25.7-33.7); MCHC 31.7 g/dl (32.0-35.9); MEAN CELL VOLUME 90.6 fl (80-96); MEAN PLT VOLUME 8.5 fl (7.5-11.1); PLATELET COUNT 247.9 10^3/uL (134-434); RBC 3.75 10^6/uL (4.00-5.60); RDW 15.4 % (11.9-15.9); WHITE BLOOD COUNT 7.3 10^3/uL (4.0-10.8)
[2023-01-17 11:24] LABS: ALBUMIN 2.7 g/dl (3.4-5.0); BILIRUBIN,TOTAL 0.3 mg/dl (0.2-1); CALCIUM 8.7 mg/dl (8.5-10); CREATININE 0.9 mg/dl (0.55-1.3); TOT PROT 6.1 g/dl (6.4-8.2)
[2023-01-17] MEDS ORDERED: metFORMIN HCL 500 MG TABLET (FP) PO SCH (16:30)
[2023-01-17] MEDS: ATORVASTATIN CA 80 MG TABLET (FP) PO SCH (21:43)
[2023-01-17] MEDS: DIVALPROEX SODIUM 125 MG SPRINKLE CAPS PO SCH (21:44)
[2023-01-17] MEDS: SENNOSIDES/DOCUSATE COMBO (SENNA PLUS) TABLET (UD) PO PRN (21:46)
[2023-01-17] MEDS: PANTOPRAZOLE 40 MG TABLET PO SCH (21:46)
[2023-01-17] MEDS: QUEtiapine FUMARATE 25 MG TABLET PO SCH (21:46)
[2023-01-17] MEDS: INSULIN SLIDING SCALE (NOVOLOG) 1 VIAL SQ SCH (21:56)
[2023-01-17] MEDS ORDERED: URSODIOL 300 MG CAPSULE PO SCH (22:00)
[2023-01-18] MEDS: INSULIN SLIDING SCALE (NOVOLOG) 1 VIAL SQ SCH ×4 (07:37→21:46)
[2023-01-18] MEDS: DIVALPROEX SODIUM 125 MG SPRINKLE CAPS PO SCH ×3 (07:37→21:43)
[2023-01-18] MEDS: amLODIPine BESYLATE 10 MG TABLET (FP) PO SCH (09:25)
[2023-01-18] MEDS: ASPIRIN COATED 81 MG TABLET.EC PO SCH (09:25)
[2023-01-18] MEDS: SERTRALINE HCL 25 MG TABLET (FP) PO SCH (09:25)
[2023-01-18] MEDS: POLYETHYLENE GLYCOL (HEALTHYLAX) 3350 17 GM PACKET PO SCH (09:25)
[2023-01-18] MEDS: LISINOPRIL 20 MG TABLET PO SCH (09:25)
[2023-01-18] MEDS: PANTOPRAZOLE 40 MG TABLET PO SCH ×2 (09:25→21:43)
[2023-01-18 09:35] LABS: HEMATOCRIT 32.3 % (35.4-49); HEMOGLOBIN 10.9 G/dL (11.7-16.9); MCH 30.3 pg (25.7-33.7); MCHC 33.6 g/dl (32.0-35.9); MEAN CELL VOLUME 90.3 fl (80-96); MEAN PLT VOLUME 8.3 fl (7.5-11.1); PLATELET COUNT 245.7 10^3/uL (134-434); RBC 3.58 10^6/uL (4.00-5.60); RDW 15.3 % (11.9-15.9); WHITE BLOOD COUNT 7.1 10^3/uL (4.0-10.8)
[2023-01-18 09:37] LABS: CALCIUM 8.8 mg/dl (8.5-10); CREATININE 0.9 mg/dl (0.55-1.3)
[2023-01-18] MEDS: QUEtiapine FUMARATE 25 MG TABLET PO SCH (21:43)
[2023-01-18] MEDS: ATORVASTATIN CA 80 MG TABLET (FP) PO SCH (21:43)
[2023-01-19] MEDS: DIVALPROEX SODIUM 125 MG SPRINKLE CAPS PO SCH ×4 (06:39→21:29)
[2023-01-19] MEDS: INSULIN SLIDING SCALE (NOVOLOG) 1 VIAL SQ SCH ×4 (07:28→21:34)
[2023-01-19] MEDS: LISINOPRIL 20 MG TABLET PO SCH (10:21)
[2023-01-19] MEDS: ASPIRIN COATED 81 MG TABLET.EC PO SCH (10:21)
[2023-01-19] MEDS: SERTRALINE HCL 25 MG TABLET (FP) PO SCH (10:21)
[2023-01-19] MEDS: amLODIPine BESYLATE 10 MG TABLET (FP) PO SCH (10:22)
[2023-01-19] MEDS: PANTOPRAZOLE 40 MG TABLET PO SCH ×2 (10:22→21:29)
[2023-01-19] MEDS: POLYETHYLENE GLYCOL (HEALTHYLAX) 3350 17 GM PACKET PO SCH (10:22)
[2023-01-19] MEDS: ATORVASTATIN CA 80 MG TABLET (FP) PO SCH (21:29)
[2023-01-19] MEDS: SENNOSIDES/DOCUSATE COMBO (SENNA PLUS) TABLET (UD) PO PRN (21:29)
[2023-01-19] MEDS: QUEtiapine FUMARATE 25 MG TABLET PO SCH (21:29)
[2023-01-20 05:35] VITALS: PULSE 72
[2023-01-20] MEDS: DIVALPROEX SODIUM 125 MG SPRINKLE CAPS PO SCH ×2 (06:52→14:08)
[2023-01-20] MEDS: INSULIN SLIDING SCALE (NOVOLOG) 1 VIAL SQ SCH ×2 (06:53→12:04)
[2023-01-20 09:03] VITALS: RESP 18
[2023-01-20] MEDS ORDERED: MULTIVITAMINS (DAILY MVI) TABLET (FP) PO SCH (10:00)
[2023-01-20] MEDS ORDERED: ASCORBIC ACID 250 MG TABLET (FP) PO SCH (10:00)
[2023-01-20] MEDS ORDERED: ASCORBIC ACID 500 MG TABLET (FP) PO SCH (10:00)
[2023-01-20] MEDS: LISINOPRIL 20 MG TABLET PO SCH (10:16)
[2023-01-20] MEDS: amLODIPine BESYLATE 10 MG TABLET (FP) PO SCH (10:17)
[2023-01-20] MEDS: SERTRALINE HCL 25 MG TABLET (FP) PO SCH (10:17)
[2023-01-20] MEDS: PANTOPRAZOLE 40 MG TABLET PO SCH (10:17)
[2023-01-20] MEDS: ASPIRIN COATED 81 MG TABLET.EC PO SCH (10:17)
[2023-01-20] MEDS: POLYETHYLENE GLYCOL (HEALTHYLAX) 3350 17 GM PACKET PO SCH (10:18)
[2023-01-20 14:28] VITALS: BP 126/74; TEMP 98
== END 2023-01-20 14:35 | DRG 884 ==
LOC: FER 15:32 → FM/S 18:52
PROVIDERS: ADMIT Internal Medicine; ATTEND Family Medicine
DX: F03.90 Unspecified dementia, unspecified severity, without behavioral disturbance, psychotic disturbance, mood disturbance, and anxiety (principal); I69.359 Hemiplegia and hemiparesis following cerebral infarction affecting unspecified side; I25.10 Atherosclerotic heart disease of native coronary artery without angina pectoris; E78.5 Hyperlipidemia, unspecified; I10 Essential (primary) hypertension; E11.9 Type 2 diabetes mellitus without complications; Z79.84 Long term (current) use of oral hypoglycemic drugs; Z95.1 Presence of aortocoronary bypass graft; K21.9 Gastro-esophageal reflux disease without esophagitis; N40.0 Benign prostatic hyperplasia without lower urinary tract symptoms; F32.A Depression, unspecified; Z85.46 Personal history of malignant neoplasm of prostate; R77.8 Other specified abnormalities of plasma proteins
CPT/HCPCS: 0241U-QW; 36415; 70450-TC; 71045-TC-FY; 74177-TC; 80048; 80053; 81003; 81015; 82803; 82962; 83605; 83690; 83880; 84484; 85025; 85027; 85610; 85730; 87086; 93005; 99285-25; C9803-CS; Q9967; U0003; U0005

== ENCOUNTER 2023-02-15 20:03 | Inpatient (IN) | payer OTHER, MEDICARE ==
[2023-02-15 22:48] LABS: HEMATOCRIT 40.9 % (35.4-49); HEMOGLOBIN 13.2 G/dL (11.7-16.9); MCH 29.7 pg (25.7-33.7); MCHC 32.3 g/dl (32.0-35.9); MEAN CELL VOLUME 91.8 fl (80-96); MEAN PLT VOLUME 8.7 fl (7.5-11.1); RBC 4.45 10^6/uL (4.00-5.60); RDW 16.4 % (11.9-15.9); WHITE BLOOD COUNT 12.3 10^3/uL (4.0-10.8)
[2023-02-15 23:06] LABS: BILIRUBIN,TOTAL 0.3 mg/dl (0.2-1); CALCIUM 9.2 mg/dl (8.5-10); CREATININE 0.9 mg/dl (0.55-1.3); TOT PROT 6.6 g/dl (6.4-8.2)
[2023-02-15 23:27] LABS: EPITHELIAL CELLS RARE /hpf
[2023-02-16] MEDS ORDERED: ACETAMINOPHEN 1000 MG/100 ML BAG IVPB PRN (03:48)
[2023-02-16 05:05] VITALS: BMI 22.1
[2023-02-16] MEDS: SODIUM CHLORIDE 1,000 ML IV SCH (05:44)
[2023-02-16] MEDS: INSULIN SLIDING SCALE (NOVOLOG) 1 VIAL SQ SCH ×4 (06:05→21:28)
[2023-02-16 10:16] LABS: BASO % 0.3 % (0-2.0); EOS % 1.8 % (0-4.5); HEMATOCRIT 33.4 % (35.4-49); HEMOGLOBIN 11.2 GM/dL (11.7-16.9); LYMPH % 13.9 % (8-40); MCH 29.2 pg (25.7-33.7); MCHC 33.5 g/dl (32.0-35.9); MEAN CELL VOLUME 87.1 fl (80-96); MONO % 12.2 % (3.8-10.2); NEUT % 71.8 % (42.8-82.8); PLATELET COUNT 213 10^3/uL (134-434); RBC 3.84 M/mm3 (4.00-5.60); RDW 16.1 % (11.9-15.9); WHITE BLOOD COUNT 11.3 K/mm3 (4.0-10.0)
[2023-02-16] MEDS ORDERED: DOCUSATE SODIUM 100 MG CAPSULE (FP) PO PRN (11:02)
[2023-02-16] MEDS ORDERED: oxyCODONE HCL 5 MG TABLET PO PRN (11:02)
[2023-02-16] MEDS: ASPIRIN COATED 81 MG TABLET.EC PO SCH (11:32)
[2023-02-16] MEDS: LISINOPRIL 10 MG TABLET PO SCH (11:32)
[2023-02-16] MEDS: amLODIPine BESYLATE 10 MG TABLET (FP) PO SCH (11:32)
[2023-02-16] MEDS: SERTRALINE HCL 25 MG TABLET (FP) PO SCH (11:32)
[2023-02-16] MEDS: POLYETHYLENE GLYCOL (HEALTHYLAX) 3350 17 GM PACKET PO SCH (12:26)
[2023-02-16] MEDS: metFORMIN HCL 500 MG TABLET (FP) PO SCH (17:14)
[2023-02-16] MEDS: ATORVASTATIN CA 80 MG TABLET (FP) PO SCH (21:30)
[2023-02-16] MEDS: QUEtiapine FUMARATE 25 MG TABLET PO SCH (21:30)
[2023-02-16] MEDS: URSODIOL 300 MG CAPSULE PO SCH (22:11)
[2023-02-17] MEDS ORDERED: ACETAMINOPHEN 325 MG TABLET (FP) PO PRN (03:39)
[2023-02-17] MEDS: SODIUM CHLORIDE 1,000 ML IV SCH (06:28)
[2023-02-17] MEDS: INSULIN SLIDING SCALE (NOVOLOG) 1 VIAL SQ SCH ×4 (06:30→22:06)
[2023-02-17] MEDS: metFORMIN HCL 500 MG TABLET (FP) PO SCH ×2 (06:30→16:08)
[2023-02-17 08:17] LABS: CALCIUM 8.7 mg/dl (8.5-10); CREATININE 0.9 mg/dl (0.55-1.3); MAGNESIUM 1.6 mg/dL (1.8-2.4); PHOSPHOROUS 3.1 mg/dl (2.5-4.9); POTASSIUM 3.3 mmol/L (3.5-5.1)
[2023-02-17] MEDS ORDERED: POTASSIUM CHLORIDE TABS 20 MEQ TABLET.ER (FP) PO ONE (08:36)
[2023-02-17] MEDS ORDERED: MAGNESIUM SULF 50% (8.12 MEQ/2 ML-1 GM VIAL) IVPB ONE (08:36)
[2023-02-17] MEDS ORDERED: POTASSIUM CHLORIDE ORAL LIQUID 20 MEQ/15 ML PO ONE (09:08)
[2023-02-17] MEDS: LISINOPRIL 10 MG TABLET PO SCH (09:35)
[2023-02-17] MEDS: URSODIOL 300 MG CAPSULE PO SCH ×2 (09:35→21:57)
[2023-02-17] MEDS: ASPIRIN COATED 81 MG TABLET.EC PO SCH (09:35)
[2023-02-17] MEDS: SERTRALINE HCL 25 MG TABLET (FP) PO SCH (09:35)
[2023-02-17] MEDS: amLODIPine BESYLATE 10 MG TABLET (FP) PO SCH (09:35)
[2023-02-17] MEDS: POLYETHYLENE GLYCOL (HEALTHYLAX) 3350 17 GM PACKET PO SCH (09:35)
[2023-02-17] MEDS: KCL 10 MEQ IVPB 10 MEQ/100 ML INFUS.BAG IVPB SCH ×3 (10:52→12:20)
[2023-02-17] MEDS: SODIUM CHLORIDE 0.45%/POT 20 MEQ/1,000 ML INFUS.BAG IV SCH (21:56)
[2023-02-17] MEDS: ATORVASTATIN CA 80 MG TABLET (FP) PO SCH (21:57)
[2023-02-17] MEDS: QUEtiapine FUMARATE 25 MG TABLET PO SCH (21:57)
[2023-02-18 06:40] VITALS: RESP 18
[2023-02-18] MEDS: metFORMIN HCL 500 MG TABLET (FP) PO SCH ×2 (06:43→18:18)
[2023-02-18] MEDS: INSULIN SLIDING SCALE (NOVOLOG) 1 VIAL SQ SCH ×4 (06:44→22:11)
[2023-02-18] MEDS: amLODIPine BESYLATE 10 MG TABLET (FP) PO SCH (10:49)
[2023-02-18] MEDS: SERTRALINE HCL 25 MG TABLET (FP) PO SCH (10:49)
[2023-02-18] MEDS: ASPIRIN COATED 81 MG TABLET.EC PO SCH (10:50)
[2023-02-18] MEDS: POLYETHYLENE GLYCOL (HEALTHYLAX) 3350 17 GM PACKET PO SCH (10:50)
[2023-02-18] MEDS: LISINOPRIL 10 MG TABLET PO SCH (10:51)
[2023-02-18] MEDS: URSODIOL 300 MG CAPSULE PO SCH ×2 (10:51→22:10)
[2023-02-18] MEDS: QUEtiapine FUMARATE 25 MG TABLET PO SCH (22:10)
[2023-02-18] MEDS: SODIUM CHLORIDE 0.45%/POT 20 MEQ/1,000 ML INFUS.BAG IV SCH (22:10)
[2023-02-18] MEDS: ATORVASTATIN CA 80 MG TABLET (FP) PO SCH (22:10)
[2023-02-19] MEDS: INSULIN SLIDING SCALE (NOVOLOG) 1 VIAL SQ SCH ×2 (06:45→11:27)
[2023-02-19] MEDS: metFORMIN HCL 500 MG TABLET (FP) PO SCH (06:45)
[2023-02-19] MEDS: POLYETHYLENE GLYCOL (HEALTHYLAX) 3350 17 GM PACKET PO SCH (11:11)
[2023-02-19] MEDS: LISINOPRIL 10 MG TABLET PO SCH ×2 (11:11→11:59)
[2023-02-19] MEDS: URSODIOL 300 MG CAPSULE PO SCH ×2 (11:11→11:59)
[2023-02-19] MEDS: ASPIRIN COATED 81 MG TABLET.EC PO SCH ×2 (11:11→11:59)
[2023-02-19] MEDS: amLODIPine BESYLATE 10 MG TABLET (FP) PO SCH ×2 (11:11→11:59)
[2023-02-19] MEDS: SERTRALINE HCL 25 MG TABLET (FP) PO SCH ×2 (11:12→11:59)
[2023-02-19] MEDS ORDERED: ACETAMINOPHEN 1000 MG/100 ML BAG IVPB ONE (12:00)
[2023-02-19 14:24] VITALS: BP 131/67; PULSE 69; TEMP 97.7
== END 2023-02-19 15:20 | DRG 690 ==
LOC: FER 20:03 → FM/S 02-16 03:45 → OBSVTOIN 02-18 10:41
PROVIDERS: ADMIT Internal Medicine; ATTEND Family Medicine
DX: N39.0 Urinary tract infection, site not specified (principal); I69.354 Hemiplegia and hemiparesis following cerebral infarction affecting left non-dominant side; I25.10 Atherosclerotic heart disease of native coronary artery without angina pectoris; I10 Essential (primary) hypertension; E78.5 Hyperlipidemia, unspecified; N40.0 Benign prostatic hyperplasia without lower urinary tract symptoms; E83.42 Hypomagnesemia; E87.6 Hypokalemia; F41.8 Other specified anxiety disorders; F03.90 Unspecified dementia, unspecified severity, without behavioral disturbance, psychotic disturbance, mood disturbance, and anxiety; B96.4 Proteus (mirabilis) (morganii) as the cause of diseases classified elsewhere; Z88.0 Allergy status to penicillin; Z95.1 Presence of aortocoronary bypass graft; Z85.46 Personal history of malignant neoplasm of prostate
CPT/HCPCS: 0241U-QW; 36415; 80048; 80053; 81003; 81015; 82962; 83735; 84100; 85025; 85027; 87086; 87186; 93005; 99285-25; G0378; J3480

== ENCOUNTER 2023-07-09 05:12 | Emergency (ER) | payer OTHER, MEDICARE ==
[2023-07-09] MEDS ORDERED: ACETAMINOPHEN 1000 MG/100 ML BAG IVPB ONE (05:33)
[2023-07-09] MEDS ORDERED: ACETAMINOPHEN INJECTION 100 ML IVPB ONE (06:22)
[2023-07-09 06:50] LABS: BASO % 0.4 % (0-2.0); EOS % 1.6 % (0-4.5); HEMOGLOBIN 11.4 GM/dL (11.7-16.9); LYMPH % 23.1 % (8-40); MCH 28.5 pg (25.7-33.7); MCHC 32.5 g/dl (32.0-35.9); MEAN CELL VOLUME 87.5 fl (80-96); MONO % 13.2 % (3.8-10.2); NEUT % 61.7 % (42.8-82.8); PLATELET COUNT 263 10^3/uL (134-434); RDW 15.5 % (11.9-15.9); WHITE BLOOD COUNT 8.9 K/mm3 (4.0-10.0)
[2023-07-09 07:05] LABS: EPI CELLS 2 /uL (0-25.1); HYALINE CASTS 1 /uL (0-3.1); PH,URINE 6.5 (5.0-8.0); URINE APPEARANCE CLOUDY; URINE BACTERIA 534 /uL (0-1359); URINE BILIRUBIN NEGATIVE (NEGATIVE); URINE COLOR YELLOW; URINE GLUCOSE (UA) NEGATIVE (NEGATIVE); URINE KETONE TRACE (NEGATIVE); URINE LEUK ESTERASE 3+ (NEGATIVE); URINE NITRITE NEGATIVE (NEGATIVE); URINE PROTEIN 1+ (NEGATIVE); URINE RBC 300 /uL (0-23.9); URINE WBC 6495 /uL (0-25.8)
[2023-07-09 07:10] LABS: POTASSIUM 4.1 mmol/L (3.5-5.1)
[2023-07-09 07:12] LABS: ALBUMIN 2.8 g/dl (3.4-5.0); BLOOD UREA NITROGEN 24.2 mg/dL (7-18); CALCIUM 9.2 mg/dL (8.5-10.1)
[2023-07-09 07:16] LABS: CREATININE 0.9 mg/dL (0.55-1.3)
[2023-07-09 07:18] LABS: BILIRUBIN,TOTAL 0.3 mg/dL (0.2-1); TOT PROT 6.5 g/dl (6.4-8.2)
[2023-07-09] MEDS ORDERED: HALOPERIDOL LACTATE 5 MG/ML IM ONE ×2 (07:31)
[2023-07-09 10:29] VITALS: TEMP 97.5
[2023-07-09] MEDS ORDERED: CEFTRIAXONE 1,000 MG in DEXTROSE 5%-WATER - 50 ML IVPB ONE (10:45)
[2023-07-09] MEDS ORDERED: CEFTRIAXONE 1 GM/50 ML BAG ONE (10:49)
[2023-07-10 00:34] VITALS: RESP 18
[2023-07-10 03:25] VITALS: BP 122/66; PULSE 60
== END 2023-07-10 03:37 | disposition home or self-care (01) ==
LOC: JER 05:12
PROC: 0HQ0XZZ Repair Scalp Skin, External Approach (ICD-10-PCS; principal; 2023-07-09)
PROC: 0T9B70Z Drainage of Bladder with Drainage Device, Via Natural or Artificial Opening (ICD-10-PCS; 2023-07-09)
PROC: 3E03329 Introduction of Other Anti-infective into Peripheral Vein, Percutaneous Approach (ICD-10-PCS; 2023-07-09)
PROC: 3E033NZ Introduction of Analgesics, Hypnotics, Sedatives into Peripheral Vein, Percutaneous Approach (ICD-10-PCS; 2023-07-09)
PROC: 3E023GC Introduction of Other Therapeutic Substance into Muscle, Percutaneous Approach (ICD-10-PCS; 2023-07-09)
PROC: 3E023GC Introduction of Other Therapeutic Substance into Muscle, Percutaneous Approach (ICD-10-PCS; 2023-07-09)
DX: S01.81XA Laceration without foreign body of other part of head, initial encounter (principal); S00.01XA Abrasion of scalp, initial encounter; N30.01 Acute cystitis with hematuria; W19.XXXA Unspecified fall, initial encounter
CPT/HCPCS: 36415; 70450-TC; 71045-TC-FY; 72125-TC; 72170-TC-FY; 80053; 81003; 84484; 85025; 87086; 87186; 93005; 93010; 99285-25